=== PATIENT | male | born 1955 | race Caucasian/White ===

== ENCOUNTER 2019-02-18 12:41 | Inpatient (IN) | payer BC ==
[2019-02-18] MEDS ORDERED: NS 0.9% 1000 ML** 1,000 ML IV ONE ×2 (13:05→13:59)
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
[2019-02-18 14:21] LABS: ABS Basophils 0.1 10^3/ul (0-0.2); ABS Eosinophils 0 10^3/ul (0-0.6); ABS Monocytes 1.2 10^3/ul (0-0.8); ABS Neutrophils 13.8 10^3/ul (1.5-7.7); ABS Nucleated RBC 0 10^3/ul; Eosinophil % 0.1 %; Hematocrit 29 % (36-46); Hemoglobin 9.7 g/dL (14.0-18.0); Mean Corpuscular HGB Conc 33 g/dL (31-36); Mean Corpuscular Hemoglobin 31 pg (27-31); Mean Corpuscular Volume 95 fL (80-94); Mean Platelet Volume 8.1 fL (7.4-10.4); Nucleated Red Blood Cells % 0; Platelet Count 445 10^3/uL (150-450); Red Cell Distribution Width 13 % (10.5-15)
[2019-02-18 14:41] LABS: Troponin I 0.02 ng/mL (<0.04)
[2019-02-18 14:52] LABS: Albumin 2.9 g/dL (3.2-5.2); Albumin/Globulin Ratio 0.7 (1-3); BUN/Creatinine Ratio 22.1 (8-20); Calcium 8.3 mg/dL (8.6-10.3); EGFR African American 67.3 (>60); EGFR Non-African American 55.6 (>60); Magnesium 1.6 mg/dL (1.9-2.7); Potassium 4.2 mmol/L (3.5-5.0); Total Bilirubin 0.5 mg/dL (0.2-1.0); Total Protein 6.9 g/dL (6.4-8.9)
[2019-02-18] MEDS ORDERED: Insulin REGULAR(*) 1 UNITS UNIT IV PUSH ONE (15:10)
[2019-02-18] MEDS ORDERED: Insulin IVPB 100 units/100 ml 100 UNITS/100 ML UNIT IVPB ONE (15:10)
[2019-02-18] MEDS ORDERED: Ondansetron INJ* 2 MG/ML VIAL IV PRN (16:32)
[2019-02-18] MEDS ORDERED: Magnesium Sulfate 2 GM IV* 2 GM/50 ML BAG IVPB ONE (16:45)
[2019-02-18] MEDS ORDERED: Dextrose 50% Syringe 50 ML* 25 GM/50 ML SYRINGE IV PUSH PRN ×2 (17:00→19:17)
[2019-02-18] MEDS ORDERED: Insulin GLARGINE(*) 1 UNITS UNIT SUBCUT ONE (17:00)
[2019-02-18] MEDS ORDERED: Insulin LISPRO* 1 UNITS UNIT SUBCUT ONE (17:00)
[2019-02-18] MEDS ORDERED: Acetaminophen TAB* 325 MG PO PRN (17:07)
[2019-02-18] MEDS ORDERED: Lorazepam PYXIS KEY PRN (17:14)
[2019-02-18] MEDS ORDERED: Iodixanol* (CONTRAST) 320 MG/ML 100 ML SDV IV ONE (17:30)
[2019-02-18] MEDS ORDERED: LORazepam TAB(*) 1 MG PO SCH (18:00)
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
[2019-02-18] MEDS: NS 0.9% 1000 ML** 1,000 ML IV SCH (19:23)
[2019-02-18] MEDS: oxyCODONE TAB* 5 MG TAB PO PRN ×2 (20:16→23:24)
[2019-02-18] MEDS: Metoprolol Succinate XL TAB* 100 MG PO SCH (20:16)
[2019-02-18] MEDS: Nicotine Patch Removal NOTE PATCH OFF SCH (20:17)
[2019-02-18] MEDS: Insulin LISPRO* 1 UNITS UNIT SUBCUT SCH (20:18)
[2019-02-18 22:28] LABS: BUN/Creatinine Ratio 21.1 (8-20); EGFR African American 83.2 (>60); EGFR Non-African American 68.8 (>60); Potassium 3.1 mmol/L (3.5-5.0)
[2019-02-18] MEDS: KCL 20 MEQ/100 ML IVPREMIX* 20 MEQ/100 ML BAG IV SCH (23:22)
[2019-02-19] MEDS: KCL 20 MEQ/100 ML IVPREMIX* 20 MEQ/100 ML BAG IV SCH ×2 (01:36→03:49)
[2019-02-19] MEDS: NS 0.9% 1000 ML** 1,000 ML IV SCH ×3 (03:18→19:59)
[2019-02-19 07:03] LABS: Calcium 7.8 mg/dL (8.6-10.3); Magnesium 1.6 mg/dL (1.9-2.7); Potassium 4.4 mmol/L (3.5-5.0)
[2019-02-19 07:09] LABS: BUN/Creatinine Ratio 21.1 (8-20); EGFR African American 97.5 (>60); EGFR Non-African American 80.6 (>60)
[2019-02-19 07:27] LABS: TSH (Thyroid Stimulating Horm) 0.8 mcIU/mL (0.34-5.60)
[2019-02-19 07:47] LABS: ABS Basophils 0.1 10^3/ul (0-0.2); ABS Eosinophils 0 10^3/ul (0-0.6); ABS Lymphocytes 0.8 10^3/ul (1.0-4.8); ABS Monocytes 1.1 10^3/ul (0-0.8); ABS Neutrophils 12.1 10^3/ul (1.5-7.7); ABS Nucleated RBC 0 10^3/ul; Eosinophil % 0.1 %; Hematocrit 28 % (36-46); Hemoglobin 9.1 g/dL (14.0-18.0); Lymphocyte % 5.7 %; Mean Corpuscular HGB Conc 33 g/dL (31-36); Mean Corpuscular Hemoglobin 31 pg (27-31); Mean Corpuscular Volume 94 fL (80-94); Mean Platelet Volume 7.7 fL (7.4-10.4); Nucleated Red Blood Cells % 0; Platelet Count 407 10^3/uL (150-450); Red Blood Count 2.93 10^6 /uL (4.18-5.48); Red Cell Distribution Width 13 % (10.5-15); White Blood Count 14.1 10^3/uL (3.5-10.8)
[2019-02-19] MEDS: Tiotropium CAP.INH* CAP.INH/18 MCG (USE ORDER SET !) INH SCH (07:49)
[2019-02-19] MEDS: Insulin LISPRO* 1 UNITS UNIT SUBCUT SCH ×4 (08:34→21:20)
[2019-02-19] MEDS: Atorvastatin* 40 MG TAB PO SCH (08:35)
[2019-02-19] MEDS: Folic Acid TAB* 1 MG PO SCH (08:35)
[2019-02-19] MEDS: Multivitamins/Minerals TAB PO SCH (08:35)
[2019-02-19] MEDS: Thiamine TAB* 100 MG TAB PO SCH (08:35)
[2019-02-19] MEDS: Pantoprazole TAB * 40 MG TAB PO SCH (08:35)
[2019-02-19] MEDS: Nicotine PATCH 14 MG/24 HR* PATCH TRANSDERM SCH (08:35)
[2019-02-19] MEDS ORDERED: Magnesium Sulfate 2 GM IV* 2 GM/50 ML BAG IVPB ONE (08:38)
[2019-02-19] MEDS: oxyCODONE TAB* 5 MG TAB PO PRN ×5 (08:43→22:27)
[2019-02-19] MEDS ORDERED: NS 0.9% 1000 ML** 1,000 ML IV ONE ×2 (08:50→10:48)
[2019-02-19] MEDS ORDERED: Spiriva Inhaler DEVICE* 1 EACH DEVICE INH ONE (09:00)
[2019-02-19] MEDS ORDERED: Insulin GLARGINE(*) 1 UNITS UNIT SUBCUT SCH (09:00)
[2019-02-19] MEDS: Metoprolol Succinate XL TAB* 100 MG PO SCH (09:40)
[2019-02-19] MEDS: Insulin GLARGINE(*) 1 UNITS UNIT SUBCUT SCH (10:10)
[2019-02-19] MEDS ORDERED: Piperacillin/Tazobac ADVAN(*) 3.375 GM in NS 0.9% 100 ML* 100 ML IVPB ONE (12:53)
[2019-02-19] MEDS ORDERED: Zosyn per Pharmacy* NOTE FOLLOW UP SCH (13:00)
[2019-02-19] MEDS: guaiFENesin ER TAB 600 MG PO SCH ×2 (13:57→21:18)
[2019-02-19] MEDS: Azithromycin 500 mg/250 ml NS 500 MG/250 ML BAG IVPB SCH (15:17)
--- NOTE | 2019-02-19 16:32 | PN ---
Subjective Date of Service: 02/19/19 Interval History: Patient seen and examined. States he is in a lot of pain today, localized to right shoulder and chest wall, some in the right upper back. No overt shortness of breath, has a primarily unproductive cough. Denies fevers or chills, no night sweats. This morning BP was low with SBP around 90 with associated tachycardia, no fever. Blood glucose remains high. Objective Active Medications: Acetaminophen (Tylenol Tab*) 650 mg PO Q4H PRN PRN Reason: FEVER/PAIN Atorvastatin Calcium (Lipitor*) 40 mg PO DAILY [facility] Last Admin: 02/19/19 08:35 Dose: 40 mg Dextrose (D50w Syringe 50 Ml*) 12.5 gm IV PUSH .FOR FS < 60 - SS PRN PRN Reason: FS < 60 Folic Acid (Folvite Tab*) 1 mg PO DAILY [facility] Last Admin: 02/19/19 08:35 Dose: 1 mg Guaifenesin (Mucinex*) 600 mg PO BID [facility] Last Admin: 02/19/19 13:57 Dose: 600 mg Sodium Chloride (Ns 0.9% 1000 Ml) 1,000 mls @ 150 mls/hr IV PER RATE [facility] Last Admin: 02/19/19 12:05 Dose: 150 mls/hr Azithromycin (Zithromax 500 Mg/250 Ml) 500 mg in 250 mls @ 250 mls/hr IVPB Q24H [facility] Last Admin: 02/19/19 15:17 Dose: 250 mls/hr Piperacillin Sod/Tazobactam (Sod 3.375 gm/ Sodium Chloride) 100 mls @ 25 mls/ hr IVPB Q8H [facility] Insulin Glargine (Lantus(*)) 16 units SUBCUT Q24H [facility] Last Admin: 02/19/19 10:10 Dose: 11 unit Insulin Human Lispro (Humalog*) 0 units SUBCUT ACHS [facility]; Protocol Last Admin: 02/19/19 13:45 Dose: 6 units Lorazepam (Ativan Tab(*)) 0 - 6 mg PO .PER [facility] PROTOCOL [facility]; Protocol Metoprolol Succinate (Toprol Xl Tab*) 100 mg PO BID [facility] Last Admin: 02/19/19 09:40 Dose: Not Given Miscellaneous (Ativan Pyxis Adam) 1 ea N/A .PYXIS ADAM PRN PRN Reason: PER PROTOCOL Multivitamins/Minerals (Theragran/Minerals Tab*) 1 tab PO DAILY [facility] Last Admin: 02/19/19 08:35 Dose: 1 tab Nicotine (Nicotine Patch 14 Mg/24 Hr*) 1 patch TRANSDERM DAILY [facility] Last Admin: 02/19/19 08:35 Dose: Not Given Ondansetron HCl (Zofran Inj*) 4 mg IV Q4H PRN PRN Reason: NAUSEA/VOMITING Oxycodone HCl (Roxycodone Tab*) 10 mg PO BEDTIME PRN PRN Reason: PAIN Last Admin: 02/18/19 23:24 Dose: 5 mg Oxycodone HCl (Roxycodone Tab*) 10 mg PO Q8H PRN PRN Reason: PAIN - SEVERE Last Admin: 02/19/19 12:08 Dose: 10 mg Oxycodone HCl (Roxycodone Tab*) 5 mg PO Q4H PRN PRN Reason: PAIN - MODERATE Pantoprazole Sodium (Protonix Tab*) 40 mg PO DAILY [facility] Last Admin: 02/19/19 08:35 Dose: 40 mg Pharmacy Consult (Zosyn Per Pharmacy*) 1 note FOLLOW UP .ZOSYN PER PHARMACY [facility] Pharmacy Profile Note (Nicotine Patch Removal Note*) 1 note PATCH OFF 2100 [facility] Last Admin: 02/18/19 20:17 Dose: Not Given Thiamine HCl (Vitamin B-1 Tab*) 100 mg PO DAILY [facility] Last Admin: 02/19/19 08:35 Dose: 100 mg Tiotropium Hanna (Spiriva Cap.Inh*) 1 cap INH DAILY [facility] Last Admin: 02/19/19 07:49 Dose: 1 cap Vital Signs - 8 hr 02/19/19 02/19/19 02/19/19 08:43 09:40 10:40 Temperature 98.8 F Pulse Rate 102 Respiratory 12 30 Rate Blood Pressure 104/54 90/50 (mmHg) O2 Sat by Pulse 93 Oximetry 02/19/19 02/19/19 02/19/19 11:00 11:05 12:00 Temperature Pulse Rate Respiratory 28 Rate Blood Pressure 90/62 115/70 (mmHg) O2 Sat by Pulse Oximetry 02/19/19 02/19/19 02/19/19 12:08 13:24 13:27 Temperature 97.1 F Pulse Rate 94 Respiratory 32 18 Rate Blood Pressure 87/63 104/60 (mmHg) O2 Sat by Pulse 88 92 Oximetry 02/19/19 02/19/19 02/19/19 14:00 14:09 15:30 Temperature 97.0 F 97.0 F Pulse Rate 98 98 Respiratory 14 14 32 Rate Blood Pressure 100/59 100/59 (mmHg) O2 Sat by Pulse 93 93 Oximetry 02/19/19 02/19/19 15:35 15:36 Temperature 98.7 F Pulse Rate 105 Respiratory 20 Rate Blood Pressure 108/64 (mmHg) O2 Sat by Pulse 98 Oximetry Oxygen Devices in Use Now: None Appearance: alert, NAD Eyes: No Scleral Icterus, PERRLA Ears/Nose/Mouth/Throat: NL Teeth, Lips, Gums, Mucous Membranes Moist Neck: NL Appearance and Movements; NL JVP, Trachea Midline Respiratory: Symmetrical Chest Expansion and Respiratory Effort, - - diminished RUL with area of poor air exchange, no wheeze or rhonchi noted Cardiovascular: NL Sounds; No Murmurs; No JVD, RRR, No Edema Abdominal: NL Sounds; No Tenderness; No Distention Extremities: No Edema, No Clubbing, Cyanosis Skin: No Rash or Ulcers, No Nodules or Sclerosis Neurological: Alert and Oriented x 3, NL Sensation, NL Gait Nutrition: Taking PO's Result Diagrams: 02/19/19 07:34 02/19/19 06:22 Diagnostic Imaging: Patient Name: CARMINA LEÓN Medical Record#: [id number] Ordering Physician: Nohemy Ham NP Acct.#: [id number] : 1955 Age: 63 Sex: M Location: [address] [place] [address] MEDICAL Exam Date: 02/18/191638 ADM Status: ADM Joe Order Information: CTA CHEST Accession Number: [id number] CPT: 78462 INDICATION: Right lung mass. COMPARISON: Comparison is made with a prior CT of the chest from February 17, 2019. TECHNIQUE: A CT angiogram of the chest was performed with intravenous following intravenous injection of 79 ml of Visipaque 320 nonionic contrast. Contiguous axial sections were obtained from the lung apices through the lung bases. Images were reconstructed in the coronal and sagittal planes. FINDINGS: PULMONARY ARTERIES: There is relatively homogeneous opacification of the pulmonary arteries. No intraluminal filling defect or pulmonary embolism is seen. HEART: The heart is within normal limits in size. No pericardial effusion is present. There are coronary calcifications present. THORACIC AORTA: The thoracic aorta is normal in caliber and demonstrates homogeneous contrast opacification. LUNGS: There is a large masslike infiltrate present in the right upper lobes with internal cystic change and air bronchograms. This is unchanged from the recent prior CT of the chest No pleural effusion is present. MEDIASTINUM: There are enlarged lymph nodes present in the right paratracheal region at the thoracic inlet measuring 1.4 cm in transverse dimension. There are enlarged precarinal lymph nodes measuring 1.4 cm in size. There are also enlarged aorticopulmonary window lymph nodes. There are multiple enlarged right hilar lymph nodes measuring up to 2.2 cm in transverse dimension. ABDOMEN: No acute findings are seen on the visualized portion of the upper abdomen. The liver appears enlarged with fatty infiltration with a more focal area of decreased density present in the anterior aspect of the left hepatic lobe adjacent to a falciform ligament suggestive of more focal fatty infiltration. There are bilateral adrenal masses measuring 1.9 x 0.9 cm on the right side and 3.0 x 2.5 cm on the left side. These appear unchanged from prior CTs of the chest dating back to October 2016 and therefore most consistent with benign adenomas. In addition there is a nodule arising from the superior aspect of the left kidney measuring 2.5 x 1.7 cm in size measuring greater than fluid density consistent with a complex cyst or solid mass. This is also relatively stable when compared with the prior CT studies. BONES: No significant focal osseous abnormality is seen. IMPRESSION: 1. NO EVIDENCE FOR PULMONARY EMBOLISM. 2. LARGE MASSLIKE RIGHT UPPER LOBE INFILTRATE. DIFFERENTIAL DIAGNOSIS WOULD INCLUDE NECROTIZING PNEUMONIA OR ALTERNATIVELY A NEOPLASTIC PROCESS. 3. ENLARGED MEDIASTINAL AND RIGHT HILAR LYMPH NODES. 4. STABLE BILATERAL ADRENAL MASSES. 4. HEPATOMEGALY AND HEPATIC STENOSIS. Assess/Plan/Problems-Billing Assessment: This is a 63 year old male with hx of COPD and ETOH use that presented to the ER after being sent by his PCP for evaluation of abnormal findings on screening chest CT. - Patient Problems (1) Necrotizing pneumonia Code(s): J85.0 - GANGRENE AND NECROSIS OF LUNG SNOMED Code(s): 6619157 Comment: - Discussed CTA chest with Dr. Singleton and Dr Fatima, although lung mass may be in the differential, patient's presentation is more consistent with a necrotizing pneumonia, especially given hypotension, fever, tachycardia, hyperglycemia and leukocytosis - Will treat for CAP, check urine strep antigen and legionella, start empiric zosyn and azithromycin, obtain sputum culture - Blood cultures checked this morning when patient became hypotensive, will follow - Nebs PRN, mucinex BID, flutter valve - No immediate indication for biopsy at this time. If this does represent a mass with a post-obstructive pneumonia, will still need to treat with antibiotics now, then attempt bronchoscopy or US guided biopsy in the near future (2) COPD (chronic obstructive pulmonary disease) Code(s): J44.9 - CHRONIC OBSTRUCTIVE PULMONARY DISEASE, UNSPECIFIED SNOMED Code(s): 38388673 Comment: - History of tobacco use - Continue home inhalers (3) EtOH dependence Code(s): F10.20 - ALCOHOL DEPENDENCE, UNCOMPLICATED SNOMED Code(s): 19583136 Comment: - On [facility] protocol, not currently scoring - continue folic acid, thiamine and multivitamin (4) Uncontrolled type 2 diabetes mellitus with hyperglycemia Code(s): E11.65 - TYPE 2 DIABETES MELLITUS WITH HYPERGLYCEMIA SNOMED Code(s): 159222890 Comment: - A1c 14.9 - Initially no anion gap, however sugars have remained elevated since admission and gap is 15 today - Recheck labs in AM; potassium corrected, sodium remains low, replete magnesium - s/p 2 liter bolus this morning, continue IVNS at 150ml/hr - Increase weight-based lantus to 18units daily, continue lispro SS with CC diet limit 2 carb per meal - Will consult endocrine before discharge to address revised outpatient med regimen (5) Chronic pain Code(s): G89.29 - OTHER CHRONIC PAIN SNOMED Code(s): 92679521 Comment: - Continue oxycodone at lower dose given low BP - May want to consider gabapentin or other synergistic agent rather that adding narcotics given acute illness (6) Hypotension Comment: - Concern for sepsis this morning, however, repeat lactic is 1.1 - Responded well to NS boluses x2 - Tachycardia is likely 2/2 alcohol withdrawl and severe dehydration/ hyperglycemia rather than sepsis - Hold metoprolol, restart short acting at lower dose when BP stable (7) DVT prophylaxis Code(s): PSS2201 - SNOMED Code(s): 121814845 Comment: - HSQ (8) Full code status Code(s): Z78.9 - OTHER SPECIFIED HEALTH STATUS SNOMED Code(s): 586574701 Status and Disposition: Inpatient, acute/guarded.
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
[2019-02-19 17:10] LABS: Urine Appearance Cloudy; Urine Bacteria Absent (Absent); Urine Bilirubin Negative (Negative); Urine Blood 1+ (Negative); Urine Color Yellow; Urine Glucose 2+(150 mg/dL) (Negative); Urine Ketones Trace (Negative); Urine Nitrite Negative (Negative); Urine Protein Negative (Negative); Urine Red Blood Cell Trace(0-2/hpf) (Absent); Urine Specific Gravity 1.011 (1.010-1.030); Urine Squamous Epithelial Cell Present (Absent); Urine Urobilinogen Negative (Negative); Urine White Blood Cell 1+(6-10/hpf) (Absent)
[2019-02-19] MEDS: ZOSYN 3.375 GM Q8H per EXTENDED INFUSION IVPB SCH ×2 (18:00)
[2019-02-19] MEDS: Nicotine Patch Removal NOTE PATCH OFF SCH (21:14)
[2019-02-19] MEDS: Acetaminophen TAB* 325 MG PO PRN (21:18)
[2019-02-19] MEDS: Heparin VIAL(*) 5000 UNITS/ML VIAL (FIVE THOUSAND) SUBCUT SCH (21:20)
[2019-02-20] MEDS: ZOSYN 3.375 GM Q8H per EXTENDED INFUSION IVPB SCH ×6 (02:05→19:29)
[2019-02-20] MEDS: NS 0.9% 1000 ML** 1,000 ML IV SCH ×2 (02:42→10:05)
--- NOTE | 2019-02-20 04:29 | PN ---
Progress Note - Progress Note Date of Service: 02/20/19 Note: Event Note; Called to see patient re heart rate around 150. Vitals recorded earlier were: Selected Entries 02/19/19 02/19/19 02/20/19 23:22 23:36 00:43 Temperature 36.3 C Pulse Rate 91 Respiratory 24 18 Rate Blood Pressure 94/53 96/54 (mmHg) O2 Sat by Pulse 95 Oximetry 02/20/19 01:14 Temperature Pulse Rate 97 Respiratory Rate Blood Pressure 108/54 (mmHg) O2 Sat by Pulse Oximetry EKG: shows possible A-fib, vs sinus tachy w/ variable rate. Patient has pneumonia, alcohol withdrawal. Will move to telemetry floor, start diltiazem drip.
[2019-02-20] MEDS ORDERED: Diltiazem IV push/loading dose 5 MG/ML 5 ML vial (25 mg) IV SLOW PU ONE (04:33)
[2019-02-20] MEDS ORDERED: Diltiazem IV VIAL* 125 MG in NS 0.9% 100 ML* 100 ML IV SCH ×5 (05:00→18:00)
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
[2019-02-20 06:30] LABS: Albumin 2.3 g/dL (3.2-5.2); Calcium 7.4 mg/dL (8.6-10.3); Total Bilirubin 0.4 mg/dL (0.2-1.0)
[2019-02-20 06:36] LABS: Albumin/Globulin Ratio 0.7 (1-3); BUN/Creatinine Ratio 13.4 (8-20); EGFR African American 115.6 (>60); EGFR Non-African American 95.5 (>60); Globulin 3.2 g/dL (2-4); Total Protein 5.5 g/dL (6.4-8.9)
[2019-02-20 06:47] LABS: Magnesium 1.6 mg/dL (1.9-2.7); Potassium 3.5 mmol/L (3.5-5.0)
[2019-02-20 08:27] LABS: ABS Basophils 0.1 10^3/ul (0-0.2); ABS Eosinophils 0 10^3/ul (0-0.6); ABS Lymphocytes 0.7 10^3/ul (1.0-4.8); ABS Neutrophils 10.5 10^3/ul (1.5-7.7); ABS Nucleated RBC 0 10^3/ul; Eosinophil % 0.4 %; Hematocrit 27 % (42-52); Hemoglobin 9.1 g/dL (14.0-18.0); Lymphocyte % 5.3 %; Mean Corpuscular HGB Conc 33 g/dL (31-36); Mean Corpuscular Hemoglobin 32 pg (27-31); Mean Corpuscular Volume 95 fL (80-94); Mean Platelet Volume 7.3 fL (7.4-10.4); Nucleated Red Blood Cells % 0; Platelet Count 426 10^3/uL (150-450); Red Blood Count 2.88 10^6 /uL (4.18-5.48); Red Cell Distribution Width 13 % (10.5-15); White Blood Count 12.2 10^3/uL (3.5-10.8)
[2019-02-20] MEDS: Tiotropium CAP.INH* CAP.INH/18 MCG (USE ORDER SET !) INH SCH (08:45)
[2019-02-20] MEDS: Nicotine PATCH 14 MG/24 HR* PATCH TRANSDERM SCH (09:09)
[2019-02-20] MEDS ORDERED: Metoprolol Succinate XL TAB* 100 MG PO ONE (09:15)
[2019-02-20] MEDS: Insulin LISPRO* 1 UNITS UNIT SUBCUT SCH ×4 (09:17→20:46)
[2019-02-20] MEDS: Insulin GLARGINE(*) 1 UNITS UNIT SUBCUT SCH (09:17)
[2019-02-20] MEDS: Heparin VIAL(*) 5000 UNITS/ML VIAL (FIVE THOUSAND) SUBCUT SCH (09:18)
[2019-02-20] MEDS: Atorvastatin* 40 MG TAB PO SCH (09:24)
[2019-02-20] MEDS: Thiamine TAB* 100 MG TAB PO SCH (09:25)
[2019-02-20] MEDS: Folic Acid TAB* 1 MG PO SCH (09:25)
[2019-02-20] MEDS: guaiFENesin ER TAB 600 MG PO SCH ×2 (09:25→20:46)
[2019-02-20] MEDS: Pantoprazole TAB * 40 MG TAB PO SCH (09:25)
[2019-02-20] MEDS: Multivitamins/Minerals TAB PO SCH (09:25)
[2019-02-20] MEDS: Acetaminophen TAB* 325 MG PO PRN (09:25)
--- NOTE | 2019-02-20 12:00 | PN ---
Subjective Date of Service: 02/20/19 Interval History: Patient seen and examined. Overnight events noted, patient on cardizem drip at 7.5 mg, remains at rate of 140's. Patient also scoring on WA protocol with complaints of increased cough, fever and tachypnea. and daughter at bedside. Objective Active Medications: Acetaminophen (Tylenol Tab*) 650 mg PO Q4H PRN PRN Reason: FEVER/PAIN Last Admin: 02/20/19 09:25 Dose: 650 mg Atorvastatin Calcium (Lipitor*) 40 mg PO DAILY [facility] Last Admin: 02/20/19 09:24 Dose: 40 mg Dextrose (D50w Syringe 50 Ml*) 12.5 gm IV PUSH .FOR FS < 60 - SS PRN PRN Reason: FS < 60 Enoxaparin Sodium (Lovenox(*)) 80 mg SUBCUT Q12H [facility] Folic Acid (Folvite Tab*) 1 mg PO DAILY [facility] Last Admin: 02/20/19 09:25 Dose: 1 mg Guaifenesin (Mucinex*) 600 mg PO BID [facility] Last Admin: 02/20/19 09:25 Dose: 600 mg Sodium Chloride (Ns 0.9% 1000 Ml) 1,000 mls @ 150 mls/hr IV PER RATE [facility] Last Admin: 02/20/19 10:05 Dose: 150 mls/hr Azithromycin (Zithromax 500 Mg/250 Ml) 500 mg in 250 mls @ 250 mls/hr IVPB Q24H [facility] Last Admin: 02/19/19 15:17 Dose: 250 mls/hr Piperacillin Sod/Tazobactam (Sod 3.375 gm/ Sodium Chloride) 100 mls @ 25 mls/ hr IVPB Q8H [facility] Last Admin: 02/20/19 11:36 Dose: 25 mls/hr Diltiazem HCl 125 mg/ Sodium (Chloride) 125 mls @ 10 mls/hr IV Q24H [facility]; Protocol Insulin Glargine (Lantus(*)) 16 units SUBCUT Q24H [facility] Last Admin: 02/20/19 09:17 Dose: 16 unit Insulin Human Lispro (Humalog*) 0 units SUBCUT ACHS [facility]; Protocol Last Admin: 02/20/19 09:17 Dose: 3 units Lorazepam (Ativan Tab(*)) 0 - 6 mg PO .PER [facility] PROTOCOL [facility]; Protocol Last Admin: 02/20/19 07:48 Dose: 2 mg Multivitamins/Minerals (Theragran/Minerals Tab*) 1 tab PO DAILY [facility] Last Admin: 02/20/19 09:25 Dose: 1 tab Nicotine (Nicotine Patch 14 Mg/24 Hr*) 1 patch TRANSDERM DAILY [facility] Last Admin: 02/20/19 09:09 Dose: Not Given Ondansetron HCl (Zofran Inj*) 4 mg IV Q4H PRN PRN Reason: NAUSEA/VOMITING Oxycodone HCl (Roxycodone Tab*) 10 mg PO BEDTIME PRN PRN Reason: PAIN Last Admin: 02/18/19 23:24 Dose: 5 mg Oxycodone HCl (Roxycodone Tab*) 10 mg PO Q8H PRN PRN Reason: PAIN - SEVERE Last Admin: 02/19/19 12:08 Dose: 10 mg Oxycodone HCl (Roxycodone Tab*) 5 mg PO Q4H PRN PRN Reason: PAIN - MODERATE Last Admin: 02/19/19 22:27 Dose: 5 mg Pantoprazole Sodium (Protonix Tab*) 40 mg PO DAILY [facility] Last Admin: 02/20/19 09:25 Dose: 40 mg Pharmacy Consult (Zosyn Per Pharmacy*) 1 note FOLLOW UP .ZOSYN [facility]ACY [facility] Pharmacy Profile Note (Nicotine Patch Removal Note*) 1 note PATCH OFF 2100 [facility] Last Admin: 02/19/19 21:14 Dose: Not Given Thiamine HCl (Vitamin B-1 Tab*) 100 mg PO DAILY [facility] Last Admin: 02/20/19 09:25 Dose: 100 mg Tiotropium [place] (Spiriva Cap.Inh*) 1 cap INH DAILY [facility] Last Admin: 02/20/19 08:45 Dose: 1 cap Vital Signs - 8 hr 02/20/19 02/20/19 02/20/19 04:09 05:05 05:06 Temperature 98.4 F 99.1 F Pulse Rate 154 160 Respiratory 20 20 Rate Blood Pressure 106/57 108/60 109/80 (mmHg) O2 Sat by Pulse 97 94 Oximetry 02/20/19 02/20/19 02/20/19 05:16 05:21 05:26 Temperature Pulse Rate Respiratory Rate Blood Pressure 101/53 108/60 147/92 (mmHg) O2 Sat by Pulse Oximetry 02/20/19 02/20/19 02/20/19 05:31 05:36 05:41 Temperature Pulse Rate Respiratory Rate Blood Pressure 125/68 109/60 125/70 (mmHg) O2 Sat by Pulse Oximetry 02/20/19 02/20/19 02/20/19 05:46 05:51 05:56 Temperature Pulse Rate Respiratory Rate Blood Pressure 111/68 130/68 104/76 (mmHg) O2 Sat by Pulse Oximetry 02/20/19 02/20/19 02/20/19 06:01 06:06 06:07 Temperature Pulse Rate Respiratory Rate Blood Pressure 128/76 103/68 107/57 (mmHg) O2 Sat by Pulse Oximetry 02/20/19 02/20/19 02/20/19 06:21 06:30 06:31 Temperature Pulse Rate Respiratory Rate Blood Pressure 98/69 122/81 120/76 (mmHg) O2 Sat by Pulse Oximetry 02/20/19 02/20/19 02/20/19 06:37 06:46 06:49 Temperature Pulse Rate Respiratory Rate Blood Pressure 144/91 143/87 138/85 (mmHg) O2 Sat by Pulse Oximetry 02/20/19 02/20/19 02/20/19 07:00 07:01 07:16 Temperature Pulse Rate Respiratory 24 Rate Blood Pressure 109/80 114/72 (mmHg) O2 Sat by Pulse Oximetry 02/20/19 02/20/19 02/20/19 07:31 07:39 07:46 Temperature 100.2 F Pulse Rate 158 Respiratory 24 Rate Blood Pressure 126/92 114/82 (mmHg) O2 Sat by Pulse 94 Oximetry 02/20/19 02/20/19 02/20/19 07:48 08:00 08:01 Temperature Pulse Rate Respiratory 24 24 Rate Blood Pressure 120/64 (mmHg) O2 Sat by Pulse Oximetry 02/20/19 02/20/19 02/20/19 08:16 08:24 08:45 Temperature Pulse Rate 130 Respiratory 18 Rate Blood Pressure 124/74 132/101 (mmHg) O2 Sat by Pulse 92 Oximetry 02/20/19 02/20/19 02/20/19 08:46 09:16 09:46 Temperature Pulse Rate Respiratory Rate Blood Pressure 121/82 129/81 134/83 (mmHg) O2 Sat by Pulse Oximetry 02/20/19 02/20/19 02/20/19 09:57 10:01 10:06 Temperature Pulse Rate Respiratory Rate Blood Pressure 114/77 112/75 127/95 (mmHg) O2 Sat by Pulse Oximetry 02/20/19 02/20/19 02/20/19 10:11 10:17 10:22 Temperature Pulse Rate Respiratory Rate Blood Pressure 122/82 130/118 115/71 (mmHg) O2 Sat by Pulse Oximetry 02/20/19 02/20/19 02/20/19 10:26 10:32 10:36 Temperature Pulse Rate Respiratory Rate Blood Pressure 105/73 86/58 97/64 (mmHg) O2 Sat by Pulse Oximetry 02/20/19 02/20/19 02/20/19 10:41 10:43 10:56 Temperature Pulse Rate Respiratory Rate Blood Pressure 94/61 95/63 93/65 (mmHg) O2 Sat by Pulse Oximetry 02/20/19 02/20/19 02/20/19 11:11 11:15 11:26 Temperature 98.6 F Pulse Rate 89 Respiratory 42 Rate Blood Pressure 113/63 91/57 (mmHg) O2 Sat by Pulse 98 Oximetry 02/20/19 11:39 Temperature Pulse Rate Respiratory 16 Rate Blood Pressure (mmHg) O2 Sat by Pulse Oximetry Oxygen Devices in Use Now: Nasal Cannula Appearance: alert, moderate distress Eyes: No Scleral Icterus, PERRLA Ears/Nose/Mouth/Throat: NL Teeth, Lips, Gums, Mucous Membranes Moist Neck: NL Appearance and Movements; NL JVP, Trachea Midline Respiratory: - - accessory muscle use, respirations shallow, bilateral insp/exp wheeze, noted tachypnea Abdominal: NL Sounds; No Tenderness; No Distention Extremities: No Edema, No Clubbing, Cyanosis Skin: No Rash or Ulcers, No Nodules or Sclerosis Neurological: Alert and Oriented x 3, - - weak, tremulous Nutrition: Taking PO's Result Diagrams: 02/20/19 08:18 02/20/19 06:05 Microbiology and Other Data: Microbiology 02/19/19 11:06 Aerobic Blood Culture - Preliminary Blood Venous No Growth Day 1 Anaerobic Blood Culture - Preliminary No Growth Day 1 02/19/19 16:40 Legionella Urinary Antigen - Final Urine Negative Legionella Antigen Streptococcus pneumoniae Ag Screen - Final Negative S. pneumo Antigen 02/19/19 15:36 Gram Stain - Final Sputum Expectorated Diagnostic Imaging: Patient Name: CARMINA LEÓN Medical Record#: [id number] Ordering Physician: Nohemy Ham NP Acct.#: [id number] : 1955 Age: 63 Sex: M Location: [address] [place] [address] MEDICAL Exam Date: 02/18/191638 ADM Status: ADM Joe Order Information: CTA CHEST Accession Number: [id number] CPT: 09329 INDICATION: Right lung mass. COMPARISON: Comparison is made with a prior CT of the chest from February 17, 2019. TECHNIQUE: A CT angiogram of the chest was performed with intravenous following intravenous injection of 79 ml of Visipaque 320 nonionic contrast. Contiguous axial sections were obtained from the lung apices through the lung bases. Images were reconstructed in the coronal and sagittal planes. FINDINGS: PULMONARY ARTERIES: There is relatively homogeneous opacification of the pulmonary arteries. No intraluminal filling defect or pulmonary embolism is seen. HEART: The heart is within normal limits in size. No pericardial effusion is present. There are coronary calcifications present. THORACIC AORTA: The thoracic aorta is normal in caliber and demonstrates homogeneous contrast opacification. LUNGS: There is a large masslike infiltrate present in the right upper lobes with internal cystic change and air bronchograms. This is unchanged from the recent prior CT of the chest No pleural effusion is present. MEDIASTINUM: There are enlarged lymph nodes present in the right paratracheal region at the thoracic inlet measuring 1.4 cm in transverse dimension. There are enlarged precarinal lymph nodes measuring 1.4 cm in size. There are also enlarged aorticopulmonary window lymph nodes. There are multiple enlarged right hilar lymph nodes measuring up to 2.2 cm in transverse dimension. ABDOMEN: No acute findings are seen on the visualized portion of the upper abdomen. The liver appears enlarged with fatty infiltration with a more focal area of decreased density present in the anterior aspect of the left hepatic lobe adjacent to a falciform ligament suggestive of more focal fatty infiltration. There are bilateral adrenal masses measuring 1.9 x 0.9 cm on the right side and 3.0 x 2.5 cm on the left side. These appear unchanged from prior CTs of the chest dating back to October 2016 and therefore most consistent with benign adenomas. In addition there is a nodule arising from the superior aspect of the left kidney measuring 2.5 x 1.7 cm in size measuring greater than fluid density consistent with a complex cyst or solid mass. This is also relatively stable when compared with the prior CT studies. BONES: No significant focal osseous abnormality is seen. IMPRESSION: 1. NO EVIDENCE FOR PULMONARY EMBOLISM. 2. LARGE MASSLIKE RIGHT UPPER LOBE INFILTRATE. DIFFERENTIAL DIAGNOSIS WOULD INCLUDE NECROTIZING PNEUMONIA OR ALTERNATIVELY A NEOPLASTIC PROCESS. 3. ENLARGED MEDIASTINAL AND RIGHT HILAR LYMPH NODES. 4. STABLE BILATERAL ADRENAL MASSES. 4. HEPATOMEGALY AND HEPATIC STENOSIS. Assess/Plan/Problems-Billing Assessment: This is a 63 year old male with hx of COPD and ETOH use that presented to the ER after being sent by his PCP for evaluation of abnormal findings on screening chest CT. - Patient Problems (1) Respiratory distress Code(s): R06.03 - ACUTE RESPIRATORY DISTRESS SNOMED Code(s): 084078633 Comment: - In presence of severe PNA, afib with RVR and alcohol withdrawal - RR 40s, ABG with PO2 71% - Will transfer to ICU for vapotherm (2) Atrial fibrillation with rapid ventricular response Code(s): I48.91 - UNSPECIFIED ATRIAL FIBRILLATION SNOMED Code(s): 284936250682425 Comment: - On cardizem drip, rate changed several times - Metoprolol XL restarted - Rate improved, but not converted - Start therapeutic dose lovenox for anticoagulation - No reported hx of PAF per family, but patient was on high dose BB at home (3) Necrotizing pneumonia Code(s): J85.0 - GANGRENE AND NECROSIS OF LUNG SNOMED Code(s): 7569401 Comment: - Consults with Dr. Singleton and Dr. Fatima appreciated, less likely mass, continue to treat for CAP with empiric zosyn and azithromycin - Febrile today, tylenol PRN, follow WBC counts - Pending sputum culture - Negative urine strep antigen, negative legionella - Follow blood cultures - Nebs PRN, mucinex BID, flutter valve - No immediate indication for biopsy at this time. If this does represent a mass with a post-obstructive pneumonia, will still need to treat with antibiotics now, then attempt bronchoscopy or US guided biopsy in the near future (4) COPD (chronic obstructive pulmonary disease) Code(s): J44.9 - CHRONIC OBSTRUCTIVE PULMONARY DISEASE, UNSPECIFIED SNOMED Code(s): 41286879 Comment: - History of tobacco use - Continue home inhalers (5) EtOH dependence Code(s): F10.20 - ALCOHOL DEPENDENCE, UNCOMPLICATED SNOMED Code(s): 88520372 Comment: - On [facility] protocol, now scoring today and requiring ativan - May need precedex - Continue folic acid, thiamine and multivitamin (6) Uncontrolled type 2 diabetes mellitus with hyperglycemia Code(s): E11.65 - TYPE 2 DIABETES MELLITUS WITH HYPERGLYCEMIA SNOMED Code(s): 651246438 Comment: - A1c 14.9 - Initially no anion gap, however sugars have remained elevated since admission and gap is increasing 15 yesterday and today 17 despite IVF, electrolyte repletion and adequate insulin coverage - Potassium corrected, sodium remains low, magnesium flat at 1.6 desplite 4 grams repletion, continue IVF - Increase weight-based lantus to 18units daily, continue lispro SS with CC diet limit 2 carb per meal - Dr. Rnig consulted (7) Chronic pain Code(s): G89.29 - OTHER CHRONIC PAIN SNOMED Code(s): 03942251 Comment: - Continue oxycodone at lower dose given low BP - May want to consider gabapentin or other synergistic agent rather that adding narcotics given acute illness (8) Hypotension Comment: - Concern for sepsis 02/19, however, repeat lactic was 1.1 - Initially responded well to NS boluses x2 and continued IVF, however BP low again today after cardizem and metoprolol for rate control - continue IVF, may need to consider pressors (9) DVT prophylaxis Code(s): GDX7035 - SNOMED Code(s): 286842223 Comment: - lovenox (10) Full code status Code(s): Z78.9 - OTHER SPECIFIED HEALTH STATUS SNOMED Code(s): 120188822 Status and Disposition: Inpatient, acute/guarded, upgrade to ICU.
[2019-02-20] MEDS ORDERED: NS 0.9% IV ONE (12:45)
[2019-02-20] MEDS ORDERED: DEXMEDETOMIDINE IV ONE (12:45)
--- NOTE | 2019-02-20 13:05 | PN ---
Date of Service: 02/20/19 - HD 3 Critical Care Services: 63 yo M with PMH including HTN, alcohol and tobacco abuse and prediabetes was seen at a regular appointment with PCP on 02/18 and found to have BG > 600. Sent to the ED for further evaluation. On arrival reports weakness and fatigue x 1 week and persistent dry cough for several weeks. On evaluation found to be hemodynamically stable. Physical exam unremarkable. WBC 16.0, BG 585, AG 15 and betahydroxybuterate 4.4. Bolused 2L NS, started on insulin gtt and admitted to the medical service. 02/19: Mild hypotension with SBP 90, HR 105. CT chest with large mass in RUL concerning for necrotizing pneumonia vs neoplasm. CT reviewed with Oncology ( Mani) and pulmonary (Akua) who feel presentation more consistent with necrotizing pneumonia. Started on broadspectrum abx. Lantus and SSI increased for persisent hyperglycemia. 02/20: Developed Afib with RVR, HR 150. Moved to telemetry and started on cardizem gtt. Scoring on [facility] protocol. Developed hypoxia on nasal cannula and requiring escalating doses of cardizem gtt thus he was transferred to ICU. Vital Signs: Temp Pulse Resp BP SpO2 FiO2 98.6 F 103 23 89/68 96 02/20/19 12:34 02/20/19 12:34 02/20/19 12:34 02/20/19 12:34 02/20/19 12:34 Physical Exam: Gen: resting comfortably HEENT: vapotherm cannula in place Lungs: nonlabored breathing Cardiac: irregularly irregular Abdomen: nondistended Extremities: warm, dry Neuro: sleeping Fluid Balance (Past 24 Hours): I= O= Net Intake & Output 02/18/19 02/19/19 02/20/19 02/21/19 06:59 06:59 06:59 06:59 Intake Total 1300 7560 Output Total 250 Balance 1300 7310 Weight 181 lb 3.2 oz Intake: IV Fluids 1300 6360 ABX - ZOSYN 100 NS (0.9%) 2445 IVPB 320 ABX - ZOSYN 100 Oral 0 880 Output: Urine 250 Other: Estimated Void Medium Date of Last Bowel 02/19/19 Movement # Bowel Movements 0 Estimated Stool Amount Small # Voids 0 Labs: Laboratory Results - last 24 hr 02/18/19 02/19/1902/19/19 14:09 16:37 16:40 WBC RBC Hgb Hct MCV MCH MCHC RDW Plt Count MPV Neut % (Auto) Lymph % (Auto) [place]oca % (Auto) Eos % (Auto) Baso % (Auto) Absolute Neuts (auto) Absolute Lymphs (auto) Absolute Monos (auto) Absolute Eos (auto) Absolute Basos (auto) Absolute Nucleated RBC Nucleated RBC % Patient Temperature ABG pH ABG pH (Temp Correct) ABG pCO2 ABG pCO2 (Temp Corrct ABG pO2 ABG pO2 (Temp Correct ABG HCO3 ABG O2 Saturation ABG Base Excess Respiration Rate O2 Delivery Device Ventilator Type Vent Mode FiO2 Inspiratory Time PEEP Pressure Support Pressure Control EPAP IPAP BiPAP Sodium Potassium Chloride Carbon Dioxide Anion Gap BUN Creatinine Est GFR ( Amer) Est GFR (Non-Af Amer) BUN/Creatinine Ratio Glucose POC Glucose (mg/dL) 181 H Calcium Magnesium Total Bilirubin AST ALT Alkaline Phosphatase Total Protein Albumin Globulin Albumin/Globulin Ratio Urine Color Yellow Urine Appearance Cloudy Urine pH 5.0 Ur Specific [place] 1.011 Urine Protein Negative Urine Ketones Trace A Urine Blood 1+ A Urine Nitrate Negative Urine Bilirubin Negative Urine Urobilinogen Negative Ur Leukocyte Esterase Negative Urine WBC (Auto) 1+(6-10/hpf) A Urine RBC (Auto) Trace(0-2/hpf) Ur Squamous Epith Cells Present A Urine Bacteria Absent Urine Glucose 2+(150 mg/dl) A B-Hydroxybutyrate 4.4 H 02/19/19 02/20/19 02/20/19 20:22 06:05 07:48 WBC RBC Hgb Hct MCV MCH MCHC RDW Plt Count MPV Neut % (Auto) Lymph % (Auto) [place]oca % (Auto) Eos % (Auto) Baso % (Auto) Absolute Neuts (auto) Absolute Lymphs (auto) Absolute Monos (auto) Absolute Eos (auto) Absolute Basos (auto) Absolute Nucleated RBC Nucleated RBC % Patient Temperature ABG pH ABG pH (Temp Correct) ABG pCO2 ABG pCO2 (Temp Corrct ABG pO2 ABG pO2 (Temp Correct ABG HCO3 ABG O2 Saturation ABG Base Excess Respiration Rate O2 Delivery Device Ventilator Type Vent Mode FiO2 Inspiratory Time PEEP Pressure Support Pressure Control EPAP IPAP BiPAP Sodium 131 L Potassium 3.5 Chloride 99 L Carbon Dioxide 15 L Anion Gap 17 H BUN 11 Creatinine 0.82 Est GFR ( Amer) 115.6 Est GFR (Non-Af Amer) 95.5 BUN/Creatinine Ratio 13.4 Glucose 152 H POC Glucose (mg/dL) 159 H 191 H Calcium 7.4 L Magnesium 1.6 L Total Bilirubin 0.40 AST 94 H ALT 37 Alkaline Phosphatase 155 H Total Protein 5.5 L Albumin 2.3 L Globulin 3.2 Albumin/Globulin Ratio 0.7 L Urine Color Urine Appearance Urine pH Ur Specific [place] Urine Protein Urine Ketones Urine Blood Urine Nitrate Urine Bilirubin Urine Urobilinogen Ur Leukocyte Esterase Urine WBC (Auto) Urine RBC (Auto) Ur Squamous Epith Cells Urine Bacteria Urine Glucose B-Hydroxybutyrate 02/20/19 02/20/19 02/20/19 08:18 10:40 11:58 WBC 12.2 H RBC 2.88 L Hgb 9.1 L Hct 27 L MCV 95 H MCH 32 H MCHC 33 RDW 13 Plt Count 426 MPV 7.3 L Neut % (Auto) 86.1 Lymph % (Auto) 5.3 Moca % (Auto) 7.8 Eos % (Auto) 0.4 Baso % (Auto) 0.4 Absolute Neuts (auto) 10.5 H Absolute Lymphs (auto) 0.7 L Absolute Monos (auto) 1.0 H Absolute Eos (auto) 0 Absolute Basos (auto) 0.1 Absolute Nucleated RBC 0 Nucleated RBC % 0 Patient Temperature Not Reportable ABG pH 7.41 ABG pH (Temp Correct) Not Reportable ABG pCO2 31 L ABG pCO2 (Temp Corrct Not Reportable ABG pO2 71 L ABG pO2 (Temp Correct Not Reportable ABG HCO3 21.7 ABG O2 Saturation 97.0 ABG Base Excess -4.0 L Respiration Rate Not Reportable O2 Delivery Device 2lpm Ventilator Type Not Reportable Vent Mode Not Reportable FiO2 Not Reportable Inspiratory Time Not Reportable PEEP Not Reportable Pressure Support Not Reportable Pressure Control Not Reportable EPAP Not Reportable IPAP Not Reportable BiPAP Not Reportable Sodium Potassium Chloride Carbon Dioxide Anion Gap BUN Creatinine Est GFR ( Amer) Est GFR (Non-Af Amer) BUN/Creatinine Ratio Glucose POC Glucose (mg/dL) 189 H Calcium Magnesium Total Bilirubin AST ALT Alkaline Phosphatase Total Protein Albumin Globulin Albumin/Globulin Ratio Urine Color Urine Appearance Urine pH Ur Specific [place] Urine Protein Urine Ketones Urine Blood Urine Nitrate Urine Bilirubin Urine Urobilinogen Ur Leukocyte Esterase Urine WBC (Auto) Urine RBC (Auto) Ur Squamous Epith Cells Urine Bacteria Urine Glucose B-Hydroxybutyrate Studies: 02/18 CTA chest - no PE. large masslike right upper lobe infiltrate concerning for necrotizing pneumonia vs neoplasm. enlarged mediastinal and right hilar lymph nodes. hepatomegaly and steatosis. Nutrition: diabetic diet Impression: 63 yo M with necrotizing pneumonia of RUL and hyperglycemia, now with afib with RVR, hypotension and alcohol withdrawal delirium Plan: Cardiovascular: (1) Septic shock; (2) Atrial fibrillation with RVR -- HR 86-176 -- SBP 77-147 -- Telemetry -- Atorvastatin -- Metoprolol Home meds: Metoprolol, Losartan/HCTZ, Rosuvastatin Pulmonary: (1) Acute hypoxic respiratory failure; (2) Necrotizing pneumonia of RUL: (3) Nicotine abuse -- RR 8-44 -- sats 88-100 on vapotherm -- ABG: pH 7.41; pCO2 31; pO2 71; HCO3 21.7; BE -4; %O2 Sat 97.0. -- Guaifenesin -- Spiriva -- Tiotoprium bromide -- Nicoderm patch Home meds: Spiriva, nicoderm patch Gastrointestinal: (1) elevated LFTs; (2) Steatosis of liver -- LFTs Tbili 0.4 ALK 155, follow trend AST 94, follow trend ALT 37 -- diet: carb control -- bowel regimen: None -- ulcer prophylaxis: Protonix -- PRN Zofran Home meds: Prilosec Endocrine: (1) Diabetes mellitus type 2 -- monitor BGs -- Lantus and SSI Home meds: Sitagliptin/Metformin Renal: (1) Hyponatremia, improving; (2) Hypocalcemia; (3) Hypomagnesemia -- UOP: voiding -- Cr 0.82 -- Lytes Na 131 from 128, follow trend K 3.56 Ca 7.4, replace Mag 1.8, replaced Home meds: None Infectious disease: (1) Sepsis; (2) Necrotizing pneumonia -- Tmax 100.2 -- WBC 12.2 from 14.1 -- Micro 5/ Legionella Ag negative S.pneumo Ag negative Sputum in process blood in process UA negative -- ABX Azithromycin Zosyn Home meds: None Neurologic: (1) Acute alcohol withdrawal delirium; (2) Chronic pain syndrome -- PRN Tylenol -- Oxycodone -- Precedex gtt for alcohol withdrawal -- [facility] protocol -- Folic acid, thiamine, MVI Home meds: Oxycodone, Narcan Hematological: (1) Anemia -- Hgb 9.1 from 9.1 -- Plt 426 from 407 -- DVT prophylaxis: therapeutic lovenox for afib Home meds: None Metabolic: (1) Metabolic acidosis -- check lactic acid Home meds: None Deep vein thrombosis prophylaxis: therapeutic lovenox Dietary: Protonix Condition: critical Prognosis: guarded Code status: full Disposition: transferred to ICU Daughter updated at bedside regarding interval events and plan of care Cumulative time spent in the care of this patient (excluding any procedure time) : at least 50 minutes. Patient care included clinical interview (with patient and/or family), bedside exam of the patient, review of labs, x-rays, and other ancillary data, coordination of (respiratory, nursing care, review of patient's records, discussion regarding patients management with involved consultants, primary physician, pharmacists, and other healthcare personnel (dietary, case management , physical/occupational therapy etc.) Critical Care Time:
--- NOTE | 2019-02-20 13:09 | CONSULT ---
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 His A1c has risen from 6.6% to >14% and has likely been worsened by alcoholism and poor diet. In the setting of acute illness, his insulin requirement is approximately 20-30 units per day, see below. His hyponatremia is resolving and is likely due to combination of hyperglycemia and pulmonary SIADH. Note is made of bilateral adrenal nodules with low HU. Adrenal metastases remain in the differential diagnosis of primary malignancy is found. PLAN: - check beta-hydroxybutyrate daily (should be <1) - continue prophylaxis for alcohol withdrawal - increase Lantus to 20 units QAM - change Humalog sliding scale to Q6H dosing - when PO intake resumes, start Humalog 6 units with meals, in addition to sliding scale - nursing staff to teach fingersticks and insulin administration - plan to discharge home on: - Lantus/Basaglar 20 units QAM - glipizide XL 10mg QAM - metformin ER 750mg QHS - low-carbohydrate diet - follow-up with endocrinology for (1) diabetes and (2) adrenal nodules SUBJECTIVE: History of Present Illness: [obtained from daughter, Lary, and chart] 63 yo M with history of alcoholism and tobacco use disorders, now admitted for severe hyperglycemia and newly-recognized lung mass. He was recently found to have have diabetes with greatly elevated BG>200, A1c >10% and triglycerides >800. He was started on Janumet in October 2018, but glycemia continued to worsen rising A1c. He recently travelled to [place] and returned with worsening cough and sputum production, along with polydipsia and polyuria. There was suspicion for recurrent alcohol abuse during his trip. Upon arrival to ED, his Mt=539, glucose >600 and TRISH. Serum ketones were moderately elevated with borderline acidosis. Past Medical History: - HTN - DM2 since 2019 - alcohol use disorder -- beer, vodka, chau - tobacco use disorder -- >50 PY, 7 years abstinent, recently resumed smoking - COPD - chronic orthopedic pain disorder Medications Prior to Admission: Omeprazole CAP (NF) [Prilosec CAP*] 20 mg PO DAILY 02/18/13 [History Confirmed 02/18/19] Metoprolol Succinate XL TAB* [Toprol XL TAB*] 100 mg PO BID 05/28/18 [History Confirmed 02/18/19] Losartan/HCTZ 100/25 (NF) [Hyzaar 100/25 (NF)] 1 tab PO DAILY 02/18/19 [History Confirmed 02/18/19] Naloxone* [Narcan*] 0.4 mg ALT NARE DAILY PRN 02/18/19 [History Confirmed ] Nicotine PATCH 14 MG/24 HR* 14 mg TRANSDERM DAILY 02/18/19 [History Confirmed ] Rosuvastatin (NF) [Crestor] 20 mg PO DAILY 02/18/19 [History Confirmed 02/18/19] Sitaglip/Metform XR50/1000(NR) [Janumet Xr (NR)] 1 tab PO DAILY [History Confirmed 02/18/19] Tiotropium CAP.INH* [Spiriva CAP.INH*] 1 cap.inh INH DAILY 02/18/19 [History Confirmed 02/18/19] oxyCODONE TAB* [Roxycodone TAB 5 mg*] 5 - 10 mg PO Q8HR 02/18/19 [History Confirmed 02/18/19] oxyCODONE TAB* [Roxycodone TAB 5 mg*] 10 mg PO BEDTIME PRN 02/18/19 [History Confirmed 02/18/19] Inpatient Medications: Acetaminophen (Tylenol Tab*) 650 mg PO Q4H PRN PRN Reason: FEVER/PAIN Last Admin: 02/20/19 09:25 Dose: 650 mg Atorvastatin Calcium (Lipitor*) 40 mg PO DAILY [facility] Last Admin: 02/20/19 09:24 Dose: 40 mg Dextrose (D50w Syringe 50 Ml*) 12.5 gm IV PUSH .FOR FS < 60 - SS PRN PRN Reason: FS < 60 Enoxaparin Sodium (Lovenox(*)) 80 mg SUBCUT Q12H [facility] Last Admin: 02/20/19 13:46 Dose: 80 mg Folic Acid (Folvite Tab*) 1 mg PO DAILY [facility] Last Admin: 02/20/19 09:25 Dose: 1 mg Guaifenesin (Mucinex*) 600 mg PO BID [facility] Last Admin: 02/20/19 09:25 Dose: 600 mg Sodium Chloride (Ns 0.9% 1000 Ml) 1,000 mls @ 150 mls/hr IV PER RATE OLE Last Admin: 02/20/19 10:05 Dose: 150 mls/hr Azithromycin (Zithromax 500 Mg/250 Ml) 500 mg in 250 mls @ 250 mls/hr IVPB Q24H [facility] Last Admin: 02/19/19 15:17 Dose: 250 mls/hr Piperacillin Sod/Tazobactam (Sod 3.375 gm/ Sodium Chloride) 100 mls @ 25 mls/ hr IVPB Q8H [facility] Last Admin: 02/20/19 11:36 Dose: 25 mls/hr Dexmedetomidine HCl 1,000 mcg/ (Sodium Chloride) 250 mls @ 0 mls/hr IVPB Q12H [facility]; Protocol Last Admin: 02/20/19 13:30 Dose: 4.3 mls/hr Albumin Human (Albumin Human 25%*) 25 gm in 100 mls @ 50 mls/hr IV ONCE ONE Stop: 02/20/19 17:07 Insulin Glargine (Lantus(*)) 16 units SUBCUT Q24H [facility] Last Admin: 02/20/19 09:17 Dose: 16 unit Insulin Human Lispro (Humalog*) 0 units SUBCUT ACHS [facility]; Protocol Last Admin: 02/20/19 13:37 Dose: 3 units Lorazepam (Ativan Tab(*)) 0 - 6 mg PO .PER [facility] PROTOCOL [facility]; Protocol Last Admin: 02/20/19 07:48 Dose: 2 mg Metoprolol Tartrate (Lopressor Iv*) 5 mg IV Q6H [facility] Multivitamins/Minerals (Theragran/Minerals Tab*) 1 tab PO DAILY [facility] Last Admin: 02/20/19 09:25 Dose: 1 tab Nicotine (Nicotine Patch 14 Mg/24 Hr*) 1 patch TRANSDERM DAILY [facility] Last Admin: 02/20/19 09:09 Dose: Not Given Ondansetron HCl (Zofran Inj*) 4 mg IV Q4H PRN PRN Reason: NAUSEA/VOMITING Oxycodone HCl (Roxycodone Tab*) 10 mg PO BEDTIME PRN PRN Reason: PAIN Last Admin: 02/18/19 23:24 Dose: 5 mg Oxycodone HCl (Roxycodone Tab*) 10 mg PO Q8H PRN PRN Reason: PAIN - SEVERE Last Admin: 02/19/19 12:08 Dose: 10 mg Oxycodone HCl (Roxycodone Tab*) 5 mg PO Q4H PRN PRN Reason: PAIN - MODERATE Last Admin: 02/19/19 22:27 Dose: 5 mg Pantoprazole Sodium (Protonix Tab*) 40 mg PO DAILY [facility] Last Admin: 02/20/19 09:25 Dose: 40 mg Pharmacy Consult (Zosyn Per Pharmacy*) 1 note FOLLOW UP .ZOSYN PER PHARMACY [facility] Pharmacy Profile Note (Nicotine Patch Removal Note*) 1 note PATCH OFF 2100 [facility] Last Admin: 02/19/19 21:14 Dose: Not Given Thiamine HCl (Vitamin B-1 Tab*) 100 mg PO DAILY [facility] Last Admin: 02/20/19 09:25 Dose: 100 mg Tiotropium [place] (Spiriva Cap.Inh*) 1 cap INH DAILY [facility] Last Admin: 02/20/19 08:45 Dose: 1 cap Allergies/Intolerances: NKDA Social History: Lives with . Family History: Father with cancer, unknown type. Review of Systems: As above. Family reports 10 lb loss of weight, decreased energy for the past 3 to 4 weeks, RIGHT chest pain and arm pain since he returned from [place] with occasional cough with yellow sputum production. 10 system review is negative, per chart. OBJECTIVE: Temp Pulse Resp BP Pulse Ox 96.6 F 92 34 86/61 100 02/20/19 13:46 02/20/19 14:15 02/20/19 14:15 02/20/19 14:15 02/20/19 14:15 General: asleep, mild tachypnea ENT: neck supple, no thyromegaly, no bruit is heard Chest: B rhonchi, decreased breath sounds R CV: tachycardia, no murmur Abdomen: soft, non-tender Extremities: no edema, distal pulses intact Skin: warm, dry, no rash Neuro: grossly intact motor/sensory in extremities Labs: 02/18/19 21:00 444 12L 02/19/19 07:30 273 9L + 16G 02/19/19 11:30 233 6L 02/19/19 16:30 181 3L 02/19/19 21:00 159 3L 02/20/19 07:30 191 3L + 16G 02/20/19 11:30 189 3L WBC 12.2 10^3/uL (3.5-10.8) H 02/20/19 08:18 RBC 2.88 10^6 /uL (4.18-5.48) L 02/20/19 08:18 Hgb 9.1 g/dL (14.0-18.0) L 02/20/19 08:18 Hct 27 % (42-52) L 02/20/19 08:18 MCV 95 fL (80-94) H 02/20/19 08:18 MCH 32 pg (27-31) H 02/20/19 08:18 MCHC 33 g/dL (31-36) 02/20/19 08:18 RDW 13 % (10.5-15) 02/20/19 08:18 Plt Count 426 10^3/uL (150-450) 02/20/19 08:18 MPV 7.3 fL (7.4-10.4) L 02/20/19 08:18 Neut % (Auto) 86.1 % 02/20/19 08:18 Lymph % (Auto) 5.3 % 02/20/19 08:18 [place] % (Auto) 7.8 % 02/20/19 08:18 Eos % (Auto) 0.4 % 02/20/19 08:18 Baso % (Auto) 0.4 % 02/20/19 08:18 Absolute Neuts (auto) 10.5 10^3/ul (1.5-7.7) H 02/20/19 08:18 Absolute Lymphs (auto) 0.7 10^3/ul (1.0-4.8) L 02/20/19 08:18 Absolute Monos (auto) 1.0 10^3/ul (0-0.8) H 02/20/19 08:18 Absolute Eos (auto) 0 10^3/ul (0-0.6) 02/20/19 08:18 Absolute Basos (auto) 0.1 10^3/ul (0-0.2) 02/20/19 08:18 Absolute Nucleated RBC 0 10^3/ul 02/20/19 08:18 Nucleated RBC % 0 02/20/19 08:18 Patient Temperature Not Reportable 02/20/19 10:40 ABG pH 7.41 (7.35-7.45) 02/20/19 10:40 ABG pH (Temp Correct) Not Reportable 02/20/19 10:40 ABG pCO2 31 mmHg (35-45) L 02/20/19 10:40 ABG pCO2 (Temp Corrct Not Reportable 02/20/19 10:40 ABG pO2 71 mmHg (80-100) L 02/20/19 10:40 ABG pO2 (Temp Correct Not Reportable 02/20/19 10:40 ABG HCO3 21.7 mmol/L (19-31) 02/20/19 10:40 ABG O2 Saturation 97.0 % (94.0-98.0) 02/20/19 10:40 ABG Base Excess -4.0 mmol/L (-2.0-2.0) L 02/20/19 10:40 VBG pH 7.45 (7.32-7.43) H 02/18/19 15:26 VBG pCO2 38 mmHg (41-51) L 02/18/19 15:26 VBG pO2 47.0 mmHg (35-45) H 02/18/19 15:26 VBG HCO3 26.3 mmol/L (24-28) 02/18/19 15:26 VBG O2 Saturation 82.2 % (70-80) H 02/18/19 15:26 VBG Base Excess 2.4 mmol/L (0.0-4.0) 02/18/19 15:26 Respiration Rate Not Reportable 02/20/19 10:40 O2 Delivery Device 2lpm 02/20/19 10:40 Ventilator Type Not Reportable 02/20/19 10:40 Vent Mode Not Reportable 02/20/19 10:40 FiO2 Not Reportable 02/20/19 10:40 Inspiratory Time Not Reportable 02/20/19 10:40 PEEP Not Reportable 02/20/19 10:40 Pressure Support Not Reportable 02/20/19 10:40 Pressure Control Not Reportable 02/20/19 10:40 EPAP Not Reportable 02/20/19 10:40 IPAP Not Reportable 02/20/19 10:40 BiPAP Not Reportable 02/20/19 10:40 Sodium 131 mmol/L (135-145) L 02/20/19 06:05 Potassium 3.5 mmol/L (3.5-5.0) 02/20/19 06:05 Chloride 99 mmol/L (101-111) L 02/20/19 06:05 Carbon Dioxide 15 mmol/L (22-32) L 02/20/19 06:05 Anion Gap 17 mmol/L (2-11) H 02/20/19 06:05 BUN 11 mg/dL (6-24) 02/20/19 06:05 Creatinine 0.82 mg/dL (0.67-1.17) 02/20/19 06:05 Est GFR ( Amer) 115.6 (>60) 02/20/19 06:05 Est GFR (Non-Af Amer) 95.5 (>60) 02/20/19 06:05 BUN/Creatinine Ratio 13.4 (8-20) 02/20/19 06:05 Glucose 152 mg/dL (70-100) H 02/20/19 06:05 POC Glucose (mg/dL) 189 mg/dL (70-100) H 02/20/19 11:58 Hemoglobin A1c 14.9 % (4.0-5.6) H 02/18/19 19:18 Lactic Acid 1.1 mmol/L (0.5-2.0) 02/19/19 11:06 Calcium 7.4 mg/dL (8.6-10.3) L 02/20/19 06:05 Magnesium 1.6 mg/dL (1.9-2.7) L 02/20/19 06:05 Total Bilirubin 0.40 mg/dL (0.2-1.0) 02/20/19 06:05 AST 94 U/L (13-39) H 02/20/19 06:05 ALT 37 U/L (7-52) 02/20/19 06:05 Alkaline Phosphatase 155 U/L (34-104) H 02/20/19 06:05 Troponin I 0.02 ng/mL (<0.04) 02/18/19 14:09 Total Protein 5.5 g/dL (6.4-8.9) L 02/20/19 06:05 Albumin 2.3 g/dL (3.2-5.2) L 02/20/19 06:05 Globulin 3.2 g/dL (2-4) 02/20/19 06:05 Albumin/Globulin Ratio 0.7 (1-3) L 02/20/19 06:05 TSH 0.80 mcIU/mL (0.34-5.60) 02/19/19 06:22 Urine Color Yellow 02/19/19 16:40 Urine Appearance Cloudy 02/19/19 16:40 Urine pH 5.0 (5-9) 02/19/19 16:40 Ur Specific [place] 1.011 (1.010-1.030) 02/19/19 16:40 Urine Protein Negative (Negative) 02/19/19 16:40 Urine Ketones Trace (Negative) A 02/19/19 16:40 Urine Blood 1+ (Negative) A 02/19/19 16:40 Urine Nitrate Negative (Negative) 02/19/19 16:40 Urine Bilirubin Negative (Negative) 02/19/19 16:40 Urine Urobilinogen Negative (Negative) 02/19/19 16:40 Ur Leukocyte Esterase Negative (Negative) 02/19/19 16:40 Urine WBC (Auto) 1+(6-10/hpf) (Absent) A 02/19/19 16:40 Urine RBC (Auto) Trace(0-2/hpf) (Absent) 02/19/19 16:40 Ur Squamous Epith Cells Present (Absent) A 02/19/19 16:40 Urine Bacteria Absent (Absent) 02/19/19 16:40 Urine Glucose 2+(150 mg/dl) (Negative) A 02/19/19 16:40 B-Hydroxybutyrate 4.4 mmol/L (<0.4) H 02/18/19 14:09
[2019-02-20] MEDS: Dexmedetomidine* 1,000 MCG in NS 0.9% 250 ML* 240 ML IVPB SCH (13:30)
[2019-02-20] MEDS: Enoxaparin(*) 80 MG/0.8 ML SYR SUBCUT SCH (13:46)
[2019-02-20] MEDS ORDERED: Albumin Human 25%* 25 GM/100 ML BTL IV ONE (15:08)
[2019-02-20] MEDS: Azithromycin 500 mg/250 ml NS 500 MG/250 ML BAG IVPB SCH (16:58)
[2019-02-20] MEDS: Metoprolol Tartrate IV* 1 MG/ML 5 ML VIAL IV SCH ×2 (17:07→20:47)
[2019-02-20] MEDS: oxyCODONE TAB* 5 MG TAB PO PRN (19:34)
[2019-02-20] MEDS: Nicotine Patch Removal NOTE PATCH OFF SCH (22:45)
[2019-02-21] MEDS: Enoxaparin(*) 80 MG/0.8 ML SYR SUBCUT SCH ×2 (00:12→12:18)
[2019-02-21] MEDS: NS 0.9% 1000 ML** 1,000 ML IV SCH (00:14)
[2019-02-21] MEDS: Dexmedetomidine* 1,000 MCG in NS 0.9% 250 ML* 240 ML IVPB SCH ×2 (01:29→15:57)
[2019-02-21] MEDS: ZOSYN 3.375 GM Q8H per EXTENDED INFUSION IVPB SCH ×6 (01:30→17:46)
[2019-02-21] MEDS ORDERED: NS 0.9% 1000 ML** 1,000 ML IV SCH (01:36)
[2019-02-21] MEDS: Metoprolol Tartrate IV* 1 MG/ML 5 ML VIAL IV SCH ×3 (02:43→16:04)
[2019-02-21] MEDS ORDERED: Benzonatate CAP* 100 MG ONE (03:18)
[2019-02-21] MEDS: Benzonatate CAP* 100 MG PO PRN (03:19)
[2019-02-21] MEDS: oxyCODONE TAB* 5 MG TAB PO PRN ×3 (03:55→18:51)
[2019-02-21 04:31] LABS: Hematocrit 27 % (42-52); Hemoglobin 8.6 g/dL (14.0-18.0); Mean Corpuscular HGB Conc 32 g/dL (31-36); Mean Corpuscular Hemoglobin 31 pg (27-31); Mean Corpuscular Volume 95 fL (80-94); Mean Platelet Volume 7.9 fL (7.4-10.4); Platelet Count 432 10^3/uL (150-450); Red Blood Count 2.84 10^6 /uL (4.18-5.48); Red Cell Distribution Width 13 % (10.5-15); White Blood Count 12.4 10^3/uL (3.5-10.8)
[2019-02-21 04:41] LABS: Albumin 2.4 g/dL (3.2-5.2); Albumin/Globulin Ratio 0.8 (1-3); BUN/Creatinine Ratio 10.8 (8-20); Calcium 7.8 mg/dL (8.6-10.3); EGFR Non-African American 94.2 (>60); Globulin 3.1 g/dL (2-4); Magnesium 1.5 mg/dL (1.9-2.7); Phosphorus 3.2 mg/dL (2.5-5.0); Potassium 3.1 mmol/L (3.5-5.0); Total Bilirubin 0.4 mg/dL (0.2-1.0); Total Protein 5.5 g/dL (6.4-8.9)
[2019-02-21] MEDS ORDERED: Magnesium Sulfate 2 GM IV* 2 GM/50 ML BAG IVPB ONE (05:16)
[2019-02-21] MEDS: KCL 20 MEQ/100 ML IVPREMIX* 20 MEQ/100 ML BAG IV SCH ×2 (05:35→08:11)
[2019-02-21] MEDS ORDERED: NS 0.9% w/ 20 Meq KCL 1000 ML* 1,000 ML IV SCH (06:00)
[2019-02-21] MEDS: Insulin GLARGINE(*) 1 UNITS UNIT SUBCUT SCH (08:11)
[2019-02-21] MEDS: Pantoprazole TAB * 40 MG TAB PO SCH (08:12)
[2019-02-21] MEDS: Magnesium Oxide TAB* 400 MG PO SCH ×2 (08:12→20:22)
[2019-02-21] MEDS: Atorvastatin* 40 MG TAB PO SCH (08:12)
[2019-02-21] MEDS: guaiFENesin ER TAB 600 MG PO SCH ×2 (08:12→20:21)
[2019-02-21] MEDS: Thiamine TAB* 100 MG TAB PO SCH (08:12)
[2019-02-21] MEDS: Folic Acid TAB* 1 MG PO SCH (08:12)
[2019-02-21] MEDS: Nicotine PATCH 14 MG/24 HR* PATCH TRANSDERM SCH (08:14)
[2019-02-21] MEDS: Insulin LISPRO* 1 UNITS UNIT SUBCUT SCH ×4 (08:28→21:09)
[2019-02-21] MEDS: Tiotropium CAP.INH* CAP.INH/18 MCG (USE ORDER SET !) INH SCH (08:52)
--- NOTE | 2019-02-21 11:19 | PN ---
Date of Service: 02/21/19 - HD 4 Critical Care Services: 63 yo M with PMH including HTN, alcohol and tobacco abuse and prediabetes was seen at a regular appointment with PCP on 02/18 and found to have BG > 600. Sent to the ED for further evaluation. On arrival reports weakness and fatigue x 1 week and persistent dry cough for several weeks. On evaluation found to be hemodynamically stable. Physical exam unremarkable. WBC 16.0, BG 585, AG 15 and betahydroxybuterate 4.4. Bolused 2L NS, started on insulin gtt and admitted to the medical service. 02/19: Mild hypotension with SBP 90, HR 105. CT chest with large mass in RUL concerning for necrotizing pneumonia vs neoplasm. CT reviewed with Oncology ( Mani) and pulmonary (Akua) who feel presentation more consistent with necrotizing pneumonia. Started on broadspectrum abx. Lantus and SSI increased for persisent hyperglycemia. 02/20: Developed Afib with RVR, HR 150. Moved to telemetry and started on cardizem gtt. Scoring on W[facility] protocol. Developed hypoxia on nasal cannula and requiring escalating doses of cardizem gtt thus he was transferred to ICU. Vital Signs: Temp Pulse Resp BP SpO2 FiO2 100 F 116 18 101/71 97 45 02/21/19 08:00 02/21/19 10:00 02/21/19 10:00 02/21/19 10:00 02/21/19 10:00 02/21 08:00 Physical Exam: Gen: resting in bed HEENT: NC in place Lungs: expiratory wheezes over right lung field. coarse on left Cardiac: irregularly irregular Abdomen: soft, NTND Extremities: warm, dry Neuro: alert, oriented Fluid Balance (Past 24 Hours): I= O= Net Intake & Output 02/19/19 02/20/19 02/21/19 02/22/19 06:59 06:59 06:59 06:59 Intake Total 1300 7560 2949 150 Output Total 250 1460 0 Balance 1300 7310 1489 150 Weight 181 lb 3.2 oz 186 lb Intake: IV Fluids 1300 6360 2494 ABX - ZOSYN 100 200 NS (0.9%) 2445 2294 IVPB 320 133 ABX - ZOSYN 100 133 Medicated IV 72 CC - Dexmedetomidine/ 72 Precedex Oral 0 880 250 150 Output: Urine 250 1460 0 Other: Estimated Void Medium Date of Last Bowel 02/19/19 Movement # Bowel Movements 0 0 0 Estimated Stool Amount Small # Voids 0 Labs: Laboratory Results - last 24 hr 02/20/19 02/20/19 02/20/19 11:58 16:48 20:38 WBC RBC Hgb Hct MCV MCH MCHC RDW Plt Count MPV Sodium Potassium Chloride Carbon Dioxide Anion Gap BUN Creatinine Est GFR ( Amer) Est GFR (Non-Af Amer) BUN/Creatinine Ratio Glucose POC Glucose (mg/dL) 189 H 140 H 173 H Lactic Acid Calcium Phosphorus Magnesium Total Bilirubin AST ALT Alkaline Phosphatase B-Natriuretic Peptide Total Protein Albumin Globulin Albumin/Globulin Ratio 02/21/19 02/21/19 02/21/19 04:11 04:11 04:11 WBC 12.4 H RBC 2.84 L Hgb 8.6 L Hct 27 L MCV 95 H MCH 31 MCHC 32 RDW 13 Plt Count 432 MPV 7.9 Sodium 139 D Potassium 3.1 L Chloride 105 Carbon Dioxide 25 Anion Gap 9 BUN 9 Creatinine 0.83 Est GFR ( Amer) 114.0 Est GFR (Non-Af Amer) 94.2 BUN/Creatinine Ratio 10.8 Glucose 103 H POC Glucose (mg/dL) Lactic Acid Calcium 7.8 L Phosphorus 3.2 Magnesium 1.5 L Total Bilirubin 0.40 AST 86 H ALT 42 Alkaline Phosphatase 166 H B-Natriuretic Peptide 733 H Total Protein 5.5 L Albumin 2.4 L Globulin 3.1 Albumin/Globulin Ratio 0.8 L 02/21/19 04:11 WBC RBC Hgb Hct MCV MCH MCHC RDW Plt Count MPV Sodium Potassium Chloride Carbon Dioxide Anion Gap BUN Creatinine Est GFR ( Amer) Est GFR (Non-Af Amer) BUN/Creatinine Ratio Glucose POC Glucose (mg/dL) Lactic Acid 1.0 Calcium Phosphorus Magnesium Total Bilirubin AST ALT Alkaline Phosphatase B-Natriuretic Peptide Total Protein Albumin Globulin Albumin/Globulin Ratio Studies: 02/21 CXR - dense RUL infiltrate. increased vascular markings 02/18 CTA chest - no PE. large masslike right upper lobe infiltrate concerning for necrotizing pneumonia vs neoplasm. enlarged mediastinal and right hilar lymph nodes. hepatomegaly and steatosis. Nutrition: cardiac diet Impression: 63 yo M with necrotizing pneumonia of RUL and hyperglycemia, now with afib with RVR, hypotension and alcohol withdrawal delirium Plan: Cardiovascular: (1) Septic shock, resolved; (2) Atrial fibrillation with RVR -- HR 77-118 -- SBP 80-116 -- Telemetry -- Atorvastatin -- Metoprolol, switch to home oral dose with PRN IV for HR > 120 Home meds: Metoprolol, Losartan/HCTZ, Rosuvastatin Pulmonary: (1) Acute hypoxic respiratory failure, improving; (2) Necrotizing pneumonia of RUL: (3) Nicotine abuse -- RR 10-44 -- sats 91-100 on weaned from vapotherm to nasal cannula -- Guaifenesin -- Tessalon -- Spiriva -- Nicoderm patch Home meds: Spiriva, nicoderm patch Gastrointestinal: (1) elevated LFTs; (2) Steatosis of liver -- LFTs Tbili 0.4 ALK 166 from 155, follow trend AST 86 from 94, follow trend ALT 42 -- diet: carb control -- bowel regimen: None -- ulcer prophylaxis: Protonix -- PRN Zofran Home meds: Prilosec Endocrine: (1) Diabetes mellitus type 2 -- monitor BGs -- Lantus and SSI Home meds: Sitagliptin/Metformin Renal: (1) Hyponatremia, resolving; (2) Hypocalcemia; (3) Hypomagnesemia -- UOP: 61 ml/hr -- Cr 0.82 -- Lytes Na 139 from 131 from 128, follow trend K 3.1, replaced Ca 7.8, replace Mag 1.5, replaced -- Mag oxide Home meds: None Infectious disease: (1) Sepsis, improving; (2) Necrotizing pneumonia -- Tmax 100.0 -- WBC 12.4 from 12.2 -- Micro 5/1 Legionella Ag negative S.pneumo Ag negative Sputum in process blood in process UA negative -- ABX Azithromycin Zosyn Home meds: None Neurologic: (1) Acute alcohol withdrawal delirium; (2) Chronic pain syndrome -- PRN Tylenol -- Oxycodone, home dosing -- Precedex gtt for alcohol withdrawal -- [facility] protocol -- Folic acid, thiamine, MVI Home meds: Oxycodone, Narcan Hematological: (1) Anemia -- Hgb 8.6 from 9.1 -- Plt 432 from 426 -- DVT prophylaxis: therapeutic lovenox for afib Home meds: None Metabolic: (1) Metabolic acidosis -- lactic acid 1.0 Home meds: None Deep vein thrombosis prophylaxis: therapeutic lovenox Dietary: Protonix Condition: critical Prognosis: guarded Code status: full Disposition: continue ICU care and Daughter updated at bedside regarding interval events and plan of care Cumulative time spent in the care of this patient (excluding any procedure time) : at least 35 minutes. Patient care included clinical interview (with patient and/or family), bedside exam of the patient, review of labs, x-rays, and other ancillary data, coordination of (respiratory, nursing care, review of patient's records, discussion regarding patients management with involved consultants, primary physician, pharmacists, and other healthcare personnel (dietary, case management , physical/occupational therapy etc.) Critical Care Time: 35
[2019-02-21] MEDS: Azithromycin 500 mg/250 ml NS 500 MG/250 ML BAG IVPB SCH (15:16)
[2019-02-21] MEDS: Calcium Carbonate CHEW TAB* 500 MG (TUMS) PO SCH (20:21)
[2019-02-21] MEDS: Metoprolol Succinate XL TAB* 100 MG PO SCH (20:22)
[2019-02-21] MEDS: Acetaminophen TAB* 325 MG PO PRN (20:22)
[2019-02-21] MEDS: Nicotine Patch Removal NOTE PATCH OFF SCH (20:28)
[2019-02-22] MEDS: Enoxaparin(*) 80 MG/0.8 ML SYR SUBCUT SCH ×3 (00:42→23:30)
[2019-02-22] MEDS: ZOSYN 3.375 GM Q8H per EXTENDED INFUSION IVPB SCH ×6 (02:25→18:45)
[2019-02-22] MEDS: Benzonatate CAP* 100 MG PO PRN (02:25)
[2019-02-22] MEDS ORDERED: Albuterol/Ipratropium NEB.SOL* Albuterol 2.5 MG/Ipratropium 0.5 MG 3 ML ONE (04:15)
[2019-02-22] MEDS ORDERED: Albuterol/Ipratropium NEB.SOL* Albuterol 2.5 MG/Ipratropium 0.5 MG 3 ML INH PRN (04:15)
[2019-02-22] MEDS: Dexmedetomidine* 1,000 MCG in NS 0.9% 250 ML* 240 ML IVPB SCH ×2 (04:51→11:42)
[2019-02-22] MEDS ORDERED: Digoxin IV* 0.5 MG/2 ML AMP (0.25 MG/ML) IV SLOW PU ONE ×2 (05:16→16:21)
[2019-02-22] MEDS: guaiFENesin/CODIEN 100MG-10MG* 5 ML UDC PO PRN ×2 (05:35→16:48)
[2019-02-22 05:39] LABS: Hematocrit 31 % (42-52); Hemoglobin 9.9 g/dL (14.0-18.0); Mean Corpuscular HGB Conc 32 g/dL (31-36); Mean Corpuscular Hemoglobin 32 pg (27-31); Mean Corpuscular Volume 99 fL (80-94); Mean Platelet Volume 7.4 fL (7.4-10.4); Platelet Count 419 10^3/uL (150-450); Red Blood Count 3.14 10^6 /uL (4.18-5.48); Red Cell Distribution Width 14 % (10.5-15)
[2019-02-22 05:49] LABS: ALT 35 U/L (7-52); Albumin 2.5 g/dL (3.2-5.2); Albumin/Globulin Ratio 0.8 (1-3); Alkaline Phosphatase 183 U/L (34-104); BUN/Creatinine Ratio 10.1 (8-20); Blood Urea Nitrogen 8 mg/dL (6-24); CO2 Carbon Dioxide 21 mmol/L (22-32); Calcium 7.9 mg/dL (8.6-10.3); Chloride 104 mmol/L (101-111); EGFR African American 120.7 (>60); EGFR Non-African American 99.7 (>60); Globulin 3.2 g/dL (2-4); Glucose 77 mg/dL (70-100); Magnesium 1.7 mg/dL (1.9-2.7); Phosphorus 3.5 mg/dL (2.5-5.0); Sodium 137 mmol/L (135-145); Total Protein 5.7 g/dL (6.4-8.9)
[2019-02-22 05:54] LABS: Anion Gap 12 mmol/L (2-11)
[2019-02-22 06:33] LABS: Potassium Redraw 3.2 mmol/L (3.5-5.0)
[2019-02-22] MEDS: Atorvastatin* 40 MG TAB PO SCH (07:59)
[2019-02-22] MEDS: oxyCODONE TAB* 5 MG TAB PO PRN ×3 (07:59→20:59)
[2019-02-22] MEDS: Folic Acid TAB* 1 MG PO SCH (08:00)
[2019-02-22] MEDS: guaiFENesin ER TAB 600 MG PO SCH ×2 (08:00→20:52)
[2019-02-22] MEDS: Metoprolol Succinate XL TAB* 100 MG PO SCH ×2 (08:00→20:52)
[2019-02-22] MEDS: Pantoprazole TAB * 40 MG TAB PO SCH (08:00)
[2019-02-22] MEDS: Thiamine TAB* 100 MG TAB PO SCH (08:00)
[2019-02-22] MEDS: Calcium Carbonate CHEW TAB* 500 MG (TUMS) PO SCH ×2 (08:00→20:52)
[2019-02-22] MEDS: Magnesium Oxide TAB* 400 MG PO SCH ×2 (08:00→20:52)
[2019-02-22] MEDS: Insulin LISPRO* 1 UNITS UNIT SUBCUT SCH ×4 (08:06→20:53)
[2019-02-22] MEDS: Tiotropium CAP.INH* CAP.INH/18 MCG (USE ORDER SET !) INH SCH (08:09)
[2019-02-22] MEDS ORDERED: Levalbuterol 0.63MG/3ML NEB* UNIT OF USE INH PRN (08:51)
[2019-02-22] MEDS ORDERED: Ipratropium 0.5MG/2.5ML NEB* 0.5 MG/2.5 ML NEB.SOLN INH PRN (08:52)
[2019-02-22] MEDS ORDERED: Magnesium Sulfate 1 GM IV* 1 GM/100 ML BAG IV ONE (08:52)
[2019-02-22] MEDS: Insulin GLARGINE(*) 1 UNITS UNIT SUBCUT SCH (09:41)
[2019-02-22] MEDS: Polyethylene Glycol 3350* 17 GM PACKET PO SCH (09:41)
[2019-02-22] MEDS: Potassium Chlor TAB* 20 MEQ TAB.ER PO SCH ×2 (09:41→20:53)
[2019-02-22] MEDS: Nicotine PATCH 14 MG/24 HR* PATCH TRANSDERM SCH (09:42)
--- NOTE | 2019-02-22 09:58 | PN ---
Date of Service: 02/22/19 - 5 Critical Care Services: 63 yo M with PMH including HTN, alcohol and tobacco abuse and prediabetes was seen at a regular appointment with PCP on 02/18 and found to have BG > 600. Sent to the ED for further evaluation. On arrival reports weakness and fatigue x 1 week and persistent dry cough for several weeks. On evaluation found to be hemodynamically stable. Physical exam unremarkable. WBC 16.0, BG 585, AG 15 and betahydroxybuterate 4.4. Bolused 2L NS, started on insulin gtt and admitted to the medical service. 02/19: Mild hypotension with SBP 90, HR 105. CT chest with large mass in RUL concerning for necrotizing pneumonia vs neoplasm. CT reviewed with Oncology ( Mani) and pulmonary (Akua) who feel presentation more consistent with necrotizing pneumonia. Started on broadspectrum abx. Lantus and SSI increased for persisent hyperglycemia. 02/20: Developed Afib with RVR, HR 150. Moved to telemetry and started on cardizem gtt. Scoring on WAM protocol. Developed hypoxia on nasal cannula and requiring escalating doses of cardizem gtt thus he was transferred to ICU. 02/21: Weaned off vapotherm. Withdrawal symptoms well controlled on Precedex. Off cardizem gtt. Vital Signs: Temp Pulse Resp BP SpO2 FiO2 97.5 F 123 18 123/80 99 0 02/22/19 04:00 02/22/19 08:09 02/22/19 08:09 02/22/19 08:00 02/22/19 08:09 02/21 20:00 Physical Exam: Gen: resting in bed HEENT: NC in place Lungs: clear on left. expiratory wheeze over right upper lung field Cardiac: irregularly irregular, tachycardic Abdomen: soft, NTND Extremities: warm, dry, no edema Neuro: alert and oriented. Fluid Balance (Past 24 Hours): I= O= Net Intake & Output 02/20/19 02/21/19 02/22/19 02/23/19 06:59 06:59 06:59 06:59 Intake Total 7560 2949 2987.7 Output Total 250 1460 0 Balance 7310 1489 2987.7 Weight 186 lb 190 lb 11.198 oz Intake: IV Fluids 6360 2494 2034 ABX - ZOSYN 100 200 105 NS (0.9%) 2445 2294 1653 NS (0.9%) 20 meq KCL 276 IVPB 320 133 548 ABX - ZOSYN 100 133 93 NS with meds 455 Medicated IV 72 105.7 CC - Dexmedetomidine/ 72 105.7 Precedex Oral 880 250 300 Output: Urine 250 1460 0 Other: Estimated Void Medium Medium Date of Last Bowel 02/19/19 Movement # Bowel Movements 0 0 0 Estimated Stool Amount Small # Voids 0 2 Labs: Laboratory Results - last 24 hr 02/21/19 02/21/19 02/21/19 08:27 12:24 16:37 WBC RBC Hgb Hct MCV MCH MCHC RDW Plt Count MPV Sodium Potassium Chloride Carbon Dioxide Anion Gap BUN Creatinine Est GFR ( Amer) Est GFR (Non-Af Amer) BUN/Creatinine Ratio Glucose POC Glucose (mg/dL) 102 H 91 78 Calcium Phosphorus Magnesium Total Bilirubin AST ALT Alkaline Phosphatase Total Protein Albumin Globulin Albumin/Globulin Ratio 02/21/19 02/22/19 02/22/19 20:17 05:08 05:08 WBC 9.0 RBC 3.14 L Hgb 9.9 L Hct 31 L MCV 99 H MCH 32 H MCHC 32 RDW 14 Plt Count 419 MPV 7.4 Sodium 137 Potassium TNP Chloride 104 Carbon Dioxide 21 L Anion Gap 12 H BUN 8 Creatinine 0.79 Est GFR ( Amer) 120.7 Est GFR (Non-Af Amer) 99.7 BUN/Creatinine Ratio 10.1 Glucose 77 POC Glucose (mg/dL) 102 H Calcium 7.9 L Phosphorus 3.5 Magnesium 1.7 L Total Bilirubin 0.50 AST TNP ALT 35 Alkaline Phosphatase 183 H Total Protein 5.7 L Albumin 2.5 L Globulin 3.2 Albumin/Globulin Ratio 0.8 L 02/22/19 02/22/19 06:09 08:02 WBC RBC Hgb Hct MCV MCH MCHC RDW Plt Count MPV Sodium Potassium 3.2 L Chloride Carbon Dioxide Anion Gap BUN Creatinine Est GFR ( Amer) Est GFR (Non-Af Amer) BUN/Creatinine Ratio Glucose POC Glucose (mg/dL) 97 Calcium Phosphorus Magnesium Total Bilirubin AST 49 H ALT Alkaline Phosphatase Total Protein Albumin Globulin Albumin/Globulin Ratio Studies: 02/21 CXR - dense RUL infiltrate. increased vascular markings 02/18 CTA chest - no PE. large masslike right upper lobe infiltrate concerning for necrotizing pneumonia vs neoplasm. enlarged mediastinal and right hilar lymph nodes. hepatomegaly and steatosis. Nutrition: cardiac diet Impression: 63 yo M with necrotizing pneumonia of RUL and hyperglycemia, now with afib with RVR, hypotension and alcohol withdrawal delirium Plan: Cardiovascular: (1) Septic shock, resolved; (2) Atrial fibrillation with RVR -- HR 88-147 -- SBP 88-125 -- Telemetry -- Atorvastatin -- Metoprolol, switch to home oral dose with PRN IV for HR > 120 -- Digoxin x 1 overnight -- add amiodarone Home meds: Metoprolol, Losartan/HCTZ, Rosuvastatin Pulmonary: (1) Acute hypoxic respiratory failure, improving; (2) Necrotizing pneumonia of RUL: (3) Nicotine abuse -- RR 10-49 -- sats 9-100 on 8L NC, wean as able -- Guaifenesin -- Tessalon -- Spiriva, PRN Levalbuterol -- Nicoderm patch Home meds: Spiriva, nicoderm patch Gastrointestinal: (1) elevated LFTs; (2) Steatosis of liver -- LFTs Tbili 0.5 ALK 183 from 166, follow trend AST 49 from 86, follow trend ALT 35 -- diet: carb control -- bowel regimen: Miralax -- ulcer prophylaxis: Protonix -- PRN Zofran Home meds: Prilosec Endocrine: (1) Diabetes mellitus type 2 -- monitor BGs -- Lantus and SSI Home meds: Sitagliptin/Metformin Renal: (1) Hyponatremia, resolving; (2) Hypocalcemia; (3) Hypomagnesemia -- UOP: voiding -- Cr 0.82 -- Lytes Na 137 from 139 K 3.2, replaced Ca 7.9, on replacement Mag 1.7, replaced -- IVF: NS @ 50 ml/hr -- Mag oxide -- calcium carbonate Home meds: None Infectious disease: (1) Sepsis, improving; (2) Necrotizing pneumonia -- Tmax 100.0 -- WBC 9.0 from 12.4 -- Micro 5/2 MRSA scree negative 5/ Legionella Ag negative S.pneumo Ag negative Sputum Streptococcus Constellatus blood no growth to date UA negative -- ABX Azithromycin, discontinue as speciation now known and covered by Zosyn Zosyn Home meds: None Neurologic: (1) Acute alcohol withdrawal delirium; (2) Chronic pain syndrome -- PRN Tylenol -- Oxycodone, home dosing -- Precedex gtt for alcohol withdrawal, wean as able -- [facility] protocol -- Folic acid, thiamine, MVI Home meds: Oxycodone, Narcan Hematological: (1) Anemia -- Hgb 9.9 from 8.6 -- Plt 419 from 432 -- DVT prophylaxis: therapeutic lovenox for afib Home meds: None Metabolic: (1) Metabolic acidosis -- lactic acid 1.0 Home meds: None Deep vein thrombosis prophylaxis: therapeutic lovenox Dietary: Protonix Condition: critical Prognosis: guarded Code status: full Disposition: continue ICU care and Daughter updated at bedside regarding interval events and plan of care Cumulative time spent in the care of this patient (excluding any procedure time) : at least 35 minutes. Patient care included clinical interview (with patient and/or family), bedside exam of the patient, review of labs, x-rays, and other ancillary data, coordination of (respiratory, nursing care, review of patient's records, discussion regarding patients management with involved consultants, primary physician, pharmacists, and other healthcare personnel (dietary, case management , physical/occupational therapy etc.) Critical Care Time: 35
[2019-02-22] MEDS: Amiodarone TAB* 200 MG PO SCH (12:14)
[2019-02-22] MEDS: Acetaminophen TAB* 325 MG PO PRN (16:48)
[2019-02-22] MEDS: Nicotine Patch Removal NOTE PATCH OFF SCH (20:56)
[2019-02-23] MEDS: ZOSYN 3.375 GM Q8H per EXTENDED INFUSION IVPB SCH ×6 (02:01→18:37)
[2019-02-23] MEDS: oxyCODONE TAB* 5 MG TAB PO PRN ×5 (02:04→23:33)
[2019-02-23] MEDS: Dexmedetomidine* 1,000 MCG in NS 0.9% 250 ML* 240 ML IVPB SCH (02:11)
[2019-02-23] MEDS: guaiFENesin/CODIEN 100MG-10MG* 5 ML UDC PO PRN (04:32)
[2019-02-23 04:38] LABS: Hematocrit 26 % (42-52); Hemoglobin 8.8 g/dL (14.0-18.0); Mean Corpuscular HGB Conc 34 g/dL (31-36); Mean Corpuscular Hemoglobin 32 pg (27-31); Mean Corpuscular Volume 94 fL (80-94); Mean Platelet Volume 7.2 fL (7.4-10.4); Platelet Count 552 10^3/uL (150-450); Red Cell Distribution Width 13 % (10.5-15); White Blood Count 11.7 10^3/uL (3.5-10.8)
[2019-02-23 05:00] LABS: Albumin 2.2 g/dL (3.2-5.2); Albumin/Globulin Ratio 0.7 (1-3); BUN/Creatinine Ratio 8.9 (8-20); Calcium 7.8 mg/dL (8.6-10.3); EGFR African American 120.7 (>60); EGFR Non-African American 99.7 (>60); Globulin 3.2 g/dL (2-4); Magnesium 1.5 mg/dL (1.9-2.7); Phosphorus 3.4 mg/dL (2.5-5.0); Potassium 3.6 mmol/L (3.5-5.0); Total Bilirubin 0.4 mg/dL (0.2-1.0); Total Protein 5.4 g/dL (6.4-8.9)
[2019-02-23] MEDS: Insulin LISPRO* 1 UNITS UNIT SUBCUT SCH ×4 (08:00→21:38)
[2019-02-23] MEDS: Metoprolol Succinate XL TAB* 100 MG PO SCH ×2 (08:50→21:43)
[2019-02-23] MEDS: Thiamine TAB* 100 MG TAB PO SCH (08:53)
[2019-02-23] MEDS: Atorvastatin* 40 MG TAB PO SCH (08:53)
[2019-02-23] MEDS: Pantoprazole TAB * 40 MG TAB PO SCH (08:53)
[2019-02-23] MEDS: Amiodarone TAB* 200 MG PO SCH (08:53)
[2019-02-23] MEDS: Calcium Carbonate CHEW TAB* 500 MG (TUMS) PO SCH ×2 (08:53→21:43)
[2019-02-23] MEDS: Magnesium Oxide TAB* 400 MG PO SCH ×2 (08:53→21:43)
[2019-02-23] MEDS: guaiFENesin ER TAB 600 MG PO SCH (08:53)
[2019-02-23] MEDS: Nicotine PATCH 14 MG/24 HR* PATCH TRANSDERM SCH (08:54)
[2019-02-23] MEDS: Folic Acid TAB* 1 MG PO SCH (08:54)
[2019-02-23] MEDS: Polyethylene Glycol 3350* 17 GM PACKET PO SCH (08:55)
[2019-02-23] MEDS: Insulin GLARGINE(*) 1 UNITS UNIT SUBCUT SCH (09:50)
[2019-02-23] MEDS: Tiotropium CAP.INH* CAP.INH/18 MCG (USE ORDER SET !) INH SCH (09:53)
--- NOTE | 2019-02-23 10:40 | PN ---
Date of Service: 02/23/19 - TRANSFER SUMMARY Critical Care Services: 63 yo M with PMH including HTN, alcohol and tobacco abuse and prediabetes was seen at a regular appointment with PCP on 02/18 and found to have BG > 600. Sent to the ED for further evaluation. On arrival reports weakness and fatigue x 1 week and persistent dry cough for several weeks. On evaluation found to be hemodynamically stable. Physical exam unremarkable. WBC 16.0, BG 585, AG 15 and betahydroxybuterate 4.4. Bolused 2L NS, started on insulin gtt and admitted to the medical service. 02/19: Mild hypotension with SBP 90, HR 105. CT chest with large mass in RUL concerning for necrotizing pneumonia vs neoplasm. CT reviewed with Oncology ( Mani) and pulmonary (Akua) who feel presentation more consistent with necrotizing pneumonia. Started on broadspectrum abx. Lantus and SSI increased for persisent hyperglycemia. 02/20: Developed Afib with RVR, HR 150. Moved to telemetry and started on cardizem gtt. Scoring on WAM protocol. Developed hypoxia on nasal cannula and requiring escalating doses of cardizem gtt thus he was transferred to ICU. 02/21: Weaned off vapotherm. Withdrawal symptoms well controlled on Precedex. Off cardizem gtt. 02/23: Patient seen and evaluated at bedside. He denies any pain, fever, or current complains. No overnight events. Eating breakfast Vital Signs: Temp Pulse Resp BP SpO2 FiO2 98.7 F 97 14 124/86 94 0 02/23/19 08:00 02/23/19 10:00 02/23/19 10:02/23/19 10:02/23/19 10:02/22 16:00 on 2L NC Physical Exam: Gen:NAD, Sitting up in bed comfortably HEENT:NCAT, PERRL, neck supple, no thyromegaly Lungs:AEBL Cardiac: S1S2, RRR Abdomen:Soft, NTND, + normal bowel sounds Extremities:no edema, cyanosis Neuro:AAO x3, no focal neuro deficits Fluid Balance (Past 24 Hours): I= O= Net Intake & Output 02/21/19 02/22/19 02/23/19 02/24/19 06:59 06:59 06:59 06:59 Intake Total 2949 2987.7 2020.8 125 Output Total 1460 0 300 150 Balance 1489 2987.7 1720.8 -25 Weight 186 lb 190 lb 11.198 oz 191 lb 11.821 oz Intake: IV Fluids 2494 2034 828 ABX - ZOSYN 200 105 114 NS (0.9%) 2294 1653 450 NS (0.9%) 20 meq KCL 276 NS with meds 159 magnesium 105 IVPB 133 548 213 ABX - ZOSYN 133 93 213 NS with meds 455 Medicated IV 72 105.7 9.8 CC - Dexmedetomidine/ 72 105.7 9.8 Precedex Oral 250 300 970 125 Output: Urine 1460 0 300 150 Other: Estimated Void Medium Date of Last Bowel 02/23/19 Movement # Bowel Movements 0 0 2 Estimated Stool Amount Medium # Voids 2 4 ADLs: Meal Record Start: 02/18/19 17: 11 Freq: DAILY@0900,1400,1800 Status: Active Protocol: Created 02/18/19 17:11 System (Rec: 02/18/19 17:11 System [id number]) Document 02/19/19 09:00 [id number] (Rec: 02/19/19 09:43 [id number] MED-C09) Document 02/19/19 14:00 [id number] (Rec: 02/19/19 16:05 [id number] MED-C09) Document 02/19/19 18:00 [id number] (Rec: 02/19/19 20:31 [id number] MED-C02) Document 02/20/19 09:00 [id number] (Rec: 02/20/19 10:07 [id number] TELE-C03) Document 02/20/19 13:36 [id number] (Rec: 02/20/19 13:37 [id number] ICU-C07) Document 02/20/19 18:00 [id number] (Rec: 02/20/19 20:06 [id number] ICU-C06) Document 02/21/19 09:00 [id number] (Rec: 02/21/19 10:15 [id number] ICU-C06) Document 02/21/19 13:49 [id number] (Rec: 02/21/19 13:49 [id number] ICU-C06) Document 02/21/19 18:00 [id number] (Rec: 02/21/19 18:06 [id number] ICU-C06) Document 02/22/19 09:00 [id number] (Rec: 02/22/19 11:00 [id number] ICU-C06) Document 02/22/19 14:00 [id number] (Rec: 02/22/19 14:55 [id number] ICU-C06) Document 02/23/19 09:15 [id number] (Rec: 02/23/19 09:32 [id number] ICU-C06) ADLs: Meal Record Start: 02/20/19 18: 10 Freq: 09,13,18 Status: Inactive Protocol: Created 02/20/19 18:10 [id number] (Rec: 02/20/19 18:10 [id number] ICU-C06) Document 02/21/19 09:00 [id number] (Rec: 02/21/19 10:15 [id number] ICU-C06) Document 02/21/19 13:00 [id number] (Rec: 02/21/19 13:41 [id number] ICU-C06) Intake and Output Start: 02/18/19 12: 46 Freq: Q1HR Status: Active Protocol: Created 02/18/19 12:46 System (Rec: 02/18/19 12:46 System ED-C24) Document 02/21/19 16:42 [id number] (Rec: 02/21/19 16:42 [id number] ICU-C06) Document 02/22/19 12:00 [id number] (Rec: 02/22/19 12:08 [id number] ICU-C06) Document 02/23/19 06:35 [id number] (Rec: 02/23/19 06:35 [id number] ICU-C06) Document 02/23/19 06:55 [id number] (Rec: 02/23/19 06:55 [id number] ICU-C06) Document 02/23/19 08:15 [id number] (Rec: 02/23/19 08:31 [id number] ICU-C06) Intake and Output Start: 02/18/19 17: 11 Freq: DAILY@0600,1400,2200 Status: Complete Protocol: Created 02/18/19 17:11 System (Rec: 02/18/19 17:11 System [id number]) Document 02/18/19 22:00 [id number] (Rec: 02/18/19 23:58 [id number] MED-C11) Document 02/19/19 04:09 [id number] (Rec: 02/19/19 04:10 [id number] MED-C11) Document 02/19/19 13:48 [id number] (Rec: 02/19/19 13:49 [id number] MED-C11) Document 02/19/19 21:43 [id number] (Rec: 02/19/19 21:44 [id number] MED-C02) Document 02/20/19 06:00 [id number] (Rec: 02/20/19 06:14 [id number] TELE-C02) Document 02/20/19 21:43 [id number] (Rec: 02/20/19 21:43 [id number] ICU-C07) Intake and Output Start: 02/20/19 18: 10 Freq: Q1HR Status: Inactive Protocol: Created 02/20/19 18:10 [id number] (Rec: 02/20/19 18:10 [id number] ICU-C06) Document 02/20/19 20:59 [id number] (Rec: 02/20/19 20:59 [id number] ICU-C06) Document 02/20/19 22:00 [id number] (Rec: 02/20/19 22:47 [id number] ICU-C06) Document 02/21/19 02:43 [id number] (Rec: 02/21/19 02:43 [id number] ICU-M30) Document 02/21/19 03:22 [id number] (Rec: 02/21/19 03:33 [id number] ICU-C06) Document 02/21/19 08:00 [id number] (Rec: 02/21/19 08:55 [id number] ICU-C06) Document 02/21/19 09:00 [id number] (Rec: 02/21/19 10:15 [id number] ICU-C06) Document 02/21/19 10:00 [id number] (Rec: 02/21/19 10:16 [id number] ICU-C06) Document 02/21/19 11:00 [id number] (Rec: 02/21/19 11:54 [id number] ICU-C06) Document 02/21/19 11:54 [id number] (Rec: 02/21/19 12:08 [id number] ICU-C06) Labs: Laboratory Results - last 24 hr 02/22/19 02/22/19 02/22/19 11:14 16:29 20:41 WBC RBC Hgb Hct MCV MCH MCHC RDW Plt Count MPV Sodium Potassium Chloride Carbon Dioxide Anion Gap BUN Creatinine Est GFR ( Amer) Est GFR (Non-Af Amer) BUN/Creatinine Ratio Glucose POC Glucose (mg/dL) 158 H 89 121 H Calcium Phosphorus Magnesium Total Bilirubin AST ALT Alkaline Phosphatase Total Protein Albumin Globulin Albumin/Globulin Ratio 02/23/19 02/23/19 04:27 04:27 WBC 11.7 H RBC 2.80 L Hgb 8.8 L Hct 26 L MCV 94 MCH 32 H MCHC 34 RDW 13 Plt Count 552 H D MPV 7.2 L Sodium 137 Potassium 3.6 Chloride 103 Carbon Dioxide 24 Anion Gap 10 BUN 7 Creatinine 0.79 Est GFR ( Amer) 120.7 Est GFR (Non-Af Amer) 99.7 BUN/Creatinine Ratio 8.9 Glucose 79 POC Glucose (mg/dL) Calcium 7.8 L Phosphorus 3.4 Magnesium 1.5 L Total Bilirubin 0.40 AST 42 H ALT 31 Alkaline Phosphatase 209 H Total Protein 5.4 L Albumin 2.2 L Globulin 3.2 Albumin/Globulin Ratio 0.7 L Nutrition: Carb consistent diet Impression: 63 yo M with necrotizing pneumonia of RUL and hyperglycemia, being managed in the ICU for ETOH delirium complicated with shock, AF with RVR, overall improved Plan: Cardiovascular: (1) Septic shock, resolved; (2) Atrial fibrillation with RVR- now in NRS (3) HLD (4) HTN -- HR controlled with stable hemodynamics -- on amio daily, metoprolol -- Atorvastatin Home meds: Metoprolol, Losartan/HCTZ, Rosuvastatin Pulmonary: (1) Acute hypoxic respiratory failure, improving; (2) Necrotizing pneumonia of RUL: (3) Nicotine abuse -- Improving clinically. Now down to 2LPM/via NC -- Guaifenesin -- Tessalon -- Spiriva, PRN Levalbuterol -- Nicoderm patch Home meds: Spiriva, nicoderm patch Gastrointestinal: (1) elevated LFTs; (2) Steatosis of liver -- LFTs down-trending. No clinical s/sx suggestive of acute hepatobiliary pathology. -- diet: carb control -- bowel regimen: Miralax -- ulcer prophylaxis: Protonix -- PRN Zofran Home meds: Prilosec Endocrine: (1) Diabetes mellitus type 2 --due to hypoglycemia, will discontinue Glargine. Continue with SSI -- pending AM HGAIC Home meds: Sitagliptin/Metformin Renal: (1) Hyponatremia, resolved (2) Hypocalcemia- corrected to normal once accounted for hypoalbuminemia (3) Other electrolyte derrangements- Hypomagnesemia, hypokalemia- likely due to chronic ETOH +/- malnutrition --po KCL to maintain K+ >/=4 -- IV MgSO4 2 gm today -- UOP: voiding Home meds: None Infectious disease: (1) Sepsis, resolved (2) Necrotizing pneumonia, Cx + Step Constellatus --Recommend Zosyn x 14 days tx --needs a follow up CXR in 6 weeks post discharge to confirm resolution of PNA Home meds: None Neurologic: (1) Acute alcohol withdrawal delirium- Improved mental status (2) Chronic pain syndrome -- PRN Tylenol -- Oxycodone, home dosing -- [facility] protocol -- Folic acid, thiamine, MVI Home meds: Oxycodone, Narcan Hematological: (1) Anemia- stable H/H, no S/Sx suggestive of acute bleed -- DVT prophylaxis: therapeutic lovenox for afib. Will need to start on long- term anticoagulation prior to discharge Home meds: None Deep vein thrombosis prophylaxis: therapeutic lovenox Dietary: Protonix Condition: Stable Prognosis: fair Code status: full Disposition: transfer to today Daughter updated at bedside regarding interval events and plan of care Cumulative time spent in the care of this patient (excluding any procedure time) : at least 40 minutes. Patient care included clinical interview (with patient and/or family), bedside exam of the patient, review of labs, x-rays, and other ancillary data, coordination of (respiratory, nursing care, review of patient's records, discussion regarding patients management with involved consultants, primary physician, pharmacists, and other healthcare personnel (dietary, case management , physical/occupational therapy etc.)
[2019-02-23] MEDS ORDERED: Magnesium Sulfate 2 GM IV* 2 GM/50 ML BAG IVPB ONE (11:36)
[2019-02-23] MEDS: Enoxaparin(*) 80 MG/0.8 ML SYR SUBCUT SCH ×2 (12:54→23:34)
[2019-02-23] MEDS ORDERED: Potassium Chlor TAB* 20 MEQ TAB.ER PO ONE (13:17)
[2019-02-23] MEDS: Nicotine Patch Removal NOTE PATCH OFF SCH (21:45)
[2019-02-24] MEDS: ZOSYN 3.375 GM Q8H per EXTENDED INFUSION IVPB SCH ×6 (02:20→17:15)
[2019-02-24] MEDS: oxyCODONE TAB* 5 MG TAB PO PRN ×4 (04:37→17:15)
[2019-02-24 07:29] LABS: Hematocrit 27 % (42-52); Hemoglobin 8.9 g/dL (14.0-18.0); Mean Corpuscular HGB Conc 33 g/dL (31-36); Mean Corpuscular Hemoglobin 31 pg (27-31); Mean Corpuscular Volume 95 fL (80-94); Mean Platelet Volume 7.7 fL (7.4-10.4); Platelet Count 559 10^3/uL (150-450); Red Blood Count 2.89 10^6 /uL (4.18-5.48); Red Cell Distribution Width 13 % (10.5-15); White Blood Count 12.3 10^3/uL (3.5-10.8)
[2019-02-24 08:00] LABS: Albumin 2.4 g/dL (3.2-5.2); Albumin/Globulin Ratio 0.7 (1-3); EGFR African American 128.1 (>60); EGFR Non-African American 105.9 (>60); Globulin 3.6 g/dL (2-4); Magnesium 1.7 mg/dL (1.9-2.7); Phosphorus 3.3 mg/dL (2.5-5.0); Potassium 3.8 mmol/L (3.5-5.0); Total Bilirubin 0.4 mg/dL (0.2-1.0)
[2019-02-24] MEDS: Insulin LISPRO* 1 UNITS UNIT SUBCUT SCH ×4 (08:13→20:55)
[2019-02-24] MEDS: Metoprolol Succinate XL TAB* 100 MG PO SCH ×2 (08:16→20:56)
[2019-02-24] MEDS: Amiodarone TAB* 200 MG PO SCH (08:17)
[2019-02-24] MEDS: Thiamine TAB* 100 MG TAB PO SCH (08:17)
[2019-02-24] MEDS: Atorvastatin* 40 MG TAB PO SCH (08:17)
[2019-02-24] MEDS: Folic Acid TAB* 1 MG PO SCH (08:18)
[2019-02-24] MEDS: Pantoprazole TAB * 40 MG TAB PO SCH (08:18)
[2019-02-24] MEDS: Magnesium Oxide TAB* 400 MG PO SCH ×2 (08:19→20:55)
[2019-02-24] MEDS: Calcium Carbonate CHEW TAB* 500 MG (TUMS) PO SCH ×2 (08:19→20:56)
[2019-02-24] MEDS: Tiotropium CAP.INH* CAP.INH/18 MCG (USE ORDER SET !) INH SCH (08:22)
[2019-02-24] MEDS: Polyethylene Glycol 3350* 17 GM PACKET PO SCH (08:23)
[2019-02-24] MEDS: Nicotine PATCH 14 MG/24 HR* PATCH TRANSDERM SCH (08:23)
[2019-02-24] MEDS ORDERED: Magnesium Sulfate 2 GM IV* 2 GM/50 ML BAG IVPB ONE (09:18)
[2019-02-24] MEDS: Enoxaparin(*) 80 MG/0.8 ML SYR SUBCUT SCH (12:18)
--- NOTE | 2019-02-24 18:15 | PN ---
Subjective Date of Service: 02/24/19 Interval History: Patient sitting on bed on assessment. Denies shortness of breath stating "I have never really been short of breath". Reports frequent productive cough with clear to yellow sputum. Reports sputum was much more discolored previously. Denies cp, palpitations, fever, chills, nausea, vomiting. Objective Active Medications: Acetaminophen (Tylenol Tab*) 650 mg PO Q4H PRN PRN Reason: FEVER/PAIN Last Admin: 02/22/19 16:48 Dose: 650 mg Atorvastatin Calcium (Lipitor*) 40 mg PO DAILY [facility] Last Admin: 02/24/19 08:17 Dose: 40 mg Benzonatate (Tessalon Cap*) 100 mg PO BID PRN PRN Reason: COUGH Last Admin: 02/22/19 02:25 Dose: 100 mg Calcium Carbonate (Tums*) 500 mg PO BID [facility] Last Admin: 02/24/19 08:19 Dose: 500 mg Dextrose (D50w Syringe 50 Ml*) 12.5 gm IV PUSH .FOR FS < 60 - SS PRN PRN Reason: FS < 60 Enoxaparin Sodium (Lovenox(*)) 80 mg SUBCUT Q12H [facility] Last Admin: 02/24/19 12:18 Dose: 80 mg Folic Acid (Folvite Tab*) 1 mg PO DAILY [facility] Last Admin: 02/24/19 08:18 Dose: 1 mg Guaifenesin/Codeine Phosphate (Robitussin Ac 100mg-10mg*) 5 ml PO Q4H PRN PRN Reason: COUGH Last Admin: 02/23/19 04:32 Dose: 5 ml Piperacillin Sod/Tazobactam (Sod 3.375 gm/ Sodium Chloride) 100 mls @ 25 mls/ hr IVPB Q8H [facility] Stop: 03/05/19 13:00 Last Admin: 02/24/19 17:15 Dose: 25 mls/hr Insulin Human Lispro (Humalog*) 0 units SUBCUT ACHS [facility]; Protocol Last Admin: 02/24/19 17:15 Dose: 3 units Ipratropium [place] (Atrovent 0.5 Mg Neb.Mavis*) 0.5 mg INH Q4H PRN PRN Reason: SOB/WHEEZING Levalbuterol HCl (Xopenex 0.63mg/3ml Neb*) 0.63 mg INH Q4H PRN PRN Reason: SOB/WHEEZING Magnesium Oxide (Magox 400 Tab*) 400 mg PO BID [facility] Last Admin: 02/24/19 08:19 Dose: 400 mg Metoprolol Succinate (Toprol Xl Tab*) 100 mg PO BID [facility] Last Admin: 02/24/19 08:16 Dose: 100 mg Metoprolol Tartrate (Lopressor Iv*) 5 mg IV Q6H PRN PRN Reason: HEART RATE/PULSE Nicotine (Nicotine Patch 14 Mg/24 Hr*) 1 patch TRANSDERM DAILY [facility] Last Admin: 02/24/19 08:23 Dose: Not Given Ondansetron HCl (Zofran Inj*) 4 mg IV Q4H PRN PRN Reason: NAUSEA/VOMITING Oxycodone HCl (Roxycodone Tab*) 10 mg PO BEDTIME PRN PRN Reason: PAIN Last Admin: 02/18/19 23:24 Dose: 5 mg Oxycodone HCl (Roxycodone Tab*) 10 mg PO Q8H PRN PRN Reason: PAIN - SEVERE Last Admin: 02/24/19 17:15 Dose: 10 mg Oxycodone HCl (Roxycodone Tab*) 5 mg PO Q4H PRN PRN Reason: PAIN - MODERATE Last Admin: 02/24/19 12:18 Dose: 5 mg Pantoprazole Sodium (Protonix Tab*) 40 mg PO DAILY [facility] Last Admin: 02/24/19 08:18 Dose: 40 mg Pharmacy Consult (Zosyn Per Pharmacy*) 1 note FOLLOW UP .ZOSYN PER PHARMACY [facility] Pharmacy Profile Note (Nicotine Patch Removal Note*) 1 note PATCH OFF 2100 [facility] Last Admin: 02/23/19 21:45 Dose: Not Given Polyethylene Glycol/Electrolytes (Miralax*) 17 gm PO DAILY [facility] Last Admin: 02/24/19 08:23 Dose: Not Given Thiamine HCl (Vitamin B-1 Tab*) 100 mg PO DAILY [facility] Last Admin: 02/24/19 08:17 Dose: 100 mg Tiotropium [place] (Spiriva Cap.Inh*) 1 cap INH DAILY [facility] Last Admin: 02/24/19 08:22 Dose: 1 cap Vital Signs - 8 hr 02/24/19 02/24/19 02/24/19 10:54 11:44 12:18 Temperature 97.8 F Pulse Rate 80 Respiratory 18 16 18 Rate Blood Pressure 123/65 (mmHg) O2 Sat by Pulse 96 Oximetry 02/24/19 02/24/19 02/24/19 14:48 15:11 16:52 Temperature 97.8 F Pulse Rate 77 Respiratory 16 16 Rate Blood Pressure 130/81 (mmHg) O2 Sat by Pulse 95 93 Oximetry 02/24/19 17:15 Temperature Pulse Rate Respiratory 18 Rate Blood Pressure (mmHg) O2 Sat by Pulse Oximetry Oxygen Devices in Use Now: Nasal Cannula Appearance: Comfortable, NAD Eyes: No Scleral Icterus Ears/Nose/Mouth/Throat: Clear Oropharnyx, Mucous Membranes Moist Neck: NL Appearance and Movements; NL JVP Respiratory: Symmetrical Chest Expansion and Respiratory Effort, Clear to Auscultation Cardiovascular: NL Sounds; No Murmurs; No JVD, RRR, No Edema Abdominal: NL Sounds; No Tenderness; No Distention Lymphatic: No Cervical Adenopathy Extremities: No Edema Skin: No Rash or Ulcers Neurological: Alert and Oriented x 3 Nutrition: Taking PO's Result Diagrams: 02/24/19 06:58 02/24/19 06:58 Additional Lab and Data: Laboratory Results - last 24 hr 02/23/19 02/23/19 02/24/19 12:59 19:41 06:58 WBC 12.3 H RBC 2.89 L Hgb 8.9 L Hct 27 L MCV 95 H MCH 31 MCHC 33 RDW 13 Plt Count 559 H MPV 7.7 Sodium Potassium Chloride Carbon Dioxide Anion Gap BUN Creatinine Est GFR ( Amer) Est GFR (Non-Af Amer) BUN/Creatinine Ratio Glucose POC Glucose (mg/dL) 117 H 128 H Hemoglobin A1c Calcium Phosphorus Magnesium Total Bilirubin AST ALT Alkaline Phosphatase Total Protein Albumin Globulin Albumin/Globulin Ratio 02/24/19 02/24/19 02/24/19 06:58 06:58 07:55 WBC RBC Hgb Hct MCV MCH MCHC RDW Plt Count MPV Sodium 137 Potassium 3.8 Chloride 102 Carbon Dioxide 22 Anion Gap 13 H BUN 6 Creatinine 0.75 Est GFR ( Amer) 128.1 Est GFR (Non-Af Amer) 105.9 BUN/Creatinine Ratio 8.0 Glucose 146 H POC Glucose (mg/dL) 167 H Hemoglobin A1c 14.6 H Calcium 8.0 L Phosphorus 3.3 Magnesium 1.7 L Total Bilirubin 0.40 AST 24 ALT 24 Alkaline Phosphatase 176 H Total Protein 6.0 L Albumin 2.4 L Globulin 3.6 Albumin/Globulin Ratio 0.7 L 02/24/19 02/24/19 11:38 16:33 WBC RBC Hgb Hct MCV MCH MCHC RDW Plt Count MPV Sodium Potassium Chloride Carbon Dioxide Anion Gap BUN Creatinine Est GFR ( Amer) Est GFR (Non-Af Amer) BUN/Creatinine Ratio Glucose POC Glucose (mg/dL) 169 H 158 H Hemoglobin A1c Calcium Phosphorus Magnesium Total Bilirubin AST ALT Alkaline Phosphatase Total Protein Albumin Globulin Albumin/Globulin Ratio Microbiology and Other Data: Microbiology 02/19/19 15:36 Sputum Expectorated Gram Stain - Final 02/19/19 15:36 Sputum Expectorated Sputum Culture - Preliminary Streptococcus Constellatus YEAST Normal [place] 02/19/19 11:06 Blood Venous Aerobic Blood Culture - Final No Growth Day 5 02/19/19 11:06 Blood Venous Anaerobic Blood Culture - Final No Growth Day 5 02/20/19 17:53 Nasal Nasal Screen MRSA (PCR) - Final Mrsa Not Detected 02/19/19 16:40 Urine Urine Culture - Final 02/19/19 16:40 Urine Legionella Urinary Antigen - Final Negative Legionella Antigen 02/19/19 16:40 Urine Streptococcus pneumoniae Ag Screen - Final Negative S. pneumo Antigen Diagnostic Imaging: . EKG Data: Sinus on tele Assess/Plan/Problems-Billing Assessment: This is a 63 year old male with hx of COPD and ETOH use that presented to the ER after being sent by his PCP for evaluation of abnormal findings on screening chest CT. - Patient Problems (1) Acute respiratory failure Comment: - Secondary ot necrotizing pneumonia, sepsis and etoh withdrawal - Requried ICU admissoin and vapotherm. - Now on 1.5 to 2L - Ambulatory Os2 monitoring ordered. (2) Atrial fibrillation with rapid ventricular response Comment: - Afib with RVR in setting of acute etoh withdrawal and septic shock; initially on cardizem drip than transition to amiodorone on 02/22. NSR as of 02/23. Stop amiodorone and continue to monitor patient - Cont Metoprolol XL - Cont tele - No reported hx of PAF per family, but patient was on high dose BB at home (3) COPD (chronic obstructive pulmonary disease) Comment: - History of tobacco use - Continue home inhalers (4) Chronic pain Comment: - Continue home oxycodone regime (5) EtOH dependence Current Visit: Yes Status: Acute Code(s): F10.20 - ALCOHOL DEPENDENCE, UNCOMPLICATED SNOMED Code(s): 40627210 Comment: - Resolved. - Required ICU and precedex drip previously (6) Necrotizing pneumonia Comment: - Consults with Dr. Singleton and Dr. Fatima appreciated, less likely mass, continue to treat for pneumonia - Sputum cultures resulted and abx changed accordingly. Now on Zosym only. Awaiting susceptability. - Negative urine strep antigen, negative legionella - Follow blood cultures - Nebs PRN, mucinex BID, flutter valve - No immediate indication for biopsy at this time. If this does represent a mass with a post-obstructive pneumonia, will still need to treat with antibiotics now, then attempt bronchoscopy or US guided biopsy in the near future (7) Uncontrolled type 2 diabetes mellitus with hyperglycemia Comment: - A1c 14.9 - Hyperglycemic on admission. - Dr. Ring consulting - Initially on lantus, sliding scale, and AC insulin; but now only ss given hypoglycemic episodes (8) DVT prophylaxis Comment: - lovenox (9) Full code status Status and Disposition: Inpatient, acute/guarded, upgrade to ICU. Attending: Zainab Malin
[2019-02-24] MEDS: Nicotine Patch Removal NOTE PATCH OFF SCH (20:58)
[2019-02-25] MEDS: Enoxaparin(*) 80 MG/0.8 ML SYR SUBCUT SCH ×3 (00:26→15:12)
[2019-02-25] MEDS: ZOSYN 3.375 GM Q8H per EXTENDED INFUSION IVPB SCH ×6 (02:28→18:10)
[2019-02-25] MEDS: oxyCODONE TAB* 5 MG TAB PO PRN ×5 (02:29→23:31)
[2019-02-25 07:04] LABS: ABS Basophils 0.1 10^3/ul (0-0.2); ABS Eosinophils 0.3 10^3/ul (0-0.6); ABS Lymphocytes 1.2 10^3/ul (1.0-4.8); ABS Monocytes 0.9 10^3/ul (0-0.8); ABS Neutrophils 8.9 10^3/ul (1.5-7.7); Eosinophil % 2.8 %; Hematocrit 27 % (42-52); Hemoglobin 8.8 g/dL (14.0-18.0); Lymphocyte % 10.3 %; Mean Corpuscular HGB Conc 33 g/dL (31-36); Mean Corpuscular Hemoglobin 31 pg (27-31); Mean Corpuscular Volume 95 fL (80-94); Mean Platelet Volume 7.9 fL (7.4-10.4); Platelet Count 560 10^3/uL (150-450); Red Blood Count 2.82 10^6 /uL (4.18-5.48); Red Cell Distribution Width 13 % (10.5-15); White Blood Count 11.4 10^3/uL (3.5-10.8)
[2019-02-25 07:21] LABS: BUN/Creatinine Ratio 8.5 (8-20); EGFR African American 136.5 (>60); EGFR Non-African American 112.8 (>60); Magnesium 1.8 mg/dL (1.9-2.7); Potassium 3.7 mmol/L (3.5-5.0)
[2019-02-25] MEDS: Tiotropium CAP.INH* CAP.INH/18 MCG (USE ORDER SET !) INH SCH (08:15)
[2019-02-25] MEDS ORDERED: Potassium Chlor TAB* 20 MEQ TAB.ER PO ONE (08:50)
[2019-02-25] MEDS ORDERED: Magnesium Sulfate 2 GM IV* 2 GM/50 ML BAG IVPB ONE (08:50)
[2019-02-25] MEDS: Pantoprazole TAB * 40 MG TAB PO SCH (09:38)
[2019-02-25] MEDS: Metoprolol Succinate XL TAB* 100 MG PO SCH ×2 (09:38→21:38)
[2019-02-25] MEDS: Folic Acid TAB* 1 MG PO SCH (09:38)
[2019-02-25] MEDS: Thiamine TAB* 100 MG TAB PO SCH (09:41)
[2019-02-25] MEDS: Atorvastatin* 40 MG TAB PO SCH (09:41)
[2019-02-25] MEDS: Magnesium Oxide TAB* 400 MG PO SCH ×2 (09:42→21:38)
[2019-02-25] MEDS: Insulin LISPRO* 1 UNITS UNIT SUBCUT SCH ×4 (09:42→21:32)
[2019-02-25] MEDS: Calcium Carbonate CHEW TAB* 500 MG (TUMS) PO SCH ×2 (09:42→21:38)
[2019-02-25] MEDS: Polyethylene Glycol 3350* 17 GM PACKET PO SCH (10:22)
[2019-02-25] MEDS: Nicotine PATCH 14 MG/24 HR* PATCH TRANSDERM SCH (10:22)
[2019-02-25 14:59] LABS: C Reactive Protein 225.01 mg/L (<8.01)
[2019-02-25] MEDS ORDERED: PPD test dose* 5 TU/0.1 ML TEST (*USE PPD ORDER SET*) INTRADERM ONE (15:00)
--- NOTE | 2019-02-25 19:34 | PN ---
Subjective Date of Service: 02/25/19 Interval History: Patient sitting on edge of bed on assessment. Denies shortness of breath continuing to state he was never short of breath. Continues to have productive cough. Denies cp, palpitations, nausea, vomiting, fever, chills. Objective Active Medications: Acetaminophen (Tylenol Tab*) 650 mg PO Q4H PRN PRN Reason: FEVER/PAIN Last Admin: 02/22/19 16:48 Dose: 650 mg Atorvastatin Calcium (Lipitor*) 40 mg PO DAILY [facility] Last Admin: 02/25/19 09:41 Dose: 40 mg Benzonatate (Tessalon Cap*) 100 mg PO BID PRN PRN Reason: COUGH Last Admin: 02/22/19 02:25 Dose: 100 mg Calcium Carbonate (Tums*) 500 mg PO BID [facility] Last Admin: 02/25/19 09:42 Dose: 500 mg Dextrose (D50w Syringe 50 Ml*) 12.5 gm IV PUSH .FOR FS < 60 - SS PRN PRN Reason: FS < 60 Enoxaparin Sodium (Lovenox(*)) 80 mg SUBCUT Q12H [facility] Last Admin: 02/25/19 15:12 Dose: Not Given Folic Acid (Folvite Tab*) 1 mg PO DAILY [facility] Last Admin: 02/25/19 09:38 Dose: 1 mg Guaifenesin/Codeine Phosphate (Robitussin Ac 100mg-10mg*) 5 ml PO Q4H PRN PRN Reason: COUGH Last Admin: 02/23/19 04:32 Dose: 5 ml Piperacillin Sod/Tazobactam (Sod 3.375 gm/ Sodium Chloride) 100 mls @ 25 mls/ hr IVPB Q8H [facility] Stop: 03/05/19 13:00 Last Admin: 02/25/19 18:10 Dose: 25 mls/hr Insulin Human Lispro (Humalog*) 0 units SUBCUT ACHS [facility]; Protocol Last Admin: 02/25/19 17:39 Dose: 2 units Ipratropium [place] (Atrovent 0.5 Mg Neb.Mavis*) 0.5 mg INH Q4H PRN PRN Reason: SOB/WHEEZING Levalbuterol HCl (Xopenex 0.63mg/3ml Neb*) 0.63 mg INH Q4H PRN PRN Reason: SOB/WHEEZING Magnesium Oxide (Magox 400 Tab*) 400 mg PO BID [facility] Last Admin: 02/25/19 09:42 Dose: 400 mg Metoprolol Succinate (Toprol Xl Tab*) 100 mg PO BID [facility] Last Admin: 02/25/19 09:38 Dose: 100 mg Metoprolol Tartrate (Lopressor Iv*) 5 mg IV Q6H PRN PRN Reason: HEART RATE/PULSE Nicotine (Nicotine Patch 14 Mg/24 Hr*) 1 patch TRANSDERM DAILY [facility] Last Admin: 02/25/19 10:22 Dose: Not Given Ondansetron HCl (Zofran Inj*) 4 mg IV Q4H PRN PRN Reason: NAUSEA/VOMITING Oxycodone HCl (Roxycodone Tab*) 10 mg PO BEDTIME PRN PRN Reason: PAIN Last Admin: 02/18/19 23:24 Dose: 5 mg Oxycodone HCl (Roxycodone Tab*) 10 mg PO Q8H PRN PRN Reason: PAIN - SEVERE Last Admin: 02/24/19 17:15 Dose: 10 mg Oxycodone HCl (Roxycodone Tab*) 5 mg PO Q4H PRN PRN Reason: PAIN - MODERATE Last Admin: 02/25/19 15:10 Dose: 5 mg Pantoprazole Sodium (Protonix Tab*) 40 mg PO DAILY [facility] Last Admin: 02/25/19 09:38 Dose: 40 mg Pharmacy Consult (Zosyn Per Pharmacy*) 1 note FOLLOW UP .ZOSYN PER PHARMACY [facility] Pharmacy Profile Note (Nicotine Patch Removal Note*) 1 note PATCH OFF 2100 [facility] Last Admin: 02/24/19 20:58 Dose: Not Given Pharmacy Profile Note (Ppd Reading Note*) 1 note .SEE ORDER .PPD READING ONE Stop: 02/27/19 18:01 Polyethylene Glycol/Electrolytes (Miralax*) 17 gm PO DAILY [facility] Last Admin: 02/25/19 10:22 Dose: Not Given Thiamine HCl (Vitamin B-1 Tab*) 100 mg PO DAILY [facility] Last Admin: 02/25/19 09:41 Dose: 100 mg Tiotropium [place] (Spiriva Cap.Inh*) 1 cap INH DAILY [facility] Last Admin: 02/25/19 08:15 Dose: 1 cap Vital Signs - 8 hr 02/25/19 02/25/19 02/25/19 11:50 12:31 15:10 Temperature 97.5 F Pulse Rate 78 Respiratory 20 16 18 Rate Blood Pressure 140/80 (mmHg) O2 Sat by Pulse 96 Oximetry 02/25/19 17:39 Temperature Pulse Rate Respiratory 16 Rate Blood Pressure (mmHg) O2 Sat by Pulse Oximetry Oxygen Devices in Use Now: Nasal Cannula Appearance: Comfortable, NAD Eyes: No Scleral Icterus Ears/Nose/Mouth/Throat: Clear Oropharnyx, Mucous Membranes Moist Neck: NL Appearance and Movements; NL JVP Respiratory: Symmetrical Chest Expansion and Respiratory Effort, Clear to Auscultation Cardiovascular: NL Sounds; No Murmurs; No JVD, RRR, No Edema Abdominal: NL Sounds; No Tenderness; No Distention Lymphatic: No Cervical Adenopathy Extremities: No Edema Skin: No Rash or Ulcers Neurological: Alert and Oriented x 3 Nutrition: Taking PO's Result Diagrams: 02/25/19 05:43 02/25/19 05:43 Additional Lab and Data: Laboratory Results - last 24 hr 02/22/19 02/24/19 02/24/19 05:08 06:58 20:01 WBC RBC Hgb Hct MCV MCH MCHC RDW Plt Count MPV Neut % (Auto) Lymph % (Auto) [place] % (Auto) Eos % (Auto) Baso % (Auto) Absolute Neuts (auto) Absolute Lymphs (auto) Absolute Monos (auto) Absolute Eos (auto) Absolute Basos (auto) Absolute Nucleated RBC Nucleated RBC % Sodium 137 Potassium TNP Chloride 104 Carbon Dioxide 21 L Anion Gap 12 H BUN 8 Creatinine 0.79 Est GFR ( Amer) 120.7 Est GFR (Non-Af Amer) 99.7 BUN/Creatinine Ratio 10.1 Glucose 77 POC Glucose (mg/dL) 144 H Calcium 7.9 L Phosphorus 3.5 Magnesium 1.7 L Total Bilirubin 0.50 AST TNP ALT 35 Alkaline Phosphatase 183 H C-Reactive Protein 225.01 H Total Protein 5.7 L Albumin 2.5 L Globulin 3.2 Albumin/Globulin Ratio 0.8 L B-Hydroxybutyrate 3.1 H 02/25/19 02/25/19 02/25/19 05:43 05:43 07:13 WBC 11.4 H RBC 2.82 L Hgb 8.8 L Hct 27 L MCV 95 H MCH 31 MCHC 33 RDW 13 Plt Count 560 H MPV 7.9 Neut % (Auto) 78.1 Lymph % (Auto) 10.3 Gove % (Auto) 8.0 Eos % (Auto) 2.8 Baso % (Auto) 0.8 Absolute Neuts (auto) 8.9 H Absolute Lymphs (auto) 1.2 Absolute Monos (auto) 0.9 H Absolute Eos (auto) 0.3 Absolute Basos (auto) 0.1 Absolute Nucleated RBC 0.0 Nucleated RBC % 0.0 Sodium 137 Potassium 3.7 Chloride 102 Carbon Dioxide 24 Anion Gap 11 BUN 6 Creatinine 0.71 Est GFR ( Amer) 136.5 Est GFR (Non-Af Amer) 112.8 BUN/Creatinine Ratio 8.5 Glucose 123 H POC Glucose (mg/dL) 154 H Calcium 8.0 L Phosphorus Magnesium 1.8 L Total Bilirubin AST ALT Alkaline Phosphatase C-Reactive Protein Total Protein Albumin Globulin Albumin/Globulin Ratio B-Hydroxybutyrate 02/25/19 02/25/19 12:05 17:08 WBC RBC Hgb Hct MCV MCH MCHC RDW Plt Count MPV Neut % (Auto) Lymph % (Auto) [place] % (Auto) Eos % (Auto) Baso % (Auto) Absolute Neuts (auto) Absolute Lymphs (auto) Absolute Monos (auto) Absolute Eos (auto) Absolute Basos (auto) Absolute Nucleated RBC Nucleated RBC % Sodium Potassium Chloride Carbon Dioxide Anion Gap BUN Creatinine Est GFR ( Amer) Est GFR (Non-Af Amer) BUN/Creatinine Ratio Glucose POC Glucose (mg/dL) 151 H 142 H Calcium Phosphorus Magnesium Total Bilirubin AST ALT Alkaline Phosphatase C-Reactive Protein Total Protein Albumin Globulin Albumin/Globulin Ratio B-Hydroxybutyrate Microbiology and Other Data: Microbiology 02/19/19 15:36 Sputum Expectorated Gram Stain - Final 02/19/19 15:36 Sputum Expectorated Sputum Culture - Preliminary Streptococcus Constellatus YEAST Normal [place] 02/19/19 11:06 Blood Venous Aerobic Blood Culture - Final No Growth Day 5 02/19/19 11:06 Blood Venous Anaerobic Blood Culture - Final No Growth Day 5 02/20/19 17:53 Nasal Nasal Screen MRSA (PCR) - Final Mrsa Not Detected 02/19/19 16:40 Urine Urine Culture - Final 02/19/19 16:40 Urine Legionella Urinary Antigen - Final Negative Legionella Antigen 02/19/19 16:40 Urine Streptococcus pneumoniae Ag Screen - Final Negative S. pneumo Antigen Diagnostic Imaging: . EKG Data: Sinus on tele Assess/Plan/Problems-Billing Assessment: This is a 63 year old male with hx of COPD and ETOH use that presented to the ER after being sent by his PCP for evaluation of abnormal findings on screening chest CT. - Patient Problems (1) Lung mass Comment: - Treating for necrotizing pneumonia - PPD placed (02/25) today and will need to be read in 48 hr - No immediate indication for biopsy at this time. If this does represent a mass with a post-obstructive pneumonia, will still need to treat with antibiotics now, then attempt bronchoscopy or US guided biopsy in the near future (2) Anemia Comment: - Anemic and stable since admission. - [employer] consulted and noted that H&H was 14.4 and 42 in Oct 2018. - Stool, iron studies, b12, and folate ordered (3) Acute respiratory failure Comment: - Secondary to necrotizing pneumonia, sepsis and etoh withdrawal - Requried ICU admissoin and vapotherm. - Now on 1.5 to 2L - Ambulatory O2 obtained (4) Atrial fibrillation with rapid ventricular response Comment: - Afib with RVR in setting of acute etoh withdrawal and septic shock; initially on cardizem drip than transition to amiodorone on 02/22. NSR as of 02/23. Stop amiodorone and continue to monitor patient - Cont Metoprolol XL - Cont tele. Sinus on tele - No reported hx of PAF per family, but patient was on high dose BB at home - Currently on Lovenox. Will need anticoag such as Eliquis for 30 days given afib. Also outpatient follow up with cardiology (5) COPD (chronic obstructive pulmonary disease) Comment: - History of tobacco use - Continue home inhalers (6) Chronic pain Comment: - Continue home oxycodone regime (7) EtOH dependence Current Visit: Yes Status: Acute Code(s): F10.20 - ALCOHOL DEPENDENCE, UNCOMPLICATED SNOMED Code(s): 64012262 Comment: - Resolved. - Required ICU and precedex drip previously (8) Necrotizing pneumonia Comment: - Consults with Dr. Singleton and Dr. Fatima appreciated, less likely mass, continue to treat for pneumonia - Sputum cultures resulted and abx changed accordingly. Now on Zosyn only. ID consulting - Negative urine strep antigen, negative legionella - Follow blood cultures - Nebs PRN, mucinex BID, flutter valve (9) Uncontrolled type 2 diabetes mellitus with hyperglycemia Comment: - A1c 14.9 - Hyperglycemic on admission. - Dr. Ring consulting - Initially on lantus, sliding scale, and AC insulin; but now only ss given hypoglycemic episodes (10) DVT prophylaxis Comment: - lovenox (11) Full code status Status and Disposition: Inpatient, acute/guarded, upgrade to ICU. Attending: Zainab Malin
[2019-02-25 20:09] LABS: % Iron Saturation 13 % (15-55); Iron 17 ug/dL (50-212); Total Iron Binding Capacity 130 mcg/dL (250-450); Transferrin 93 mg/dL (203-362)
--- NOTE | 2019-02-25 20:39 | CONS ---
CONSULTATION REPORT: DATE OF CONSULT: 02/25/19 PRIMARY CARE PROVIDER: Patrice Velasco MD PROVIDER REQUESTING CONSULTATION: Nohemy Ham NP CONSULTING SERVICE: Infectious Disease. PROVIDER: Dr. Asad Cleary * (dictated by Lis Rosales NP) REASON FOR CONSULTATION: Pneumonia. IMPRESSION: 1. Abnormal chest CT. The differential diagnosis includes pneumonia, tuberculosis, or neoplasm. The patient states that he has not had recent weight loss and denies night sweats. He has had no previous TB testing. No family history of TB and no known exposure to TB. Sputum culture showing yeast and streptococcus constellatus. He has been afebrile with the exception of two episodes of 100.0 temperatures back on 02/21/19. Continues to have mild leukocytosis, but according to old records, he has a history of leukocytosis in the past and has been seen by Dr. Chavez for workup of this. The patient reports he initially was coughing up dark brown sputum and this is now yellow to clear. 2. Acute hypoxic respiratory failure. Supplemental oxygen requirements are improving. 3. Anemia. The patient denies any dark stools. His hemoglobin was around 14 earlier this year. 4. Chronic obstructive pulmonary disease. 5. Chronic pain. 6. Hypertension. PLAN/RECOMMENDATIONS: Recommend continuing Zosyn at this time. He will need followup imaging in about 6 weeks as an outpatient. I recommend placing a PPD to evaluate for tuberculosis. We are going to add CRP to the earliest labs available to evaluate what his CRP was near the time of admission. Recheck a CRP tomorrow. The patient may need to have a biopsy or bronchoscopy to further evaluate this area seen on CT imaging. Recommend further working up his anemia. HISTORY OF PRESENT ILLNESS: Mr. Vincent is a 63-year-old with past medical history significant for diabetes mellitus, type 2, who is on oral antiglycemics at home; hypertension; COPD; and chronic pain, who presented to the emergency room after having a low dose lung CT as an outpatient for routine screening due to his smoking history and was found to have abnormalities and was also noted to be hyperglycemic at his primary care provider's office. On presentation to the emergency room, the patient's glucose was 585. He was noted to be hyponatremic with a sodium of 118 and appeared dehydrated with a BUN of 29, creatinine of 1.31. Mr. Vincent reports having a cough for several months, coughing up yellow to dark brown phlegm around the time of his admission. He denies fevers, chills, although he does state he was having some intermittent fevers near the time of his admission. Denies fatigue. Reports shortness of breath when he is anxious. He has chronic joint pain due to old injuries. He denies rash, diarrhea, constipation, urinary symptoms such as urgency, frequency , dysuria. He returned from a fishing trip in [place] and had been back for about 5 weeks at the time of his presentation. During his hospitalization, he had significant alcohol withdrawal symptoms requiring Precedex and monitoring in the ICU. He continues to report a productive cough with yellow to clear sputum. Denies shortness of breath. He developed acute hypoxic respiratory failure and was requiring Vapotherm in ICU. He is requiring supplemental oxygen to maintain his oxygen saturations, he has been able to be weaned down to 1.5 L via nasal cannula. He was seen by Dr. Fatima with Pulmonology due to his abnormal outpatient low-dose lung CT results. Dr. Fatima felt that his CT chest findings were consistent with pneumonia. Given his recent travel, sick contacts, elevated white count, it was recommended that they manage his pneumonia and if he did not have improvement, repeat a chest x-ray and if that showed no interval improvement, then he would benefit from a bronchoscopy and biopsy. He was also seen in consultation by Dr. Ángel Singleton with Oncology. Dr. Singleton also felt that the area on the chest CT most likely represented a pneumonia, not a tumor or malignancy. PAST MEDICAL HISTORY: 1. Diabetes mellitus, type 2. 2. Hypertension. 3. COPD. 4. Umbilical hernia. 5. Chronic pain. PAST SURGICAL HISTORY: Status post right shoulder surgery. MEDICATIONS: Home medications: 1. Crestor 20 mg by mouth daily. 2. Losartan/HCTZ 100/25 one tablet by mouth daily. 3. Janumet XR one tablet by mouth daily. 4. Oxycodone 5 to 10 mg by mouth every 8 hours. 5. Oxycodone 10 mg by mouth at bedtime as needed for pain. 6. Omeprazole 20 mg by mouth daily. 7. Metoprolol succinate 100 mg by mouth daily. 8. Naloxone 0.4 mg alternating nares daily as needed. 9. Spiriva 1 capsule inhalation daily. 10. Nicotine patch 14 mg transdermal daily. Hospital meds: 1. Acetaminophen 650 mg by mouth every 4 hours as needed for fever or pain. 2. Atorvastatin 40 mg by mouth daily. 3. Tessalon 100 mg by mouth twice daily as needed for cough. 4. Calcium carbonate 500 mg by mouth twice daily. 5. Dextrose 12.5 g IV push for glucose less than 60 as needed. 6. Lovenox 80 mg subcutaneous every 12 hours. 7. Folic acid 1 mg by mouth daily. 8. Guaifenesin 5 mL by mouth every 4 hours as needed for cough. 9. Lisinopril sliding scale subcutaneous with meals and at bedtime. 10. Atrovent 0.5 mg inhalation every 4 hours as needed for shortness of breath or wheeze. 11. Levalbuterol 0.63 mg IV every 4 hours as needed for shortness of breath. 12. Magnesium oxide 400 mg by mouth twice daily. 13. Metoprolol succinate 100 mg by mouth twice daily. 14. Metoprolol tartrate 5 mg IV every 6 hours as needed. 15. Nicotine patch 14 mg transdermal daily. 16. Zofran 4 mg IV every 4 hours as needed for nausea. 17. Oxycodone 10 mg by mouth at bedtime as needed for pain. 18. Oxycodone 5 mg by mouth every 4 hours as needed for pain. 19. Oxycodone 10 mg by mouth every 8 hours as needed for pain. 20. Protonix 40 mg by mouth daily. 21. Zosyn 3.37 g IV every 8 hours. 22. MiraLAX 17 g by mouth daily. 23. Thiamine, vitamin B1 100 mg by mouth daily. 24. Spiriva 1 capsule inhalation daily. ALLERGIES: No known drug allergies. FAMILY HISTORY: Denies any family history of coronary artery disease, diabetes. Mother with a history of breast cancer. Father with a history of skin cancer. SOCIAL HISTORY: He reports drinking 3 to 4 shots of chau daily. He has a 25 - year smoking history with 1 pack a day. He reports currently occasionally smoking. He denies recreational drugs. REVIEW OF SYSTEMS: I performed a 10-point review of systems. All the pertinent positives and negatives are mentioned in the history of present illness. The remaining review of systems is negative. PHYSICAL EXAM: Vital Signs: Temperature 98.2, heart rate 80, respiratory rate 20, O2 sat 96% on 1.5 L via nasal cannula, blood pressure 143/80. General Appearance: The patient is alert, appears to be in no acute distress. Head: Normocephalic, atraumatic. ENT: Pupils are equal and reactive to light. Extraocular movements are intact. Mucous membranes are moist. Neck is supple. No lymphadenopathy noted. Neurological: Alert and oriented x4. Cranial nerves II through XII are grossly intact. Cardiovascular: Heart rate regular. No murmurs, rubs, or gallops heard. Respiratory: Lungs are clear to auscultation, bilateral. Abdomen: Bowel sounds present. Abdomen is soft, nontender, nondistended. Extremities: No lower extremity edema. Musculoskeletal: No clubbing or cyanosis noted. The patient exhibits good strength in all extremities. Psychological: Calm and cooperative. Skin: No rashes or abnormalities seen. DIAGNOSTIC STUDIES/LAB DATA: Sodium 137, potassium 3.7, chloride 102, CO2 24, BUN 6, creatinine 0.71, glucose 123. White blood cell count 11.4, hemoglobin 8.8, hematocrit 27, platelet count 560. Urinalysis on admission shows trace ketones, 1+ blood, 1+ wbc's, squamous epithelial cells present, 2+ glucose. Urine culture with no growth. Blood cultures with no growth to date. Thank you for asking us to see Mr. Vincent in consultation. TIME SPENT: Time for this consultation was approximately 40 minutes, greater than half of that was spent with the patient and discussing medications, past medical history, the events leading up to his arrival, performing a physical examination. The case has been reviewed with the attending, Dr. Cleary, who agrees with the plan of care. Reviewed by SILVIA LERMA 02/27/192011 [id number]/[facility] #: [id number] JAMEEL
[2019-02-25 20:54] LABS: Ferritin 714.2 ng/mL (24-336)
[2019-02-25 20:59] LABS: Folate 15.76 ng/mL (>3.99)
[2019-02-25] MEDS ORDERED: Apixaban* 5 MG TAB PO SCH (21:00)
[2019-02-25] MEDS: Nicotine Patch Removal NOTE PATCH OFF SCH (21:26)
[2019-02-26] MEDS: ZOSYN 3.375 GM Q8H per EXTENDED INFUSION IVPB SCH ×6 (03:10→17:12)
[2019-02-26] MEDS: oxyCODONE TAB* 5 MG TAB PO PRN ×4 (03:10→22:42)
[2019-02-26] MEDS: Enoxaparin(*) 80 MG/0.8 ML SYR SUBCUT SCH ×2 (03:15→17:13)
--- NOTE | 2019-02-26 03:56 | PN ---
Progress Note - Progress Note Date of Service: 02/26/19 Note: Patient back in rapid afib rate sustaining in 120's. Lopressor 5 mg IV x 1 ordered
[2019-02-26] MEDS: Metoprolol Tartrate IV* 1 MG/ML 5 ML VIAL IV PRN (04:04)
[2019-02-26] MEDS ORDERED: Diltiazem IV push/loading dose 5 MG/ML 5 ML vial (25 mg) IV SLOW PU ONE (04:29)
[2019-02-26] MEDS ORDERED: Diltiazem DRIP* 100 MG/100 ML ADDV.BAG IVPB SCH (05:00)
[2019-02-26] MEDS ORDERED: Diltiazem 125 mg in 125 mL NS (continuous infusion) IV SCH (05:00)
[2019-02-26 06:44] LABS: ABS Basophils 0.1 10^3/ul (0-0.2); ABS Eosinophils 0.3 10^3/ul (0-0.6); ABS Lymphocytes 1.1 10^3/ul (1.0-4.8); ABS Monocytes 0.9 10^3/ul (0-0.8); ABS Neutrophils 9.7 10^3/ul (1.5-7.7); Eosinophil % 2.3 %; Hematocrit 27 % (42-52); Lymphocyte % 9.4 %; Mean Corpuscular HGB Conc 33 g/dL (31-36); Mean Corpuscular Hemoglobin 31 pg (27-31); Mean Corpuscular Volume 94 fL (80-94); Mean Platelet Volume 7.1 fL (7.4-10.4); Platelet Count 636 10^3/uL (150-450); Red Blood Count 2.88 10^6 /uL (4.18-5.48); Red Cell Distribution Width 14 % (10.5-15); White Blood Count 12.2 10^3/uL (3.5-10.8)
[2019-02-26 07:03] LABS: BUN/Creatinine Ratio 7.7 (8-20); C Reactive Protein 118.37 mg/L (<8.01); Calcium 8.1 mg/dL (8.6-10.3); EGFR African American 151.1 (>60); EGFR Non-African American 124.9 (>60); Magnesium 1.7 mg/dL (1.9-2.7); Potassium 3.6 mmol/L (3.5-5.0)
[2019-02-26] MEDS: Atorvastatin* 40 MG TAB PO SCH (08:50)
[2019-02-26] MEDS: Thiamine TAB* 100 MG TAB PO SCH (08:50)
[2019-02-26] MEDS: Pantoprazole TAB * 40 MG TAB PO SCH (08:50)
[2019-02-26] MEDS: Insulin LISPRO* 1 UNITS UNIT SUBCUT SCH ×4 (08:50→21:24)
[2019-02-26] MEDS: Metoprolol Succinate XL TAB* 100 MG PO SCH ×2 (08:50→21:25)
[2019-02-26] MEDS: Calcium Carbonate CHEW TAB* 500 MG (TUMS) PO SCH ×2 (08:51→21:25)
[2019-02-26] MEDS: Folic Acid TAB* 1 MG PO SCH (08:51)
[2019-02-26] MEDS: Nicotine PATCH 14 MG/24 HR* PATCH TRANSDERM SCH (08:51)
[2019-02-26] MEDS: Magnesium Oxide TAB* 400 MG PO SCH ×2 (08:51→21:25)
[2019-02-26] MEDS: Polyethylene Glycol 3350* 17 GM PACKET PO SCH (08:51)
[2019-02-26] MEDS: Tiotropium CAP.INH* CAP.INH/18 MCG (USE ORDER SET !) INH SCH (09:37)
[2019-02-26] MEDS ORDERED: Magnesium Sulfate 2 GM IV* 2 GM/50 ML BAG IVPB ONE (10:29)
--- NOTE | 2019-02-26 10:41 | PN ---
Progress Note - Progress Note Date of Service: 02/26/19 SOAP: Subjective: CC: Abnormal chest CT - Lung mass vs pneumonia HPI: Mr. Vincent is a 63-year-old with past medical history significant for DM2, who is on oral antiglycemics at home; hypertension; COPD; and chronic pain, who presented to the emergency room after having a low dose lung CT with abnormalities and noted to be hyperglycemic at his primary care provider's office. Denies fever, chills, shortness of breath, N/V/D. Reports that he continues to have a cough with thick yellow sputum production. He reports mild right upper chest discomfort, states this has been present for about 5 weeks and is worse with a deep breath. He is frustrated that he probably can't go home today. Objective: Vital Signs - 8 hr 02/26/19 02/26/19 02/26/19 03:10 04:00 04:11 Temperature 98.7 F Pulse Rate 121 Respiratory 18 20 Rate Blood Pressure 130/60 123/62 (mmHg) O2 Sat by Pulse 97 Oximetry 02/26/19 02/26/19 02/26/19 07:43 08:51 09:38 Temperature Pulse Rate 100 Respiratory 18 14 Rate Blood Pressure 117/85 (mmHg) O2 Sat by Pulse 95 Oximetry Physical Exam: General: NAD, sitting up in bed Neurological: Alert and Oriented x 4 HEENT: No thrush, moist MM Cardiovascular: Heart rate irregular Respiratory: Lung sounds clear bilateral Abdominal: Bowel sounds present; ABD soft, non tender and non distended Skin: No rash Laboratory Last Values WBC 12.2 10^3/uL (3.5-10.8) H 02/26/19 06:24 RBC 2.88 10^6 /uL (4.18-5.48) L 02/26/19 06:24 Hgb 9.0 g/dL (14.0-18.0) L 02/26/19 06:24 Hct 27 % (42-52) L 02/26/19 06:24 MCV 94 fL (80-94) 02/26/19 06:24 MCH 31 pg (27-31) 02/26/19 06:24 MCHC 33 g/dL (31-36) 02/26/19 06:24 RDW 14 % (10.5-15) 02/26/19 06:24 Plt Count 636 10^3/uL (150-450) H D 02/26/19 06:24 MPV 7.1 fL (7.4-10.4) L 02/26/19 06:24 Neut % (Auto) 79.7 % 02/26/19 06:24 Lymph % (Auto) 9.4 % 02/26/19 06:24 Howell % (Auto) 7.4 % 02/26/19 06:24 Eos % (Auto) 2.3 % 02/26/19 06:24 Baso % (Auto) 1.2 % 02/26/19 06:24 Absolute Neuts (auto) 9.7 10^3/ul (1.5-7.7) H 02/26/19 06:24 Absolute Lymphs (auto) 1.1 10^3/ul (1.0-4.8) 02/26/19 06:24 Absolute Monos (auto) 0.9 10^3/ul (0-0.8) H 02/26/19 06:24 Absolute Eos (auto) 0.3 10^3/ul (0-0.6) 02/26/19 06:24 Absolute Basos (auto) 0.1 10^3/ul (0-0.2) 02/26/19 06:24 Absolute Nucleated RBC 0.0 10^3/ul 02/26/19 06:24 Nucleated RBC % 0.0 02/26/19 06:24 Patient Temperature Not Reportable 02/20/19 10:40 ABG pH 7.41 (7.35-7.45) 02/20/19 10:40 ABG pH (Temp Correct) Not Reportable 02/20/19 10:40 ABG pCO2 31 mmHg (35-45) L 02/20/19 10:40 ABG pCO2 (Temp Corrct Not Reportable 02/20/19 10:40 ABG pO2 71 mmHg (80-100) L 02/20/19 10:40 ABG pO2 (Temp Correct Not Reportable 02/20/19 10:40 ABG HCO3 21.7 mmol/L (19-31) 02/20/19 10:40 ABG O2 Saturation 97.0 % (94.0-98.0) 02/20/19 10:40 ABG Base Excess -4.0 mmol/L (-2.0-2.0) L 02/20/19 10:40 VBG pH 7.45 (7.32-7.43) H 02/18/19 15:26 VBG pCO2 38 mmHg (41-51) L 02/18/19 15: VBG pO2 47.0 mmHg (35-45) H 02/18/19 15: VBG HCO3 26.3 mmol/L (24-28) 02/18/19 15: VBG O2 Saturation 82.2 % (70-80) H 02/18/19 15: VBG Base Excess 2.4 mmol/L (0.0-4.0) 02/18/19 15:26 Respiration Rate Not Reportable 02/20/19 10:40 O2 Delivery Device 2lpm 02/20/19 10:40 Ventilator Type Not Reportable 02/20/19 10:40 Vent Mode Not Reportable 02/20/19 10:40 FiO2 Not Reportable 02/20/19 10:40 Inspiratory Time Not Reportable 02/20/19 10:40 PEEP Not Reportable 02/20/19 10:40 Pressure Support Not Reportable 02/20/19 10:40 Pressure Control Not Reportable 02/20/19 10:40 EPAP Not Reportable 02/20/19 10:40 IPAP Not Reportable 02/20/19 10:40 BiPAP Not Reportable 02/20/19 10:40 Sodium 139 mmol/L (135-145) 02/26/19 06:25 Potassium 3.6 mmol/L (3.5-5.0) 02/26/19 06:25 Chloride 102 mmol/L (101-111) 02/26/19 06:25 Carbon Dioxide 23 mmol/L (22-32) 02/26/19 06:25 Anion Gap 14 mmol/L (2-11) H 02/26/19 06:25 BUN 5 mg/dL (6-24) L 02/26/19 06:25 Creatinine 0.65 mg/dL (0.67-1.17) L 02/26/19 06:25 Est GFR ( Amer) 151.1 (>60) 02/26/19 06:25 Est GFR (Non-Af Amer) 124.9 (>60) 02/26/19 06:25 BUN/Creatinine Ratio 7.7 (8-20) L 02/26/19 06:25 Glucose 140 mg/dL (70-100) H 02/26/19 06:25 POC Glucose (mg/dL) 160 mg/dL (70-100) H 02/26/19 07:15 Hemoglobin A1c 14.6 % (4.0-5.6) H 02/24/19 06:58 Lactic Acid 1.0 mmol/L (0.5-2.0) 02/21/19 04:11 Calcium 8.1 mg/dL (8.6-10.3) L 02/26/19 06:25 Phosphorus 3.3 mg/dL (2.5-5.0) 02/24/19 06:58 Magnesium 1.7 mg/dL (1.9-2.7) L 02/26/19 06:25 Iron 17 ug/dL (50-212) L 02/25/19 19:39 TIBC 130 mcg/dL (250-450) L 02/25/19 19:39 % Saturation 13 % (15-55) L 02/25/19 19:39 Unsat Iron Binding < 115 ug/dL 02/25/19 19:39 Transferrin 93 mg/dL (203-362) L 02/25/19 19:39 Ferritin 714.2 ng/mL (24-336) H 02/25/19 19:39 Total Bilirubin 0.40 mg/dL (0.2-1.0) 02/24/19 06:58 AST 24 U/L (13-39) 02/24/19 06:58 ALT 24 U/L (7-52) 02/24/19 06:58 Alkaline Phosphatase 176 U/L (34-104) H 02/24/19 06:58 Troponin I 0.02 ng/mL (<0.04) 02/18/19 14:09 C-Reactive Protein 118.37 mg/L (<8.01) H 02/26/19 06:25 B-Natriuretic Peptide 733 pg/mL (<=100) H 02/21/19 04:11 Total Protein 6.0 g/dL (6.4-8.9) L 02/24/19 06:58 Albumin 2.4 g/dL (3.2-5.2) L 02/24/19 06:58 Globulin 3.6 g/dL (2-4) 02/24/19 06:58 Albumin/Globulin Ratio 0.7 (1-3) L 02/24/19 06:58 Vitamin B12 622 pg/mL (180-914) 02/25/19 19:39 Folate 15.76 ng/mL (>3.99) 02/25/19 19:39 TSH 0.80 mcIU/mL (0.34-5.60) 02/19/19 06:22 Urine Color Yellow 02/19/19 16:40 Urine Appearance Cloudy 02/19/19 16:40 Urine pH 5.0 (5-9) 02/19/19 16:40 Ur Specific [place] 1.011 (1.010-1.030) 02/19/19 16:40 Urine Protein Negative (Negative) 02/19/19 16:40 Urine Ketones Trace (Negative) A 02/19/19 16:40 Urine Blood 1+ (Negative) A 02/19/19 16:40 Urine Nitrate Negative (Negative) 02/19/19 16:40 Urine Bilirubin Negative (Negative) 02/19/19 16:40 Urine Urobilinogen Negative (Negative) 02/19/19 16:40 Ur Leukocyte Esterase Negative (Negative) 02/19/19 16:40 Urine WBC (Auto) 1+(6-10/hpf) (Absent) A 02/19/19 16:40 Urine RBC (Auto) Trace(0-2/hpf) (Absent) 02/19/19 16:40 Ur Squamous Epith Cells Present (Absent) A 02/19/19 16:40 Urine Bacteria Absent (Absent) 02/19/19 16:40 Urine Glucose 2+(150 mg/dl) (Negative) A 02/19/19 16:40 B-Hydroxybutyrate 3.1 mmol/L (<0.4) H 02/24/19 06:58 Microbiology 02/19/19 15:36 Gram Stain - Final Sputum Expectorated Sputum Culture - Final Streptococcus Constellatus YEAST Normal [place] 02/19/19 11:06 Aerobic Blood Culture - Final Blood Venous No Growth Day 5 Anaerobic Blood Culture - Final No Growth Day 5 02/20/19 17:53 Nasal Screen MRSA (PCR) - Final Nasal Mrsa Not Detected 02/19/19 16:40 Urine Culture - Final Urine 02/19/19 16:40 Legionella Urinary Antigen - Final Urine Negative Legionella Antigen Streptococcus pneumoniae Ag Screen - Final Negative S. pneumo Antigen Assessment: 1. Abnormal chest CT. The differential includes pneumonia vs tuberculosis vs neoplasm. Sputum culture showing yeast and streptococcus constellatus. The patient denies recent weight loss or night sweats. PPD was placed yesterday, will be read on 02/27/19. Afebrile and continues to have mild leukocytosis ( according to old records, he has a history of leukocytosis in the past and has been seen by Dr. Chavez for workup of this). Continues to have a productive cough with yellow sputum. 2. Anemia. Labs show anemia of chronic disease. 3. Atrial Fibrillation. 4. COPD. 5. Chronic pain. 6. Hypertension. Plan: Continue Zosyn at this time. Plan to discharge on Levaquin to complete a total of 3 weeks of ABX. He will need followup imaging in about 6 weeks as an outpatient. PPD will need to be checked tomorrow. The patient may need to have a biopsy or bronchoscopy to further evaluate this area seen on CT imaging. He can followup with ID outpatient in 1-2 weeks.
[2019-02-26] MEDS ORDERED: Diltiazem TAB* 60 MG PO SCH ×2 (14:00→14:12)
[2019-02-26] MEDS ORDERED: Potassium Chlor TAB* 20 MEQ TAB.ER PO ONE (14:15)
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
--- NOTE | 2019-02-26 16:08 | ECHO ---
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 *Referring Physician: * Lianne Dove *Reading Physician: Geovanny Bautista MD Indications: Atrial Fibrillation. History: ETOH. Chronic obstructive pulmonary disease. Risk factors: Current tobacco use. Hypertension. Diabetes mellitus. Conclusions Summary: 1. Impressions: No previous study was available for comparison. 2. Left ventricle: Systolic function is normal. The estimated ejection fraction is 55-60%. Wall motion is normal; there are no regional wall motion abnormalities. 3. Right ventricle: The cavity size is mildly dilated. Wall thickness is mildly increased. Study data: Transthoracic echocardiogram. Procedure: Transthoracic echocardiography was performed. Image quality was fair. The study was technically limited due to COPD. Complete 2D, spectral Doppler, and color flow Doppler. Location: Bedside. Patient status: Inpatient. Patient room number: 452. Rhythm: Normal sinus rhythm. Findings Left ventricle: The cavity size is normal. Wall thickness is normal. Systolic function is normal. The estimated ejection fraction is 55-60%. Wall motion is normal; there are no regional wall motion abnormalities. There is no consistent Doppler evidence of clinically significant diastolic dysfunction. Right ventricle: The cavity size is mildly dilated. Wall thickness is mildly increased. Systolic function is low normal. Left atrium: The atrium is mildly dilated. Right atrium: The atrium is mildly dilated. Mitral valve: The leaflets are normal thickness. There is no evidence of stenosis. There is no significant regurgitation. The peak diastolic gradient is 2.3 mm Hg. Aortic valve: The leaflets are normal thickness. There is no evidence of stenosis. There is no significant regurgitation. The ratio of LVOT to aortic valve peak velocity is 0.73. The ratio of LVOT to aortic valve mean velocity is 0.77. The mean systolic gradient is 3.0 mm Hg. The peak systolic gradient is 7.0 mm Hg. Tricuspid valve: The leaflets are normal thickness. There is no evidence of stenosis. There is trivial regurgitation. Pulmonic valve: Not well visualized. The peak systolic gradient is 2.0 mm Hg. Aorta: Aortic root: The aortic root is mildly dilated. Ascending aorta: The ascending aorta is well visualized. Aortic arch: The aortic arch is appears normal. Pericardium: There is no significant pericardial effusion. Pulmonary arteries: Not well visualized. Systemic veins: Inferior vena cava: The vessel is normal in size. The respirophasic diameter changes are in the normal range (>= 50%). Measurements Left ventricle Value Ref Aortic valve Value Ref DEUCE, LAX 5.0 cm 4.2 - 5.8 Sharon diam, ED 2.1 cm ---- ESD, LAX 2.9 cm 2.5 - 4.0 Peak v, S 1.28 m/sec ---- FS, LAX 42 % 25 - 43 VTI, S 23.5 cm ---- PW, ED, LAX 0.8 cm 0.6 - 1.0 Mean grad, S 3.0 mm Hg ---- EF (H) 73 % 52 - 72 Peak grad, S 7.0 mm Hg ---- E', lat sharon, TDI 11.4 cm/sec >=10.0 E/e', lat sharon, 7 Mitral valve Value Ref TDI Peak E 0.76 m/sec ---- E', med sharon, TDI 9.8 cm/sec >=7.0 Peak A 0.48 m/sec ---- E/e', med sharon, 8 Decel time 211 ms ---- TDI Peak grad, D 2.3 mm Hg ---- E', avg, TDI 10.6 cm/sec Peak E/A ratio 1.6 ---- E/e', avg, TDI 7 <=14 Pulmonic valve Value Ref LVOT Value Ref Peak v, S 0.71 m/sec ---- Peak cory, S 0.93 m/sec Peak grad, S 2.0 mm Hg ---- Mean grad, S 2 mm Hg Aortic root Value Ref Ventricular septum Value Ref Root diam 3.7 cm <4.2 IVS, ED, LAX 0.7 cm 0.6 - 1.0 Aortic arch Value Ref Right ventricle Value Ref Arch diam 2.7 cm ---- AW thickness, ED (H) 0.8 cm 0.1 - 0.5 DEUCE, LAX 2.5 cm Decending aorta Value Ref DEUCE minor ax, A4C (H) 4.3 cm 1.9 - 3.5 Harika peak cory 0.74 m/sec ---- mid Inferior vena cava Value Ref Left atrium Value Ref Diam 2.0 cm ---- AP dim, ES (H) 4.60 cm 3.00 - 4.00 Pulmonary veins Value Ref ML dim, A4C 4.5 cm Peak v, S 0.5 m/sec ---- SI dim, A4C 5.5 cm Peak v, D 0.49 m/sec ---- Vol/bsa, ES, 1-p 33 ml/m^2 12 - 37 Peak S/D ratio 1 ---- A4C Peak A rev v 0.32 m/sec ---- A rev duration 100 ms ---- Right atrium Value Ref SI dim, ES 5.2 cm 3.4 - 5.3 ML dim, ES, A4C (H) 4.8 cm 2.6 - 4.4 Estimated RAP 8 mm Hg Legend: (L) and (H) shahnaz values outside specified reference range. Prepared and electronically signed by Geovanny Connors MD 02/26/2019 16:07
--- NOTE | 2019-02-26 18:42 | PN ---
Subjective Date of Service: 02/26/19 Interval History: Patient reports he feels well today. He reports when he went into afib last evening he felt mild palpitations and mild anxiety, but these symptoms have resolved. He denies cp, sob, nausea, diaphoresis, and dizziness currently and during last evening's episode. Continues to deny shortness of breath. Reports cough. Denies fever and chills. Objective Active Medications: Acetaminophen (Tylenol Tab*) 650 mg PO Q4H PRN PRN Reason: FEVER/PAIN Last Admin: 02/22/19 16:48 Dose: 650 mg Atorvastatin Calcium (Lipitor*) 40 mg PO DAILY [facility] Last Admin: 02/26/19 08:50 Dose: 40 mg Benzonatate (Tessalon Cap*) 100 mg PO BID PRN PRN Reason: COUGH Last Admin: 02/22/19 02:25 Dose: 100 mg Calcium Carbonate (Tums*) 500 mg PO BID [facility] Last Admin: 02/26/19 08:51 Dose: 500 mg Dextrose (D50w Syringe 50 Ml*) 12.5 gm IV PUSH .FOR FS < 60 - SS PRN PRN Reason: FS < 60 Diltiazem HCl (Cardizem Cd Cap*) 120 mg PO DAILY [facility] Diltiazem HCl (Cardizem Tab*) 60 mg PO 2330 ONE Stop: 02/26/19 23:31 Enoxaparin Sodium (Lovenox(*)) 80 mg SUBCUT Q12H [facility] Last Admin: 02/26/19 17:13 Dose: 80 mg Folic Acid (Folvite Tab*) 1 mg PO DAILY [facility] Last Admin: 02/26/19 08:51 Dose: 1 mg Guaifenesin/Codeine Phosphate (Robitussin Ac 100mg-10mg*) 5 ml PO Q4H PRN PRN Reason: COUGH Last Admin: 02/23/19 04:32 Dose: 5 ml Piperacillin Sod/Tazobactam (Sod 3.375 gm/ Sodium Chloride) 100 mls @ 25 mls/ hr IVPB Q8H [facility] Stop: 03/05/19 13:00 Last Admin: 02/26/19 17:12 Dose: 25 mls/hr Insulin Human Lispro (Humalog*) 0 units SUBCUT ACHS [facility]; Protocol Last Admin: 02/26/19 17:21 Dose: Not Given Ipratropium [place] (Atrovent 0.5 Mg Neb.Mavis*) 0.5 mg INH Q4H PRN PRN Reason: SOB/WHEEZING Levalbuterol HCl (Xopenex 0.63mg/3ml Neb*) 0.63 mg INH Q4H PRN PRN Reason: SOB/WHEEZING Magnesium Oxide (Magox 400 Tab*) 400 mg PO BID [facility] Last Admin: 02/26/19 08:51 Dose: 400 mg Metoprolol Succinate (Toprol Xl Tab*) 100 mg PO BID [facility] Last Admin: 02/26/19 08:50 Dose: 100 mg Metoprolol Tartrate (Lopressor Iv*) 5 mg IV Q6H PRN PRN Reason: HEART RATE/PULSE Last Admin: 02/26/19 04:04 Dose: 5 mg Nicotine (Nicotine Patch 14 Mg/24 Hr*) 1 patch TRANSDERM DAILY [facility] Last Admin: 02/26/19 08:51 Dose: Not Given Ondansetron HCl (Zofran Inj*) 4 mg IV Q4H PRN PRN Reason: NAUSEA/VOMITING Oxycodone HCl (Roxycodone Tab*) 10 mg PO BEDTIME PRN PRN Reason: PAIN Last Admin: 02/18/19 23:24 Dose: 5 mg Oxycodone HCl (Roxycodone Tab*) 10 mg PO Q8H PRN PRN Reason: PAIN - SEVERE Last Admin: 02/26/19 13:26 Dose: 10 mg Pantoprazole Sodium (Protonix Tab*) 40 mg PO DAILY [facility] Last Admin: 02/26/19 08:50 Dose: 40 mg Pharmacy Consult (Zosyn Per Pharmacy*) 1 note FOLLOW UP .ZOSYN PER PHARMACY [facility] Pharmacy Profile Note (Nicotine Patch Removal Note*) 1 note PATCH OFF 2100 [facility] Last Admin: 02/25/19 21:26 Dose: Not Given Pharmacy Profile Note (Ppd Reading Note*) 1 note .SEE ORDER .PPD READING ONE Stop: 02/27/19 18:01 Polyethylene Glycol/Electrolytes (Miralax*) 17 gm PO DAILY [facility] Last Admin: 02/26/19 08:51 Dose: Not Given Thiamine HCl (Vitamin B-1 Tab*) 100 mg PO DAILY [facility] Last Admin: 02/26/19 08:50 Dose: 100 mg Tiotropium [place] (Spiriva Cap.Inh*) 1 cap INH DAILY [facility] Last Admin: 02/26/19 09:37 Dose: 1 cap Vital Signs - 8 hr 02/26/19 02/26/19 02/26/19 10:43 11:43 11:48 Temperature 97.6 F Pulse Rate 87 Respiratory 18 Rate Blood Pressure 135/88 132/78 (mmHg) O2 Sat by Pulse 93 Oximetry 02/26/19 02/26/19 02/26/19 12:33 13:26 13:43 Temperature Pulse Rate Respiratory 18 Rate Blood Pressure 125/93 134/79 (mmHg) O2 Sat by Pulse Oximetry 02/26/19 02/26/19 15:23 17:59 Temperature 98.6 F Pulse Rate 71 Respiratory 20 16 Rate Blood Pressure 129/74 (mmHg) O2 Sat by Pulse 91 Oximetry Oxygen Devices in Use Now: None Appearance: Comfortable, NAD Eyes: No Scleral Icterus Ears/Nose/Mouth/Throat: Clear Oropharnyx, Mucous Membranes Moist Neck: NL Appearance and Movements; NL JVP Respiratory: Symmetrical Chest Expansion and Respiratory Effort, Clear to Auscultation Cardiovascular: NL Sounds; No Murmurs; No JVD, - - Afib. Trace bilateral le edema Abdominal: NL Sounds; No Tenderness; No Distention Lymphatic: No Cervical Adenopathy Extremities: No Clubbing, Cyanosis Skin: No Rash or Ulcers Neurological: Alert and Oriented x 3 Nutrition: Taking PO's Result Diagrams: 02/26/19 06:24 02/26/19 06:25 Additional Lab and Data: Laboratory Results - last 24 hr 02/25/19 02/25/19 02/26/19 19:39 21:30 06:24 WBC 12.2 H RBC 2.88 L Hgb 9.0 L Hct 27 L MCV 94 MCH 31 MCHC 33 RDW 14 Plt Count 636 H D MPV 7.1 L Neut % (Auto) 79.7 Lymph % (Auto) 9.4 [place] % (Auto) 7.4 Eos % (Auto) 2.3 Baso % (Auto) 1.2 Absolute Neuts (auto) 9.7 H Absolute Lymphs (auto) 1.1 Absolute Monos (auto) 0.9 H Absolute Eos (auto) 0.3 Absolute Basos (auto) 0.1 Absolute Nucleated RBC 0.0 Nucleated RBC % 0.0 Sodium Potassium Chloride Carbon Dioxide Anion Gap BUN Creatinine Est GFR ( Amer) Est GFR (Non-Af Amer) BUN/Creatinine Ratio Glucose POC Glucose (mg/dL) 122 H Calcium Magnesium Iron 17 L TIBC 130 L % Saturation 13 L Unsat Iron Binding < 115 Transferrin 93 L Ferritin 714.2 H C-Reactive Protein Vitamin B12 622 Folate 15.76 02/26/19 02/26/19 02/26/19 06:25 07:15 11:57 WBC RBC Hgb Hct MCV MCH MCHC RDW Plt Count MPV Neut % (Auto) Lymph % (Auto) [place] % (Auto) Eos % (Auto) Baso % (Auto) Absolute Neuts (auto) Absolute Lymphs (auto) Absolute Monos (auto) Absolute Eos (auto) Absolute Basos (auto) Absolute Nucleated RBC Nucleated RBC % Sodium 139 Potassium 3.6 Chloride 102 Carbon Dioxide 23 Anion Gap 14 H BUN 5 L Creatinine 0.65 L Est GFR ( Amer) 151.1 Est GFR (Non-Af Amer) 124.9 BUN/Creatinine Ratio 7.7 L Glucose 140 H POC Glucose (mg/dL) 160 H 89 Calcium 8.1 L Magnesium 1.7 L Iron TIBC % Saturation Unsat Iron Binding Transferrin Ferritin C-Reactive Protein 118.37 H Vitamin B12 Folate 02/26/19 17:08 WBC RBC Hgb Hct MCV MCH MCHC RDW Plt Count MPV Neut % (Auto) Lymph % (Auto) [place] % (Auto) Eos % (Auto) Baso % (Auto) Absolute Neuts (auto) Absolute Lymphs (auto) Absolute Monos (auto) Absolute Eos (auto) Absolute Basos (auto) Absolute Nucleated RBC Nucleated RBC % Sodium Potassium Chloride Carbon Dioxide Anion Gap BUN Creatinine Est GFR ( Amer) Est GFR (Non-Af Amer) BUN/Creatinine Ratio Glucose POC Glucose (mg/dL) 91 Calcium Magnesium Iron TIBC % Saturation Unsat Iron Binding Transferrin Ferritin C-Reactive Protein Vitamin B12 Folate Microbiology and Other Data: Microbiology 02/19/19 15:36 Sputum Expectorated Gram Stain - Final 02/19/19 15:36 Sputum Expectorated Sputum Culture - Final Streptococcus Constellatus YEAST Normal [place] 02/19/19 11:06 Blood Venous Aerobic Blood Culture - Final No Growth Day 5 02/19/19 11:06 Blood Venous Anaerobic Blood Culture - Final No Growth Day 5 02/20/19 17:53 Nasal Nasal Screen MRSA (PCR) - Final Mrsa Not Detected 02/19/19 16:40 Urine Urine Culture - Final 02/19/19 16:40 Urine Legionella Urinary Antigen - Final Negative Legionella Antigen 02/19/19 16:40 Urine Streptococcus pneumoniae Ag Screen - Final Negative S. pneumo Antigen Diagnostic Imaging: . EKG Data: Afib Assess/Plan/Problems-Billing Assessment: This is a 63 year old male with hx of COPD and ETOH use that presented to the ER after being sent by his PCP for evaluation of abnormal findings on screening chest CT. - Patient Problems (1) Lung mass Comment: - Treating for necrotizing pneumonia - PPD placed (02/25) today and will need to be read in 48 hr - Repeat CT ordered for tomorrow morning to assess for change. - Depending on results may beed biopsy given mass and pneumonia on differential - Induced sputum for cytology ordered (2) Anemia Comment: - Anemic and stable since admission. - [employer] consulted and noted that H&H was 14.4 and 42 in Oct 2018. - Stool ordered. - Iron studies consistent with anemia of chronic disease/inflammation. (3) Acute respiratory failure Comment: - Resolving - Requried ICU admissoin and vapotherm. - Now on room air - Ambulatory O2 obtained (4) Atrial fibrillation with rapid ventricular response Comment: - Afib with RVR in setting of acute etoh withdrawal; initially on cardizem drip than transition to amiodorone on 02/22. NSR as of 02/23. Stopped amiodorone and patient had another episode of afib. Required cardizem drip last evening. Now on PO. - Cardiology consulting and switched CCB to PO which should be continued, recommends continue BB and will need oral anti coagulation at discharge. Currently on full dose Lovenox. Has not been transitioned to oral anti coagulation yet due to concern for possible biopsy of lung mass (5) COPD (chronic obstructive pulmonary disease) Comment: - History of tobacco use - Continue home inhalers (6) Chronic pain Comment: - Continue home oxycodone regime (7) EtOH dependence Current Visit: Yes Status: Acute Code(s): F10.20 - ALCOHOL DEPENDENCE, UNCOMPLICATED SNOMED Code(s): 81674396 Comment: - Resolved. - Required ICU and precedex drip previously (8) Necrotizing pneumonia Comment: - Consults with Dr. Singleton and Dr. Fatima appreciated who suspect less likely mass, continue to treat for pneumonia. May need biopsy depending on results of repeat CT which was ordered for tomorrow. Hard to assess improvement clinically as hospital course was complicated by etoh withdrawal and afib with RVR - Sputum cultures resulted and abx changed accordingly. Now on Zosyn. ID consulting and recommends PO Levaquin at discharge for a total of 3 weeks of abx. Also recommends repeat imaging close to end of treatment. - Negative urine strep antigen, negative legionella - Follow blood cultures - Nebs PRN, mucinex BID, flutter valve (9) Uncontrolled type 2 diabetes mellitus with hyperglycemia Comment: - A1c 14.9 - Hyperglycemic on admission. - Dr. Ring consulted - Initially on lantus, sliding scale, and AC insulin; but now only ss given hypoglycemic episodes. - Patient drinking chau daily which could have been attributing to poor blood sugar control as outpatient. - Will need follow up as outpatient as BG is controlled in this controlled setting (10) DVT prophylaxis Comment: - diegox (11) Full code status Status and Disposition: Inpatient. Discharge when medically stable
[2019-02-26] MEDS ORDERED: oxyCODONE TAB* 5 MG TAB PO PRN (18:54)
[2019-02-26] MEDS: Nicotine Patch Removal NOTE PATCH OFF SCH (20:24)
[2019-02-26] MEDS ORDERED: Diltiazem TAB* 60 MG PO ONE (23:30)
[2019-02-27] MEDS: Enoxaparin(*) 80 MG/0.8 ML SYR SUBCUT SCH ×2 (03:13→15:52)
[2019-02-27] MEDS: ZOSYN 3.375 GM Q8H per EXTENDED INFUSION IVPB SCH ×6 (03:13→19:51)
[2019-02-27] MEDS: oxyCODONE TAB* 5 MG TAB PO PRN ×2 (08:18→17:09)
[2019-02-27] MEDS: Metoprolol Succinate XL TAB* 100 MG PO SCH ×2 (08:19→20:34)
[2019-02-27] MEDS: Atorvastatin* 40 MG TAB PO SCH (08:19)
[2019-02-27] MEDS: Pantoprazole TAB * 40 MG TAB PO SCH (08:19)
[2019-02-27] MEDS: Folic Acid TAB* 1 MG PO SCH (08:19)
[2019-02-27] MEDS: Diltiazem CD CAP* 120 MG PO SCH (08:20)
[2019-02-27] MEDS: Magnesium Oxide TAB* 400 MG PO SCH ×2 (08:20→20:34)
[2019-02-27] MEDS: Thiamine TAB* 100 MG TAB PO SCH (08:20)
[2019-02-27] MEDS: Calcium Carbonate CHEW TAB* 500 MG (TUMS) PO SCH ×2 (08:21→20:34)
[2019-02-27] MEDS: Insulin LISPRO* 1 UNITS UNIT SUBCUT SCH ×4 (08:21→20:48)
[2019-02-27] MEDS: Nicotine PATCH 14 MG/24 HR* PATCH TRANSDERM SCH (08:24)
[2019-02-27] MEDS: Polyethylene Glycol 3350* 17 GM PACKET PO SCH (08:24)
[2019-02-27] MEDS: Tiotropium CAP.INH* CAP.INH/18 MCG (USE ORDER SET !) INH SCH (09:13)
--- NOTE | 2019-02-27 16:22 | PN ---
Progress Note - Progress Note Date of Service: 02/27/19 - Pulm f/u note Note: Pt seen and examined at bedside. Interim events noted. Pt is slightly agitated. He is wanting to go home. Denies cough, is on RA and not in distress. Pt had f/u CT that showed progression of Rt lung air space opacities. New pleural effusions also noted Active Medications Generic Name Dose Route Start Last Admin Trade Name Freq PRN Reason Stop Dose Admin Acetaminophen 650 mg 02/18/19 16:32 02/22/19 16:48 Tylenol Tab* PO 650 mg Q4H PRN Administration FEVER/PAIN Atorvastatin Calcium 40 mg 02/19/19 09:00 02/27/19 08:19 Lipitor* PO 40 mg DAILY [facility] Administration Benzonatate 100 mg 02/21/19 03:12 02/22/19 02:25 Tessalon Cap* PO 100 mg BID PRN Administration COUGH Calcium Carbonate 500 mg 02/21/19 21:00 02/27/19 08:21 Tums* PO 500 mg BID [facility] Administration Dextrose 12.5 gm 02/18/19 17:00 D50w Syringe 50 Ml* IV PUSH .FOR FS < 60 - SS PRN FS < 60 Diltiazem HCl 120 mg 02/27/19 09:00 02/27/19 08:20 Cardizem Cd Cap* PO 120 mg DAILY [facility] Administration Doxycycline Hyclate 100 mg 02/27/19 21:00 Vibramycin Cap(*) PO BID [facility] Folic Acid 1 mg 02/19/19 09:00 02/27/19 08:19 Folvite Tab* PO 1 mg DAILY [facility] Administration Guaifenesin/Codeine Phosphate 5 ml 02/22/19 05:16 02/23/19 04:32 Robitussin Ac 100mg-10mg* PO 5 ml Q4H PRN Administration COUGH Piperacillin Sod/Tazobactam 100 mls @ 25 mls/hr 02/19/19 18:00 02/27/19 11:21 Sod 3.375 gm/ Sodium Chloride IVPB 03/05/19 13:00 25 mls/hr Q8H [facility] Administration Insulin Human Lispro 0 units 02/18/19 21:00 02/27/19 12:49 Humalog* SUBCUT 2 units ACHS [facility] Administration Protocol Ipratropium [place] 0.5 mg 02/22/19 08:52 Atrovent 0.5 Mg Neb.Mavis* INH Q4H PRN SOB/WHEEZING Levalbuterol HCl 0.63 mg 02/22/19 08:51 Xopenex 0.63mg/3ml Neb* INH Q4H PRN SOB/WHEEZING Magnesium Oxide 400 mg 02/21/19 09:00 02/27/19 08:20 Magox 400 Tab* PO 400 mg BID [facility] Administration Metoprolol Succinate 100 mg 02/21/19 21:00 02/27/19 08:19 Toprol Xl Tab* PO 100 mg BID [facility] Administration Metoprolol Tartrate 5 mg 02/21/19 11:17 02/26/19 04:04 Lopressor Iv* IV 5 mg Q6H PRN Administration HEART RATE/PULSE Nicotine 1 patch 02/19/19 09:00 02/27/19 08:24 Nicotine Patch 14 Mg/24 Hr* TRANSDERM Not Given DAILY [facility] Ondansetron HCl 4 mg 02/18/19 16:32 Zofran Inj* IV Q4H PRN NAUSEA/VOMITING Oxycodone HCl 10 mg 02/18/19 16:39 02/18/19 23:24 Roxycodone Tab* PO 5 mg BEDTIME PRN Administration PAIN Oxycodone HCl 10 mg 02/18/19 16:41 02/27/19 08:18 Roxycodone Tab* PO 10 mg Q8H PRN Administration PAIN - SEVERE Oxycodone HCl 5 mg 02/26/19 18:54 Roxycodone Tab* PO Q4H PRN PAIN - MODERATE TO SEVERE Pantoprazole Sodium 40 mg 02/19/19 09:00 02/27/19 08:19 Protonix Tab* PO 40 mg DAILY [facility] Administration Pharmacy Consult 1 note 02/19/19 13:00 Zosyn Per Pharmacy* FOLLOW UP .ZOSYN PER PHARMACY [facility] Pharmacy Profile Note 1 note 02/18/19 21:00 02/26/19 20:24 Nicotine Patch Removal Note* PATCH OFF Not Given [address] [place] [address] Pharmacy Profile Note 1 note 02/27/19 18:00 Ppd Reading Note* .SEE ORDER 02/27/19 18:01 .PPD READING ONE Polyethylene Glycol/Electrolytes 17 gm 02/22/19 09:00 02/27/19 08:24 Miralax* PO Not Given DAILY [facility] Thiamine HCl 100 mg 02/19/19 09:00 05/09/19 08:20 Vitamin B-1 Tab* PO 100 mg DAILY [facility] Administration Tiotropium [place] 1 cap 02/19/19 09:00 02/27/19 09:13 Spiriva Cap.Inh* INH 1 cap DAILY [facility] Administration Vital Signs Temp Pulse Resp BP Pulse Ox 97.6 F 75 16 154/88 91 02/27/19 08:22 02/27/19 09:14 02/27/19 12:49 02/27/19 08:51 02/27/19 09:14 O/E: Pt is anxious, agitated HEENT: PERRLA, no JVD Lungs: Diminished breath sounds on right side, inspiratory squeaks + CVS: S1, S2+ Abd: Soft, BS+ Ext: Normal ROM Skin: No rash Neuro: Alert, awake, no focal deficits Laboratory Results - last 24 hr 02/26/19 02/26/19 02/27/19 17:08 20:02 07:32 POC Glucose (mg/dL) 91 192 H 160 H 02/27/19 12:09 POC Glucose (mg/dL) 141 H I/R: 63 year old male with hx of COPD and ETOH use that presented to the ER after being sent by his PCP for evaluation of abnormal findings on screening chest CT. CT chest rpt showed worsening findings Unclear etiology- Infectious versus inflammatory versus neoplastic Pt will need biopsy to delineate etiology- Will send tissue for pathology and cultures-bacterial, fungal and AFB Lovenox being held Pt NPO after midnight Discussed with radiology, possible that it would happen tomorrow Pt has been hostile to team and wanting to be d/keshawn He agreed to stay for procedure tomorrow D/w Dr Hernandez
--- NOTE | 2019-02-27 16:25 | PN ---
Subjective Date of Service: 02/27/19 Interval History: Patient awake, anxious and upset that he did have to stay. CT scan from this morning reviewed and reveals worsening CT finding consistent with worsening parenchymal disease. He is coughing, brown purulent phlegm no hemoptysis. Several attempt to convince the patient to stay for biopsy failed by my, i was able to reach out to Dr. Fatima who kindly came in and saw the patient and was able to convince him to stay for lung biopsy in am via IR. Past Medical History: Unchanged from Admission Objective Active Medications: Acetaminophen (Tylenol Tab*) 650 mg PO Q4H PRN PRN Reason: FEVER/PAIN Last Admin: 02/22/19 16:48 Dose: 650 mg Atorvastatin Calcium (Lipitor*) 40 mg PO DAILY [facility] Last Admin: 02/27/19 08:19 Dose: 40 mg Benzonatate (Tessalon Cap*) 100 mg PO BID PRN PRN Reason: COUGH Last Admin: 02/22/19 02:25 Dose: 100 mg Calcium Carbonate (Tums*) 500 mg PO BID [facility] Last Admin: 02/27/19 08:21 Dose: 500 mg Dextrose (D50w Syringe 50 Ml*) 12.5 gm IV PUSH .FOR FS < 60 - SS PRN PRN Reason: FS < 60 Diltiazem HCl (Cardizem Cd Cap*) 120 mg PO DAILY [facility] Last Admin: 02/27/19 08:20 Dose: 120 mg Doxycycline Hyclate (Vibramycin Cap(*)) 100 mg PO 0600,1800 [facility] Folic Acid (Folvite Tab*) 1 mg PO DAILY [facility] Last Admin: 02/27/19 08:19 Dose: 1 mg Guaifenesin/Codeine Phosphate (Robitussin Ac 100mg-10mg*) 5 ml PO Q4H PRN PRN Reason: COUGH Last Admin: 02/23/19 04:32 Dose: 5 ml Piperacillin Sod/Tazobactam (Sod 3.375 gm/ Sodium Chloride) 100 mls @ 25 mls/ hr IVPB Q8H [facility] Stop: 03/05/19 13:00 Last Admin: 02/27/19 11:21 Dose: 25 mls/hr Insulin Human Lispro (Humalog*) 0 units SUBCUT ACHS [facility]; Protocol Last Admin: 02/27/19 12:49 Dose: 2 units Ipratropium [place] (Atrovent 0.5 Mg Neb.Mavis*) 0.5 mg INH Q4H PRN PRN Reason: SOB/WHEEZING Levalbuterol HCl (Xopenex 0.63mg/3ml Neb*) 0.63 mg INH Q4H PRN PRN Reason: SOB/WHEEZING Magnesium Oxide (Magox 400 Tab*) 400 mg PO BID [facility] Last Admin: 02/27/19 08:20 Dose: 400 mg Metoprolol Succinate (Toprol Xl Tab*) 100 mg PO BID [facility] Last Admin: 02/27/19 08:19 Dose: 100 mg Metoprolol Tartrate (Lopressor Iv*) 5 mg IV Q6H PRN PRN Reason: HEART RATE/PULSE Last Admin: 02/26/19 04:04 Dose: 5 mg Nicotine (Nicotine Patch 14 Mg/24 Hr*) 1 patch TRANSDERM DAILY [facility] Last Admin: 02/27/19 08:24 Dose: Not Given Ondansetron HCl (Zofran Inj*) 4 mg IV Q4H PRN PRN Reason: NAUSEA/VOMITING Oxycodone HCl (Roxycodone Tab*) 10 mg PO BEDTIME PRN PRN Reason: PAIN Last Admin: 02/18/19 23:24 Dose: 5 mg Oxycodone HCl (Roxycodone Tab*) 10 mg PO Q8H PRN PRN Reason: PAIN - SEVERE Last Admin: 02/27/19 08:18 Dose: 10 mg Oxycodone HCl (Roxycodone Tab*) 5 mg PO Q4H PRN PRN Reason: PAIN - MODERATE TO SEVERE Pantoprazole Sodium (Protonix Tab*) 40 mg PO DAILY [facility] Last Admin: 02/27/19 08:19 Dose: 40 mg Pharmacy Consult (Zosyn Per Pharmacy*) 1 note FOLLOW UP .ZOSYN PER PHARMACY [facility] Pharmacy Profile Note (Nicotine Patch Removal Note*) 1 note PATCH OFF 2100 [facility] Last Admin: 02/26/19 20:24 Dose: Not Given Pharmacy Profile Note (Ppd Reading Note*) 1 note .SEE ORDER .PPD READING ONE Stop: 02/27/19 18:01 Polyethylene Glycol/Electrolytes (Miralax*) 17 gm PO DAILY [facility] Last Admin: 02/27/19 08:24 Dose: Not Given Thiamine HCl (Vitamin B-1 Tab*) 100 mg PO DAILY [facility] Last Admin: 02/27/19 08:20 Dose: 100 mg Tiotropium [place] (Spiriva Cap.Inh*) 1 cap INH DAILY [facility] Last Admin: 02/27/19 09:13 Dose: 1 cap Vital Signs - 8 hr 02/27/19 02/27/19 02/27/19 08:22 08:51 09:14 Temperature 97.6 F Pulse Rate 70 72 Respiratory 18 16 Rate Blood Pressure 154/88 (mmHg) O2 Sat by Pulse 98 91 Oximetry 02/27/19 12:49 Temperature Pulse Rate Respiratory 16 Rate Blood Pressure (mmHg) O2 Sat by Pulse Oximetry Oxygen Devices in Use Now: None Appearance: Awake, anxious agitated Eyes: No Scleral Icterus, - - EOMI Ears/Nose/Mouth/Throat: NL Teeth, Lips, Gums, Mucous Membranes Moist Neck: NL Appearance and Movements; NL JVP, Trachea Midline Respiratory: Symmetrical Chest Expansion and Respiratory Effort, - - coarse rhonchi at right side. Cardiovascular: NL Sounds; No Murmurs; No JVD, No Edema, - - + Clubbing Abdominal: NL Sounds; No Tenderness; No Distention Extremities: No Edema Neurological: Alert and Oriented x 3 Result Diagrams: 02/26/19 06:24 02/26/19 06:25 Additional Lab and Data: Laboratory Results - last 24 hr 02/25/19 02/25/19 02/26/19 19:39 21:30 06:24 WBC 12.2 H RBC 2.88 L Hgb 9.0 L Hct 27 L MCV 94 MCH 31 MCHC 33 RDW 14 Plt Count 636 H D MPV 7.1 L Neut % (Auto) 79.7 Lymph % (Auto) 9.4 [place] % (Auto) 7.4 Eos % (Auto) 2.3 Baso % (Auto) 1.2 Absolute Neuts (auto) 9.7 H Absolute Lymphs (auto) 1.1 Absolute Monos (auto) 0.9 H Absolute Eos (auto) 0.3 Absolute Basos (auto) 0.1 Absolute Nucleated RBC 0.0 Nucleated RBC % 0.0 Sodium Potassium Chloride Carbon Dioxide Anion Gap BUN Creatinine Est GFR ( Amer) Est GFR (Non-Af Amer) BUN/Creatinine Ratio Glucose POC Glucose (mg/dL) 122 H Calcium Magnesium Iron 17 L TIBC 130 L % Saturation 13 L Unsat Iron Binding < 115 Transferrin 93 L Ferritin 714.2 H C-Reactive Protein Vitamin B12 622 Folate 15.76 02/26/19 02/26/19 02/26/19 06:25 07:15 11:57 WBC RBC Hgb Hct MCV MCH MCHC RDW Plt Count MPV Neut % (Auto) Lymph % (Auto) [place] % (Auto) Eos % (Auto) Baso % (Auto) Absolute Neuts (auto) Absolute Lymphs (auto) Absolute Monos (auto) Absolute Eos (auto) Absolute Basos (auto) Absolute Nucleated RBC Nucleated RBC % Sodium 139 Potassium 3.6 Chloride 102 Carbon Dioxide 23 Anion Gap 14 H BUN 5 L Creatinine 0.65 L Est GFR ( Amer) 151.1 Est GFR (Non-Af Amer) 124.9 BUN/Creatinine Ratio 7.7 L Glucose 140 H POC Glucose (mg/dL) 160 H 89 Calcium 8.1 L Magnesium 1.7 L Iron TIBC % Saturation Unsat Iron Binding Transferrin Ferritin C-Reactive Protein 118.37 H Vitamin B12 Folate 02/26/19 17:08 WBC RBC Hgb Hct MCV MCH MCHC RDW Plt Count MPV Neut % (Auto) Lymph % (Auto) [place] % (Auto) Eos % (Auto) Baso % (Auto) Absolute Neuts (auto) Absolute Lymphs (auto) Absolute Monos (auto) Absolute Eos (auto) Absolute Basos (auto) Absolute Nucleated RBC Nucleated RBC % Sodium Potassium Chloride Carbon Dioxide Anion Gap BUN Creatinine Est GFR ( Amer) Est GFR (Non-Af Amer) BUN/Creatinine Ratio Glucose POC Glucose (mg/dL) 91 Calcium Magnesium Iron TIBC % Saturation Unsat Iron Binding Transferrin Ferritin C-Reactive Protein Vitamin B12 Folate Microbiology and Other Data: Microbiology 02/19/19 15:36 Sputum Expectorated Gram Stain - Final 02/19/19 15:36 Sputum Expectorated Sputum Culture - Final Streptococcus Constellatus YEAST Normal [place] 02/19/19 11:06 Blood Venous Aerobic Blood Culture - Final No Growth Day 5 02/19/19 11:06 Blood Venous Anaerobic Blood Culture - Final No Growth Day 5 02/20/19 17:53 Nasal Nasal Screen MRSA (PCR) - Final [place] Not Detected 02/19/19 16:40 Urine Urine Culture - Final 02/19/19 16:40 Urine Legionella Urinary Antigen - Final Negative Legionella Antigen 02/19/19 16:40 Urine Streptococcus pneumoniae Ag Screen - Final Negative S. pneumo Antigen Diagnostic Imaging: . EKG Data: Afib Assess/Plan/Problems-Billing Assessment: This is a 63 year old male with hx of COPD and ETOH use that presented to the ER after being sent by his PCP for evaluation of abnormal findings on screening chest CT. - Patient Problems (1) Lung mass Current Visit: Yes Status: Acute Code(s): R91.8 - OTHER NONSPECIFIC ABNORMAL FINDING OF LUNG FIELD SNOMED Code(s): 951812108 Comment: - Repeat CT on 02/27/19 showed worsening "necrotizing pneumonia" - PPD placed (02/25) today read negative - Discussed with patient and he was very resistant to have to stay an extra day. He finally agreed after Dr. Wild was able to convince him for biopsy via IR in am - Induced sputum for cytology ordered result not available (2) Necrotizing pneumonia Current Visit: Yes Status: Acute Code(s): J85.0 - GANGRENE AND NECROSIS OF LUNG SNOMED Code(s): 7533802 Comment: - Consults with Dr. Singleton and Dr. Fatima appreciated who suspect less likely mass, continue to treat for pneumonia. - Sputum cultures resulted and abx changed accordingly. Now on Zosyn. ID consulting and recommends PO Levaquin at discharge for a total of 3 weeks of abx. - Negative urine strep antigen, negative legionella - Repeat CT on 02/27/19 showed worsening "necrotizing pneumonia" - PPD placed (02/25) today read negative - Discussed with patient and he was very resistant to have to stay an extra day. He finally agreed after Dr. Wild was able to convince him for biopsy via IR in am - Induced sputum for cytology ordered result not available - blood cultures negative - Nebs PRN, mucinex BID, flutter valve (3) Anemia Current Visit: Yes Status: Acute Code(s): D64.9 - ANEMIA, UNSPECIFIED SNOMED Code(s): 741012139 Comment: - Anemic and stable since admission. - Iron studies consistent with anemia of chronic disease/inflammation. (4) Atrial fibrillation with rapid ventricular response Current Visit: Yes Status: Acute Code(s): I48.91 - UNSPECIFIED ATRIAL FIBRILLATION SNOMED Code(s): 258782147993393 Comment: - s/p Afib with RVR in setting of acute etoh withdrawal - s/p cardizem drip than transition to amiodorone on 02/22. NSR as of 02/23. Cardiology consulted and switched PO Cardizem 120 mg Daily and metoprolol 100 mg bid. - Will need anti coagulation at discharge. Currently on full dose Lovenox (on hold this evening for lung biopsy in am). (5) COPD (chronic obstructive pulmonary disease) Current Visit: Yes Status: Acute Code(s): J44.9 - CHRONIC OBSTRUCTIVE PULMONARY DISEASE, UNSPECIFIED SNOMED Code(s): 59026542 Comment: - History of tobacco use - Continue home inhalers (6) EtOH dependence Current Visit: Yes Status: Acute Code(s): F10.20 - ALCOHOL DEPENDENCE, UNCOMPLICATED SNOMED Code(s): 20096135 Comment: - Resolved. s/p ICU and precedex drip previously (7) Uncontrolled type 2 diabetes mellitus with hyperglycemia Current Visit: Yes Status: Acute Code(s): E11.65 - TYPE 2 DIABETES MELLITUS WITH HYPERGLYCEMIA SNOMED Code(s): 939596434 Comment: - A1c 14.9 - Hyperglycemic on admission. - Dr. Ring consulted - Initially on lantus, sliding scale, and AC insulin; but now only ss given hypoglycemic episodes. - Patient drinking chau daily which could have been attributing to poor blood sugar control as outpatient. - Will need follow up as outpatient as BG is controlled in this controlled setting (8) DVT prophylaxis Current Visit: Yes Status: Acute Code(s): PUZ1764 - SNOMED Code(s): 487971412 Comment: - lovenox for now full dose due to afib. Will need oral anticoagulation on discharge Status and Disposition: Inpatient. Discharge when medically stable
[2019-02-27] MEDS: DOXYcycline CAP(*) 100 MG PO SCH (17:40)
[2019-02-27] MEDS ORDERED: PPD Reading NOTE* (*USE PPD ORDER SET*) ONE (18:00)
[2019-02-27] MEDS: Nicotine Patch Removal NOTE PATCH OFF SCH (20:31)
[2019-02-28] MEDS: oxyCODONE TAB* 5 MG TAB PO PRN ×3 (03:01→21:45)
[2019-02-28] MEDS: ZOSYN 3.375 GM Q8H per EXTENDED INFUSION IVPB SCH ×6 (03:02→19:43)
[2019-02-28] MEDS: DOXYcycline CAP(*) 100 MG PO SCH ×2 (05:46→19:42)
[2019-02-28 06:51] LABS: ABS Basophils 0.1 10^3/ul (0-0.2); ABS Eosinophils 0.1 10^3/ul (0-0.6); ABS Lymphocytes 1.2 10^3/ul (1.0-4.8); ABS Monocytes 0.7 10^3/ul (0-0.8); ABS Neutrophils 7.5 10^3/ul (1.5-7.7); Eosinophil % 1.5 %; Hematocrit 27 % (42-52); Lymphocyte % 12.5 %; Mean Corpuscular HGB Conc 33 g/dL (31-36); Mean Corpuscular Hemoglobin 31 pg (27-31); Mean Corpuscular Volume 94 fL (80-94); Mean Platelet Volume 6.8 fL (7.4-10.4); Platelet Count 628 10^3/uL (150-450); Red Blood Count 2.92 10^6 /uL (4.18-5.48); Red Cell Distribution Width 14 % (10.5-15); White Blood Count 9.6 10^3/uL (3.5-10.8)
[2019-02-28 07:04] LABS: Calcium 8.3 mg/dL (8.6-10.3); Magnesium 1.6 mg/dL (1.9-2.7); Potassium 3.4 mmol/L (3.5-5.0)
[2019-02-28 07:10] LABS: BUN/Creatinine Ratio 7.4 (8-20); EGFR African American 143.4 (>60); EGFR Non-African American 118.6 (>60)
[2019-02-28] MEDS: Tiotropium CAP.INH* CAP.INH/18 MCG (USE ORDER SET !) INH SCH (08:37)
[2019-02-28] MEDS ORDERED: Magnesium Sulfate 2 GM IV* 2 GM/50 ML BAG IVPB ONE (09:18)
[2019-02-28] MEDS ORDERED: Potassium Chlor TAB* 20 MEQ TAB.ER PO ONE ×2 (09:19→11:04)
[2019-02-28] MEDS: Metoprolol Tartrate IV* 1 MG/ML 5 ML VIAL IV PRN (10:19)
[2019-02-28] MEDS: Insulin LISPRO* 1 UNITS UNIT SUBCUT SCH ×4 (10:22→21:43)
[2019-02-28] MEDS: Calcium Carbonate CHEW TAB* 500 MG (TUMS) PO SCH ×2 (10:23→21:41)
[2019-02-28] MEDS: Thiamine TAB* 100 MG TAB PO SCH (10:23)
[2019-02-28] MEDS: Pantoprazole TAB * 40 MG TAB PO SCH (10:23)
[2019-02-28] MEDS: Atorvastatin* 40 MG TAB PO SCH (10:23)
[2019-02-28] MEDS: Diltiazem CD CAP* 120 MG PO SCH (10:24)
[2019-02-28] MEDS: Magnesium Oxide TAB* 400 MG PO SCH ×2 (10:24→21:38)
[2019-02-28] MEDS: Folic Acid TAB* 1 MG PO SCH (10:24)
[2019-02-28] MEDS: Nicotine PATCH 14 MG/24 HR* PATCH TRANSDERM SCH (10:24)
[2019-02-28] MEDS: Metoprolol Succinate XL TAB* 100 MG PO SCH (10:24)
[2019-02-28] MEDS: Polyethylene Glycol 3350* 17 GM PACKET PO SCH (10:24)
[2019-02-28] MEDS ORDERED: Diltiazem CD CAP* 120 MG PO ONE (10:57)
--- NOTE | 2019-02-28 11:10 | PN ---
<Lianne Dove - Last Filed: 02/28/19 11:05> Subjective Date of Service: 02/28/19 - PAF abnormal lung CT Interval History: Patient went into AF with labile heart rate control this morning he reports palpitations. Denies chest pain, dizziness, sensation of heart racing. He is anxious to go home but is to have lung biopsy today Medications Active Medications: Acetaminophen (Tylenol Tab*) 650 mg PO Q4H PRN PRN Reason: FEVER/PAIN Last Admin: 02/22/19 16:48 Dose: 650 mg Atorvastatin Calcium (Lipitor*) 40 mg PO DAILY [facility] Last Admin: 02/28/19 10:23 Dose: 40 mg Benzonatate (Tessalon Cap*) 100 mg PO BID PRN PRN Reason: COUGH Last Admin: 02/22/19 02:25 Dose: 100 mg Calcium Carbonate (Tums*) 500 mg PO BID [facility] Last Admin: 02/28/19 10:23 Dose: 500 mg Dextrose (D50w Syringe 50 Ml*) 12.5 gm IV PUSH .FOR FS < 60 - SS PRN PRN Reason: FS < 60 Diltiazem HCl (Cardizem Cd Cap*) 240 mg PO DAILY [facility] Doxycycline Hyclate (Vibramycin Cap(*)) 100 mg PO 0600,1800 [facility] Last Admin: 02/28/19 05:46 Dose: 100 mg Folic Acid (Folvite Tab*) 1 mg PO DAILY [facility] Last Admin: 02/28/19 10:24 Dose: 1 mg Guaifenesin/Codeine Phosphate (Robitussin Ac 100mg-10mg*) 5 ml PO Q4H PRN PRN Reason: COUGH Last Admin: 02/23/19 04:32 Dose: 5 ml Piperacillin Sod/Tazobactam (Sod 3.375 gm/ Sodium Chloride) 100 mls @ 25 mls/ hr IVPB Q8H [facility] Stop: 03/05/19 13:00 Last Admin: 02/28/19 03:02 Dose: 25 mls/hr Insulin Human Lispro (Humalog*) 0 units SUBCUT ACHS [facility]; Protocol Last Admin: 02/28/19 10:22 Dose: 2 units Ipratropium [place] (Atrovent 0.5 Mg Neb.Mavis*) 0.5 mg INH Q4H PRN PRN Reason: SOB/WHEEZING Levalbuterol HCl (Xopenex 0.63mg/3ml Neb*) 0.63 mg INH Q4H PRN PRN Reason: SOB/WHEEZING Magnesium Oxide (Magox 400 Tab*) 400 mg PO BID [facility] Last Admin: 02/28/19 10:24 Dose: 400 mg Metoprolol Succinate (Toprol Xl Tab*) 100 mg PO BID [facility] Last Admin: 02/28/19 10:24 Dose: 100 mg Metoprolol Tartrate (Lopressor Iv*) 5 mg IV Q6H PRN PRN Reason: HEART RATE/PULSE Last Admin: 02/28/19 10:19 Dose: 5 mg Nicotine (Nicotine Patch 14 Mg/24 Hr*) 1 patch TRANSDERM DAILY [facility] Last Admin: 02/28/19 10:24 Dose: Not Given Ondansetron HCl (Zofran Inj*) 4 mg IV Q4H PRN PRN Reason: NAUSEA/VOMITING Oxycodone HCl (Roxycodone Tab*) 10 mg PO BEDTIME PRN PRN Reason: PAIN Last Admin: 02/18/19 23:24 Dose: 5 mg Oxycodone HCl (Roxycodone Tab*) 10 mg PO Q8H PRN PRN Reason: PAIN - SEVERE Last Admin: 02/28/19 03:01 Dose: 10 mg Oxycodone HCl (Roxycodone Tab*) 5 mg PO Q4H PRN PRN Reason: PAIN - MODERATE TO SEVERE Pantoprazole Sodium (Protonix Tab*) 40 mg PO DAILY [facility] Last Admin: 02/28/19 10:23 Dose: 40 mg Pharmacy Consult (Zosyn Per Pharmacy*) 1 note FOLLOW UP .ZOSYN PER PHARMACY [facility] Pharmacy Profile Note (Nicotine Patch Removal Note*) 1 note PATCH OFF 2100 [facility] Last Admin: 02/27/19 20:31 Dose: Not Given Polyethylene Glycol/Electrolytes (Miralax*) 17 gm PO DAILY [facility] Last Admin: 02/28/19 10:24 Dose: Not Given Potassium Chloride (Klor Con Er Tab*) 20 meq PO ONCE ONE Stop: 02/28/19 11:05 Thiamine HCl (Vitamin B-1 Tab*) 100 mg PO DAILY [facility] Last Admin: 02/28/19 10:23 Dose: 100 mg Tiotropium [place] (Spiriva Cap.Inh*) 1 cap INH DAILY [facility] Last Admin: 02/28/19 08:37 Dose: 1 cap Objective Vital Signs: Temp Pulse Resp BP Pulse Ox 98.0 F 100 18 129/92 95 02/28/19 07:31 02/28/19 08:38 02/28/19 08:38 02/28/19 07:31 02/28/19 08:38 Oxygen Devices in Use Now: None Appearance: well nourished, A+O x3, NAD Eyes: No Scleral Icterus Ears/Nose/Mouth/Throat: NL Teeth, Lips, Gums, Mucous Membranes Moist Neck: NL Appearance and Movements; NL JVP Respiratory: Symmetrical Chest Expansion and Respiratory Effort Cardiovascular: - - irregular rate and rhythm, no gallop or murmur. Abdominal: NL Sounds; No Tenderness; No Distention Extremities: No Edema Lines/Tubes/Other Access: Clean, Dry and Intact Peripheral IV Laboratory Results: 02/28/19 06:21 02/28/19 06:21 Total Bilirubin 0.40 mg/dL (0.2-1.0) 02/24/19 06:58 AST 24 U/L (13-39) 02/24/19 06:58 ALT 24 U/L (7-52) 02/24/19 06:58 Alkaline Phosphatase 176 U/L (34-104) H 02/24/19 06:58 B-Natriuretic Peptide 733 pg/mL (<=100) H 02/21/19 04:11 Total Protein 6.0 g/dL (6.4-8.9) L 02/24/19 06:58 Albumin 2.4 g/dL (3.2-5.2) L 02/24/19 06:58 Globulin 3.6 g/dL (2-4) 02/24/19 06:58 Albumin/Globulin Ratio 0.7 (1-3) L 02/24/19 06:58 TSH 0.80 mcIU/mL (0.34-5.60) 02/19/19 06:22 02/18/19 14:09 Troponin I 0.02 Laboratory Results - last 24 hr 02/27/19 02/27/19 02/27/19 12:09 17:12 20:35 WBC RBC Hgb Hct MCV MCH MCHC RDW Plt Count MPV Neut % (Auto) Lymph % (Auto) [place] % (Auto) Eos % (Auto) Baso % (Auto) Absolute Neuts (auto) Absolute Lymphs (auto) Absolute Monos (auto) Absolute Eos (auto) Absolute Basos (auto) Absolute Nucleated RBC Nucleated RBC % Sodium Potassium Chloride Carbon Dioxide Anion Gap BUN Creatinine Est GFR ( Amer) Est GFR (Non-Af Amer) BUN/Creatinine Ratio Glucose POC Glucose (mg/dL) 141 H 124 H 168 H Calcium Phosphorus Magnesium 02/28/19 02/28/19 02/28/19 06:21 06:21 08:00 WBC 9.6 RBC 2.92 L Hgb 9.0 L Hct 27 L MCV 94 MCH 31 MCHC 33 RDW 14 Plt Count 628 H MPV 6.8 L Neut % (Auto) 77.7 Lymph % (Auto) 12.5 [place] % (Auto) 7.7 Eos % (Auto) 1.5 Baso % (Auto) 0.6 Absolute Neuts (auto) 7.5 Absolute Lymphs (auto) 1.2 Absolute Monos (auto) 0.7 Absolute Eos (auto) 0.1 Absolute Basos (auto) 0.1 Absolute Nucleated RBC 0.0 Nucleated RBC % 0.0 Sodium 139 Potassium 3.4 L Chloride 102 Carbon Dioxide 25 Anion Gap 12 H BUN 5 L Creatinine 0.68 Est GFR ( Amer) 143.4 Est GFR (Non-Af Amer) 118.6 BUN/Creatinine Ratio 7.4 L Glucose 127 H POC Glucose (mg/dL) 143 H Calcium 8.3 L Phosphorus 4.0 Magnesium 1.6 L Diagnostic Imaging: Echo 02/26/2019; LVEF 55-60%. please refer to dictated report for full details. Telemetry reviewed. AF rate 80-110 Assessment/Plan #1 PAF with labile heart rate control. Chads Vasc 2 will need to go home on OAC if okay from bleeding standpoint. He is to have lung biopsy today. On Cardizem 120mg/day and Toprol 100mg PO BID. Went back into AF today however K + is 3.4 and Mag 1.6, K+ and Mag have been replaced. I will given another 20 MEQ KDur now. Given one time dose of 120mg Po cardizem and increase daily dose to 240mg/ day. Monitor BP response. Keep K+ > 4, mag > 2. TFTs normal. #2 h/o HTN. recent BP 132/71 on Toprol 100mg Po BID and Cardizem 120mg/day. Cardizem to be increased to help with rate control will monitor BP closely. #3 Hypokalemia and Hypomagnesium. Patient given IV Mag 2 grams and 40 MEQ K- Dur. Will given another 20 MEQ K-Dur and update BMP at 1400. Keep k+> 4, Mag > 2 to help sustain NSR. #4 Abnormal low dose lung CT; pulm following and patient is to have lung biopsy today #5 Disposition pending course. Will d/w Dr. Luu. Attending: Kaycee Luu <Kaycee Luu - Last Filed: 02/28/19 11:37> Subjective Interval History: 02.28.2019 11:36 am. pt seen and examined. above reviewed and d/w VANESSA Abdalla. lung biopsy as per pulmonary. anticoagulation when safe to do so. agree with plan of care. Medications Active Medications: Acetaminophen (Tylenol Tab*) 650 mg PO Q4H PRN PRN Reason: FEVER/PAIN Last Admin: 02/22/19 16:48 Dose: 650 mg Atorvastatin Calcium (Lipitor*) 40 mg PO DAILY [facility] Last Admin: 02/28/19 10:23 Dose: 40 mg Benzonatate (Tessalon Cap*) 100 mg PO BID PRN PRN Reason: COUGH Last Admin: 02/22/19 02:25 Dose: 100 mg Calcium Carbonate (Tums*) 500 mg PO BID [facility] Last Admin: 02/28/19 10:23 Dose: 500 mg Dextrose (D50w Syringe 50 Ml*) 12.5 gm IV PUSH .FOR FS < 60 - SS PRN PRN Reason: FS < 60 Diltiazem HCl (Cardizem Cd Cap*) 240 mg PO DAILY [facility] Doxycycline Hyclate (Vibramycin Cap(*)) 100 mg PO 0600,1800 [facility] Last Admin: 02/28/19 05:46 Dose: 100 mg Folic Acid (Folvite Tab*) 1 mg PO DAILY [facility] Last Admin: 02/28/19 10:24 Dose: 1 mg Guaifenesin/Codeine Phosphate (Robitussin Ac 100mg-10mg*) 5 ml PO Q4H PRN PRN Reason: COUGH Last Admin: 02/23/19 04:32 Dose: 5 ml Piperacillin Sod/Tazobactam (Sod 3.375 gm/ Sodium Chloride) 100 mls @ 25 mls/ hr IVPB Q8H [facility] Stop: 03/05/19 13:00 Last Admin: 02/28/19 03:02 Dose: 25 mls/hr Insulin Human Lispro (Humalog*) 0 units SUBCUT [facility]; Protocol Last Admin: 02/28/19 10:22 Dose: 2 units Ipratropium [place] (Atrovent 0.5 Mg Neb.Mavis*) 0.5 mg INH Q4H PRN PRN Reason: SOB/WHEEZING Levalbuterol HCl (Xopenex 0.63mg/3ml Neb*) 0.63 mg INH Q4H PRN PRN Reason: SOB/WHEEZING Magnesium Oxide (Magox 400 Tab*) 400 mg PO BID [facility] Last Admin: 02/28/19 10:24 Dose: 400 mg Metoprolol Succinate (Toprol Xl Tab*) 100 mg PO BID [facility] Last Admin: 02/28/19 10:24 Dose: 100 mg Metoprolol Tartrate (Lopressor Iv*) 5 mg IV Q6H PRN PRN Reason: HEART RATE/PULSE Last Admin: 02/28/19 10:19 Dose: 5 mg Nicotine (Nicotine Patch 14 Mg/24 Hr*) 1 patch TRANSDERM DAILY [facility] Last Admin: 02/28/19 10:24 Dose: Not Given Ondansetron HCl (Zofran Inj*) 4 mg IV Q4H PRN PRN Reason: NAUSEA/VOMITING Oxycodone HCl (Roxycodone Tab*) 10 mg PO BEDTIME PRN PRN Reason: PAIN Last Admin: 02/18/19 23:24 Dose: 5 mg Oxycodone HCl (Roxycodone Tab*) 10 mg PO Q8H PRN PRN Reason: PAIN - SEVERE Last Admin: 02/28/19 11:15 Dose: 10 mg Oxycodone HCl (Roxycodone Tab*) 5 mg PO Q4H PRN PRN Reason: PAIN - MODERATE TO SEVERE Pantoprazole Sodium (Protonix Tab*) 40 mg PO DAILY [facility] Last Admin: 02/28/19 10:23 Dose: 40 mg Pharmacy Consult (Zosyn Per Pharmacy*) 1 note FOLLOW UP .ZOSYN PER PHARMACY [facility] Pharmacy Profile Note (Nicotine Patch Removal Note*) 1 note PATCH OFF 2100 [facility] Last Admin: 02/27/19 20:31 Dose: Not Given Polyethylene Glycol/Electrolytes (Miralax*) 17 gm PO DAILY [facility] Last Admin: 02/28/19 10:24 Dose: Not Given Thiamine HCl (Vitamin B-1 Tab*) 100 mg PO DAILY [facility] Last Admin: 02/28/19 10:23 Dose: 100 mg Tiotropium [place] (Spiriva Cap.Inh*) 1 cap INH DAILY [facility] Last Admin: 02/28/19 08:37 Dose: 1 cap Objective Vital Signs: Temp Pulse Resp BP Pulse Ox 98.0 F 100 18 129/92 95 02/28/19 07:31 02/28/19 08:38 02/28/19 11:15 02/28/19 07:31 02/28/19 08:38 Laboratory Results: 02/28/19 06:21 02/28/19 06:21 INR (Anticoag Therapy) 1.12 (0.82-1.09) H 02/28/19 11:06 Total Bilirubin 0.40 mg/dL (0.2-1.0) 02/24/19 06:58 AST 24 U/L (13-39) 02/24/19 06:58 ALT 24 U/L (7-52) 02/24/19 06:58 Alkaline Phosphatase 176 U/L (34-104) H 02/24/19 06:58 B-Natriuretic Peptide 733 pg/mL (<=100) H 02/21/19 04:11 Total Protein 6.0 g/dL (6.4-8.9) L 02/24/19 06:58 Albumin 2.4 g/dL (3.2-5.2) L 02/24/19 06:58 Globulin 3.6 g/dL (2-4) 02/24/19 06:58 Albumin/Globulin Ratio 0.7 (1-3) L 02/24/19 06:58 TSH 0.80 mcIU/mL (0.34-5.60) 02/19/19 06:22 02/18/19 14:09 Troponin I 0.02
[2019-02-28 11:31] LABS: INR 1.12 (0.82-1.09)
--- NOTE | 2019-02-28 11:37 | PN ---
Progress Note - Progress Note Date of Service: 02/28/19 SOAP: Subjective: CC: Abnormal chest CT - Lung mass vs pneumonia HPI: Mr. Vincent is a 63-year-old with past medical history significant for DM2, who is on oral antiglycemics at home; HTN; COPD; and chronic pain, who presented to the emergency room after having a low dose lung CT with abnormalities and noted to be hyperglycemic at his primary care provider's office. Denies fever, chills, shortness of breath, N/V/D. Reports improving cough and decreased sputum production. He is anxious to get home later today. Objective: Vital Signs - 8 hr 02/28/19 02/28/19 02/28/19 03:55 04:10 05:47 Temperature 98.3 F Pulse Rate 114 72 Respiratory 18 16 16 Rate Blood Pressure 136/95 (mmHg) O2 Sat by Pulse 93 92 Oximetry 02/28/19 02/28/19 02/28/19 07:31 08:00 08:38 Temperature 98.0 F Pulse Rate 126 100 100 Respiratory 16 18 18 Rate Blood Pressure 129/92 (mmHg) O2 Sat by Pulse 91 95 95 Oximetry Physical Exam: General: NAD, laying in bed Neurological: Alert and Oriented x 4 HEENT: Mosit MM, no thrush Cardiovascular: Heart rate irregular Respiratory: Lung sounds clear Abdominal: Bowel sounds present; ABD soft, non tender and non distended Skin: No rash Laboratory Results - last 24 hr 02/28/19 02/28/19 02/28/19 06:21 06:21 08:00 WBC 9.6 RBC 2.92 L Hgb 9.0 L Hct 27 L MCV 94 MCH 31 MCHC 33 RDW 14 Plt Count 628 H MPV 6.8 L Neut % (Auto) 77.7 Lymph % (Auto) 12.5 [place] % (Auto) 7.7 Eos % (Auto) 1.5 Baso % (Auto) 0.6 Absolute Neuts (auto) 7.5 Absolute Lymphs (auto) 1.2 Absolute Monos (auto) 0.7 Absolute Eos (auto) 0.1 Absolute Basos (auto) 0.1 Absolute Nucleated RBC 0.0 Nucleated RBC % 0.0 INR (Anticoag Therapy) Sodium 139 Potassium 3.4 L Chloride 102 Carbon Dioxide 25 Anion Gap 12 H BUN 5 L Creatinine 0.68 Est GFR ( Amer) 143.4 Est GFR (Non-Af Amer) 118.6 BUN/Creatinine Ratio 7.4 L Glucose 127 H POC Glucose (mg/dL) 143 H Calcium 8.3 L Phosphorus 4.0 Magnesium 1.6 L Microbiology 02/19/19 15:36 Gram Stain - Final Sputum Expectorated Sputum Culture - Final Streptococcus Constellatus YEAST Normal Abimbola 02/19/19 11:06 Aerobic Blood Culture - Final Blood Venous No Growth Day 5 Anaerobic Blood Culture - Final No Growth Day 5 02/20/19 17:53 Nasal Screen MRSA (PCR) - Final Nasal Mrsa Not Detected 02/19/19 16:40 Urine Culture - Final Urine 02/19/19 16:40 Legionella Urinary Antigen - Final Urine Negative Legionella Antigen Streptococcus pneumoniae Ag Screen - Final Negative S. pneumo Antigen Assessment: 1. Abnormal chest CT. The differential includes pneumonia vs tuberculosis vs neoplasm. Sputum culture showing yeast and streptococcus constellatus. The patient denies recent weight loss or night sweats. PPD read was negative yesterday. Afebrile and leukocytosis has resolved. Improving productive cough with yellow sputum. Plans for a CT guided lung biopsy later today. 2. Anemia. Labs show anemia of chronic disease. 3. Atrial Fibrillation. 4. COPD. 5. Chronic pain. 6. HTN. 7. DM2. Plan: Continue Zosyn while in the hospital. Plan to discharge on Levaquin to complete a total of 3 weeks of ABX. He will need followup imaging in about 6 weeks as an outpatient. He can followup with ID outpatient in 1-2 weeks.
--- NOTE | 2019-02-28 13:11 | PN ---
Progress Note - Progress Note Date of Service: 02/28/11 - Pulm f/u note Note: Pt seen and examined at bedside. Pt reports feeling better. Is anxious to have procedure and go home. Active Medications Generic Name Dose Route Start Last Admin Trade Name Freq PRN Reason Stop Dose Admin Acetaminophen 650 mg 02/18/19 16:32 02/22/19 16:48 Tylenol Tab* PO 650 mg Q4H PRN Administration FEVER/PAIN Atorvastatin Calcium 40 mg 02/19/19 09:00 02/28/19 10:23 Lipitor* PO 40 mg DAILY OLE Administration Benzonatate 100 mg 02/21/19 03:12 02/22/19 02:25 Tessalon Cap* PO 100 mg BID PRN Administration COUGH Calcium Carbonate 500 mg 02/21/19 21:00 02/28/19 10:23 Tums* PO 500 mg BID OLE Administration Dextrose 12.5 gm 02/18/19 17:00 D50w Syringe 50 Ml* IV PUSH .FOR FS < 60 - SS PRN FS < 60 Diltiazem HCl 240 mg 03/01/19 09:00 Cardizem Cd Cap* PO DAILY OLE Doxycycline Hyclate 100 mg 02/27/19 18:00 02/28/19 05:46 Vibramycin Cap(*) PO 100 mg 0600,1800 OLE Administration Folic Acid 1 mg 02/19/19 09:00 02/28/19 10:24 Folvite Tab* PO 1 mg DAILY OLE Administration Guaifenesin/Codeine Phosphate 5 ml 02/22/19 05:16 02/23/19 04:32 Robitussin Ac 100mg-10mg* PO 5 ml Q4H PRN Administration COUGH Piperacillin Sod/Tazobactam 100 mls @ 25 mls/hr 02/19/19 18:00 02/28/19 11:49 Sod 3.375 gm/ Sodium Chloride IVPB 03/05/19 13:00 25 mls/hr Q8H OLE Administration Insulin Human Lispro 0 units 02/18/19 21:00 02/28/19 11:51 Humalog* SUBCUT Not Given ACHS OLE Protocol Ipratropium Marcellus 0.5 mg 02/22/19 08:52 Atrovent 0.5 Mg Neb.Mavis* INH Q4H PRN SOB/WHEEZING Levalbuterol HCl 0.63 mg 02/22/19 08:51 Xopenex 0.63mg/3ml Neb* INH Q4H PRN SOB/WHEEZING Magnesium Oxide 400 mg 02/21/19 09:00 02/28/19 10:24 Magox 400 Tab* PO 400 mg BID OLE Administration Metoprolol Succinate 100 mg 02/21/19 21:00 02/28/19 10:24 Toprol Xl Tab* PO 100 mg BID OLE Administration Metoprolol Tartrate 5 mg 02/21/19 11:17 02/28/19 10:19 Lopressor Iv* IV 5 mg Q6H PRN Administration HEART RATE/PULSE Nicotine 1 patch 02/19/19 09:00 02/28/19 10:24 Nicotine Patch 14 Mg/24 Hr* TRANSDERM Not Given DAILY [facility] Ondansetron HCl 4 mg 02/18/19 16:32 Zofran Inj* IV Q4H PRN NAUSEA/VOMITING Oxycodone HCl 10 mg 02/18/19 16:39 02/18/19 23:24 Roxycodone Tab* PO 5 mg BEDTIME PRN Administration PAIN Oxycodone HCl 10 mg 02/18/19 16:41 02/28/19 11:15 Roxycodone Tab* PO 10 mg Q8H PRN Administration PAIN - SEVERE Oxycodone HCl 5 mg 02/26/19 18:54 Roxycodone Tab* PO Q4H PRN PAIN - MODERATE TO SEVERE Pantoprazole Sodium 40 mg 02/19/19 09:00 02/28/19 10:23 Protonix Tab* PO 40 mg DAILY [facility] Administration Pharmacy Consult 1 note 02/19/19 13:00 Zosyn Per Pharmacy* FOLLOW UP .ZOSYN PER PHARMACY [facility] Pharmacy Profile Note 1 note 02/18/19 21:00 02/27/19 20:31 Nicotine Patch Removal Note* PATCH OFF Not Given 2100 [facility] Polyethylene Glycol/Electrolytes 17 gm 02/22/19 09:00 02/28/19 10:24 Miralax* PO Not Given DAILY [facility] Thiamine HCl 100 mg 02/19/19 09:00 02/28/19 10:23 Vitamin B-1 Tab* PO 100 mg DAILY OLE Administration Tiotropium Marcellus 1 cap 02/19/19 09:00 02/28/19 08:37 Spiriva Cap.Inh* INH 1 cap DAILY OLE Administration Vital Signs Temp Pulse Resp BP Pulse Ox 97.9 F 114 18 148/80 95 02/28/19 11:13 02/28/19 11:13 02/28/19 11:15 02/28/19 11:13 02/28/19 11:13 O/E: Pt is anxious, agitated HEENT: PERRLA, no JVD Lungs: Diminished breath sounds on right side, inspiratory squeaks + CVS: S1, S2+ Abd: Soft, BS+ Ext: Normal ROM Skin: No rash Neuro: Alert, awake, no focal deficits Laboratory Results - last 24 hr 02/27/19 02/27/19 02/28/19 17:12 20:35 06:21 WBC 9.6 RBC 2.92 L Hgb 9.0 L Hct 27 L MCV 94 MCH 31 MCHC 33 RDW 14 Plt Count 628 H MPV 6.8 L Neut % (Auto) 77.7 Lymph % (Auto) 12.5 [place] % (Auto) 7.7 Eos % (Auto) 1.5 Baso % (Auto) 0.6 Absolute Neuts (auto) 7.5 Absolute Lymphs (auto) 1.2 Absolute Monos (auto) 0.7 Absolute Eos (auto) 0.1 Absolute Basos (auto) 0.1 Absolute Nucleated RBC 0.0 Nucleated RBC % 0.0 INR (Anticoag Therapy) Sodium Potassium Chloride Carbon Dioxide Anion Gap BUN Creatinine Est GFR ( Amer) Est GFR (Non-Af Amer) BUN/Creatinine Ratio Glucose POC Glucose (mg/dL) 124 H 168 H Calcium Phosphorus Magnesium 02/28/19 02/28/19 02/28/19 06:21 08:00 11:06 WBC RBC Hgb Hct MCV MCH MCHC RDW Plt Count MPV Neut % (Auto) Lymph % (Auto) [place] % (Auto) Eos % (Auto) Baso % (Auto) Absolute Neuts (auto) Absolute Lymphs (auto) Absolute Monos (auto) Absolute Eos (auto) Absolute Basos (auto) Absolute Nucleated RBC Nucleated RBC % INR (Anticoag Therapy) 1.12 H Sodium 139 Potassium 3.4 L Chloride 102 Carbon Dioxide 25 Anion Gap 12 H BUN 5 L Creatinine 0.68 Est GFR ( Amer) 143.4 Est GFR (Non-Af Amer) 118.6 BUN/Creatinine Ratio 7.4 L Glucose 127 H POC Glucose (mg/dL) 143 H Calcium 8.3 L Phosphorus 4.0 Magnesium 1.6 L 02/28/19 11:47 WBC RBC Hgb Hct MCV MCH MCHC RDW Plt Count MPV Neut % (Auto) Lymph % (Auto) [place] % (Auto) Eos % (Auto) Baso % (Auto) Absolute Neuts (auto) Absolute Lymphs (auto) Absolute Monos (auto) Absolute Eos (auto) Absolute Basos (auto) Absolute Nucleated RBC Nucleated RBC % INR (Anticoag Therapy) Sodium Potassium Chloride Carbon Dioxide Anion Gap BUN Creatinine Est GFR ( Amer) Est GFR (Non-Af Amer) BUN/Creatinine Ratio Glucose POC Glucose (mg/dL) 167 H Calcium Phosphorus Magnesium I/R: 63 year old male with hx of COPD and ETOH use that presented to the ER after being sent by his PCP for evaluation of abnormal findings on screening chest CT. CT chest rpt showed worsening findings Unclear etiology- Infectious versus inflammatory versus neoplastic Pt will need biopsy to delineate etiology- Will need to send tissue for pathology and cultures-bacterial, fungal and AFB Lovenox being held Pt NPO after midnight Pt wanting to be d/keshawn Plan for oral abx upon d/c Will f/u as out pt in 1 week D/w Dr Hernandez
[2019-02-28] MEDS ORDERED: fentaNYL* 50 MCG/ML 2 ML VIAL (100 MCG VIAL) ONE (13:58)
[2019-02-28 17:25] LABS: BUN/Creatinine Ratio 8.7 (8-20); Calcium 8.8 mg/dL (8.6-10.3); EGFR Non-African American 116.6 (>60); Potassium 3.9 mmol/L (3.5-5.0)
--- NOTE | 2019-02-28 19:01 | PN ---
Subjective Date of Service: 02/28/19 Interval History: Awake, alert. no acute distress. doing well. no fever or chills Past Medical History: Unchanged from Admission Objective Active Medications: Acetaminophen (Tylenol Tab*) 650 mg PO Q4H PRN PRN Reason: FEVER/PAIN Last Admin: 02/22/19 16:48 Dose: 650 mg Atorvastatin Calcium (Lipitor*) 40 mg PO DAILY [facility] Last Admin: 02/28/19 10:23 Dose: 40 mg Benzonatate (Tessalon Cap*) 100 mg PO BID PRN PRN Reason: COUGH Last Admin: 02/22/19 02:25 Dose: 100 mg Calcium Carbonate (Tums*) 500 mg PO BID [facility] Last Admin: 02/28/19 10:23 Dose: 500 mg Dextrose (D50w Syringe 50 Ml*) 12.5 gm IV PUSH .FOR FS < 60 - SS PRN PRN Reason: FS < 60 Diltiazem HCl (Cardizem Cd Cap*) 240 mg PO DAILY [facility] Doxycycline Hyclate (Vibramycin Cap(*)) 100 mg PO 0600,1800 [facility] Last Admin: 02/28/19 05:46 Dose: 100 mg Folic Acid (Folvite Tab*) 1 mg PO DAILY [facility] Last Admin: 02/28/19 10:24 Dose: 1 mg Guaifenesin/Codeine Phosphate (Robitussin Ac 100mg-10mg*) 5 ml PO Q4H PRN PRN Reason: COUGH Last Admin: 02/23/19 04:32 Dose: 5 ml Piperacillin Sod/Tazobactam (Sod 3.375 gm/ Sodium Chloride) 100 mls @ 25 mls/ hr IVPB Q8H [facility] Stop: 03/05/19 13:00 Last Admin: 02/28/19 11:49 Dose: 25 mls/hr Insulin Human Lispro (Humalog*) 0 units SUBCUT ACHS [facility]; Protocol Last Admin: 02/28/19 18:17 Dose: Not Given Ipratropium [place] (Atrovent 0.5 Mg Neb.Mavis*) 0.5 mg INH Q4H PRN PRN Reason: SOB/WHEEZING Levalbuterol HCl (Xopenex 0.63mg/3ml Neb*) 0.63 mg INH Q4H PRN PRN Reason: SOB/WHEEZING Magnesium Oxide (Magox 400 Tab*) 400 mg PO BID [facility] Last Admin: 02/28/19 10:24 Dose: 400 mg Metoprolol Succinate (Toprol Xl Tab*) 100 mg PO BID [facility] Last Admin: 02/28/19 10:24 Dose: 100 mg Metoprolol Tartrate (Lopressor Iv*) 5 mg IV Q6H PRN PRN Reason: HEART RATE/PULSE Last Admin: 02/28/19 10:19 Dose: 5 mg Nicotine (Nicotine Patch 14 Mg/24 Hr*) 1 patch TRANSDERM DAILY [facility] Last Admin: 02/28/19 10:24 Dose: Not Given Ondansetron HCl (Zofran Inj*) 4 mg IV Q4H PRN PRN Reason: NAUSEA/VOMITING Oxycodone HCl (Roxycodone Tab*) 10 mg PO BEDTIME PRN PRN Reason: PAIN Last Admin: 02/18/19 23:24 Dose: 5 mg Oxycodone HCl (Roxycodone Tab*) 10 mg PO Q8H PRN PRN Reason: PAIN - SEVERE Last Admin: 02/28/19 11:15 Dose: 10 mg Oxycodone HCl (Roxycodone Tab*) 5 mg PO Q4H PRN PRN Reason: PAIN - MODERATE TO SEVERE Pantoprazole Sodium (Protonix Tab*) 40 mg PO DAILY [facility] Last Admin: 02/28/19 10:23 Dose: 40 mg Pharmacy Consult (Zosyn Per Pharmacy*) 1 note FOLLOW UP .ZOSYN PER PHARMACY [facility] Pharmacy Profile Note (Nicotine Patch Removal Note*) 1 note PATCH OFF 2100 [facility] Last Admin: 02/27/19 20:31 Dose: Not Given Polyethylene Glycol/Electrolytes (Miralax*) 17 gm PO DAILY [facility] Last Admin: 02/28/19 10:24 Dose: Not Given Thiamine HCl (Vitamin B-1 Tab*) 100 mg PO DAILY [facility] Last Admin: 02/28/19 10:23 Dose: 100 mg Tiotropium [place] (Spiriva Cap.Inh*) 1 cap INH DAILY [facility] Last Admin: 02/28/19 08:37 Dose: 1 cap Vital Signs - 8 hr 02/28/19 02/28/19 02/28/19 11:13 11:15 15:30 Temperature 97.9 F 98.0 F Pulse Rate 114 83 Respiratory 14 18 17 Rate Blood Pressure 148/80 138/93 (mmHg) O2 Sat by Pulse 95 93 Oximetry 02/28/19 02/28/19 15:49 17:53 Temperature 98.1 F Pulse Rate 85 Respiratory 16 18 Rate Blood Pressure 131/96 (mmHg) O2 Sat by Pulse 94 Oximetry Oxygen Devices in Use Now: None Appearance: Awake. alert no distress eating well. he did have on episode of hemoptysis post procedure but no dsypnea Eyes: No Scleral Icterus, - Ears/Nose/Mouth/Throat: NL Teeth, Lips, Gums, Mucous Membranes Moist Neck: NL Appearance and Movements; NL JVP, Trachea Midline Respiratory: - - diminished breath sound at right base. expiratory wheezing Cardiovascular: NL Sounds; No Murmurs; No JVD Extremities: No Edema Neurological: Alert and Oriented x 3 Result Diagrams: 02/28/19 06:21 02/28/19 16:59 Additional Lab and Data: Laboratory Results - last 24 hr 02/25/19 02/25/19 02/26/19 19:39 21:30 06:24 WBC 12.2 H RBC 2.88 L Hgb 9.0 L Hct 27 L MCV 94 MCH 31 MCHC 33 RDW 14 Plt Count 636 H D MPV 7.1 L Neut % (Auto) 79.7 Lymph % (Auto) 9.4 [place] % (Auto) 7.4 Eos % (Auto) 2.3 Baso % (Auto) 1.2 Absolute Neuts (auto) 9.7 H Absolute Lymphs (auto) 1.1 Absolute Monos (auto) 0.9 H Absolute Eos (auto) 0.3 Absolute Basos (auto) 0.1 Absolute Nucleated RBC 0.0 Nucleated RBC % 0.0 Sodium Potassium Chloride Carbon Dioxide Anion Gap BUN Creatinine Est GFR ( Amer) Est GFR (Non-Af Amer) BUN/Creatinine Ratio Glucose POC Glucose (mg/dL) 122 H Calcium Magnesium Iron 17 L TIBC 130 L % Saturation 13 L Unsat Iron Binding < 115 Transferrin 93 L Ferritin 714.2 H C-Reactive Protein Vitamin B12 622 Folate 15.76 02/26/19 02/26/19 02/26/19 06:25 07:15 11:57 WBC RBC Hgb Hct MCV MCH MCHC RDW Plt Count MPV Neut % (Auto) Lymph % (Auto) [place] % (Auto) Eos % (Auto) Baso % (Auto) Absolute Neuts (auto) Absolute Lymphs (auto) Absolute Monos (auto) Absolute Eos (auto) Absolute Basos (auto) Absolute Nucleated RBC Nucleated RBC % Sodium 139 Potassium 3.6 Chloride 102 Carbon Dioxide 23 Anion Gap 14 H BUN 5 L Creatinine 0.65 L Est GFR ( Amer) 151.1 Est GFR (Non-Af Amer) 124.9 BUN/Creatinine Ratio 7.7 L Glucose 140 H POC Glucose (mg/dL) 160 H 89 Calcium 8.1 L Magnesium 1.7 L Iron TIBC % Saturation Unsat Iron Binding Transferrin Ferritin C-Reactive Protein 118.37 H Vitamin B12 Folate 02/26/19 17:08 WBC RBC Hgb Hct MCV MCH MCHC RDW Plt Count MPV Neut % (Auto) Lymph % (Auto) [place] % (Auto) Eos % (Auto) Baso % (Auto) Absolute Neuts (auto) Absolute Lymphs (auto) Absolute Monos (auto) Absolute Eos (auto) Absolute Basos (auto) Absolute Nucleated RBC Nucleated RBC % Sodium Potassium Chloride Carbon Dioxide Anion Gap BUN Creatinine Est GFR ( Amer) Est GFR (Non-Af Amer) BUN/Creatinine Ratio Glucose POC Glucose (mg/dL) 91 Calcium Magnesium Iron TIBC % Saturation Unsat Iron Binding Transferrin Ferritin C-Reactive Protein Vitamin B12 Folate Microbiology and Other Data: Microbiology 02/19/19 15:36 Sputum Expectorated Gram Stain - Final 02/19/19 15:36 Sputum Expectorated Sputum Culture - Final Streptococcus Constellatus YEAST Normal [place]imbola 02/19/19 11:06 Blood Venous Aerobic Blood Culture - Final No Growth Day 5 02/19/19 11:06 Blood Venous Anaerobic Blood Culture - Final No Growth Day 5 02/20/19 17:53 Nasal Nasal Screen MRSA (PCR) - Final Mrsa Not Detected 02/19/19 16:40 Urine Urine Culture - Final 02/19/19 16:40 Urine Legionella Urinary Antigen - Final Negative Legionella Antigen 02/19/19 16:40 Urine Streptococcus pneumoniae Ag Screen - Final Negative S. pneumo Antigen Diagnostic Imaging: . EKG Data: Afib Assess/Plan/Problems-Billing Assessment: This is a 63 year old male with hx of COPD and ETOH use that presented to the ER after being sent by his PCP for evaluation of abnormal findings on screening chest CT. - Patient Problems (1) Lung mass Current Visit: Yes Status: Acute Code(s): R91.8 - OTHER NONSPECIFIC ABNORMAL FINDING OF LUNG FIELD SNOMED Code(s): 195345570 Comment: - Repeat CT on 02/27/19 showed worsening "necrotizing pneumonia" - PPD placed (02/25) today read negative - s/p US guided biopsy today (2) Necrotizing pneumonia Current Visit: Yes Status: Acute Code(s): J85.0 - GANGRENE AND NECROSIS OF LUNG SNOMED Code(s): 7633658 Comment: - Consults with Dr. Singleton and Dr. Fatima appreciated who suspect less likely mass, continue to treat for pneumonia. - Sputum cultures resulted and abx changed accordingly. Now on Zosyn. ID consulting and recommends PO Levaquin at discharge for a total of 3 weeks of abx. - Negative urine strep antigen, negative legionella - Repeat CT on 02/27/19 showed worsening "necrotizing pneumonia" - PPD placed (02/25) today read negative - s/p US guided biopsy 02/28/19 (3) Anemia Current Visit: Yes Status: Acute Code(s): D64.9 - ANEMIA, UNSPECIFIED SNOMED Code(s): 006357300 Comment: - Anemic and stable since admission. - Iron studies consistent with anemia of chronic disease/inflammation. (4) Atrial fibrillation with rapid ventricular response Current Visit: Yes Status: Acute Code(s): I48.91 - UNSPECIFIED ATRIAL FIBRILLATION SNOMED Code(s): 891606806222389 Comment: - s/p Afib with RVR in setting of acute etoh withdrawal - s/p cardizem drip than transition to amiodorone on 02/22. NSR as of 02/23. Cardiology consulted and switched PO Cardizem 120 mg Daily (increased to 240 mg daily on 02/28/19 due to afib and RVR on 02/28/19. Continue his metoprolol 100 mg bid. - Will need anti coagulation at discharge. Currently on full dose Lovenox (on hold this evening for lung biopsy in am). - Electrolytes replaced - Post procedure he did have sinus pause for 3 secs... Will decrease metoprolol to 50 mg tonight and reassess in am (5) COPD (chronic obstructive pulmonary disease) Current Visit: Yes Status: Acute Code(s): J44.9 - CHRONIC OBSTRUCTIVE PULMONARY DISEASE, UNSPECIFIED SNOMED Code(s): 76521915 Comment: - History of tobacco use - Continue home inhalers (6) EtOH dependence Current Visit: Yes Status: Acute Code(s): F10.20 - ALCOHOL DEPENDENCE, UNCOMPLICATED SNOMED Code(s): 81564194 Comment: - Resolved. s/p ICU and precedex drip previously (7) Uncontrolled type 2 diabetes mellitus with hyperglycemia Current Visit: Yes Status: Acute Code(s): E11.65 - TYPE 2 DIABETES MELLITUS WITH HYPERGLYCEMIA SNOMED Code(s): 211124825 Comment: - A1c 14.9 - Hyperglycemic on admission. - Dr. Ring consulted - Initially on lantus, sliding scale, and AC insulin; but now only ss given hypoglycemic episodes. - Patient drinking chau daily which could have been attributing to poor blood sugar control as outpatient. - Will need follow up as outpatient as BG is controlled in this controlled setting (8) DVT prophylaxis Current Visit: Yes Status: Acute Code(s): JTQ7797 - SNOMED Code(s): 963419052 Comment: - lovenox for now full dose due to afib. Will need oral anticoagulation on discharge Status and Disposition: Inpatient. Discharge when medically stable
[2019-02-28] MEDS ORDERED: traZODone TAB* 50 MG TAB PO PRN (19:15)
[2019-02-28] MEDS: Metoprolol Succinate XL TAB* 50 MG PO SCH (21:39)
[2019-02-28] MEDS: Nicotine Patch Removal NOTE PATCH OFF SCH (21:46)
[2019-03-01] MEDS: ZOSYN 3.375 GM Q8H per EXTENDED INFUSION IVPB SCH ×2 (02:07)
[2019-03-01] MEDS: DOXYcycline CAP(*) 100 MG PO SCH (05:43)
[2019-03-01 06:10] LABS: BUN/Creatinine Ratio 9.9 (8-20); Calcium 8.4 mg/dL (8.6-10.3); EGFR African American 136.5 (>60); EGFR Non-African American 112.8 (>60); Magnesium 1.9 mg/dL (1.9-2.7); Phosphorus 3.7 mg/dL (2.5-5.0); Potassium 3.8 mmol/L (3.5-5.0)
[2019-03-01] MEDS: Tiotropium CAP.INH* CAP.INH/18 MCG (USE ORDER SET !) INH SCH (07:23)
[2019-03-01 08:20] VITALS: BP 140/88
[2019-03-01] MEDS: Magnesium Oxide TAB* 400 MG PO SCH (08:22)
[2019-03-01] MEDS: Atorvastatin* 40 MG TAB PO SCH (08:22)
[2019-03-01] MEDS: Pantoprazole TAB * 40 MG TAB PO SCH (08:22)
[2019-03-01] MEDS: oxyCODONE TAB* 5 MG TAB PO PRN (08:22)
[2019-03-01] MEDS: Folic Acid TAB* 1 MG PO SCH (08:22)
[2019-03-01] MEDS: Thiamine TAB* 100 MG TAB PO SCH (08:22)
[2019-03-01] MEDS: Metoprolol Succinate XL TAB* 50 MG PO SCH (08:22)
[2019-03-01] MEDS: Calcium Carbonate CHEW TAB* 500 MG (TUMS) PO SCH (08:24)
[2019-03-01] MEDS: Insulin LISPRO* 1 UNITS UNIT SUBCUT SCH (08:24)
[2019-03-01] MEDS: Nicotine PATCH 14 MG/24 HR* PATCH TRANSDERM SCH (08:30)
[2019-03-01] MEDS: Polyethylene Glycol 3350* 17 GM PACKET PO SCH (08:30)
[2019-03-01] MEDS ORDERED: Diltiazem CD CAP* 240 MG PO SCH (09:00)
--- NOTE | 2019-03-02 08:50 | DS ---
DISCHARGE SUMMARY: DATE OF ADMISSION: DATE OF DISCHARGE: 03/01/19. FINAL DISCHARGE DIAGNOSES: 1. Right lung mass versus necrotizing pneumonia. 2. Pneumonia most likely necrotizing. 3. Anemia suggestive of chronic anemia. 4. Atrial fibrillation with rapid ventricular response. 5. Chronic obstructive pulmonary disease with excess tobacco using. 6. History of alcohol dependence status post alcohol withdrawal. 7. Uncontrolled diabetes mellitus with A1c of 14.9. HOSPITAL COURSE: The patient presented to the emergency room after he was sent to the hospital at the discretion of his primary care provider for abnormal CT scan that was scheduled on an outpatient basis. The patient was admitted to the hospital through our facility and his CT scan showed right upper lobe mass suggestive of either malignancy versus necrotizing pneumonia. The patient was started on broad spectrum antibiotic, Infectious Disease consult obtained, and Hematology-Oncology with Dr. Singleton. At that time, they recommended to continue the treatment with antibiotic for 2 weeks, repeat CT scan in 3 weeks to make sure it was resolved. The patient was seen by me on the first encounter on 07/10. A CT scan of the chest was repeated that day to see if there was any improvement of his lung mass after at least a week of antibiotic treatment. Unfortunately, his CT scan shows worsening of his right upper lobe mass. Hence , had a long discussion with the patient and family and was able to convince him to remain in the hospital until further workup such as either bronchoalveolar lavage or CT guided biopsy. ID consulted test fixture assembler Dr. Fatima, who was in agreement in the plan and recommended to add doxycycline and then scheduled for CT guided biopsy. The patient's Lovenox was held and he underwent biopsy on 02/28/19, results are pending. That evening, he developed sinus pause on the therapy of diltiazem 240 and Lopressor 100 b.i.d., for which I held his Lopressor and downgraded to 50 b.i.d., and he has been in sinus rhythm. Today, he was seen, evaluated post biopsy, chest x-ray ordered post biopsy, it revealed no pneumothorax and he was deemed stable for discharge with him fully understanding that the results are still pending and he needs to follow up as outlined below with his outpatient appointment. PHYSICAL EXAM: Vital Signs: Temperature 97.9, pulse 65, respiratory 18, satting 93% on room air, blood pressure 140/88. General: He is awake, alert, and oriented. Head and Neck: Normocephalic and atraumatic. Lungs: Diminished breath sounds in right base and right middle lobe. Cardiovascular: S1 and S2. Regular rate and rhythm. Abdomen: Positive bowel sounds, soft, nontender, and nondistended. Extremities: No pedal edema. Positive clubbing. REGISTERED MIDWIFE: No motor, focal, or sensory deficits. DIAGNOSTIC IMPRESSION: He had multiple labs throughout the hospital course, most pronounced white count of 16,000 on admission it is down 9.6 yesterday. Hematocrit is 29, stable in the 27 on discharge. He presented with platelet of 445 up to 628 on the day of discharge. Chemistry, multiple: Sodium was as low as 118, secondary to his hyponatremia due to alcohol up to 138 on discharge. His Glucose is fluctuating, but his A1c was 14. Microbiology blood cultures were negative. Sputum grew Streptococcus constellatus. MRSA screen was negative. Tissue biopsy and tissue culture from the lung biopsy remain pending at the time of this dictation. PPD was done that was negative. IMAGING STUDY: Diagnostic CT chest on 02/18/19 shows right upper lobe mass negative for pulmonary embolism, enlarged mediastinal and right hilar lymph nodes. A 2D echo done on 02/26/19 revealed systolic function 55%-60%. Repeat CT 02/27/19 shows worsening metastatic like lung lesion of the right upper lobe and opacification suggestive of possible mass malignancy. Multiple chest x-ray and a CT biopsy on 02/28/19 pending. DISCHARGE MEDICATIONS: The patient was discharged on: 1. Nicotine patch. 2. Omeprazole 20 mg daily. 3. Oxycodone 5 mg at bedtime as per home. 4. Oxycodone 5-10 mg every 8 hours as per home. 5. Crestor 20 mg daily. 6. Janumet one tablet daily. 7. Spiriva one tablet 18 mcg daily. 8. Tylenol as needed. 9. Diltiazem 240 mg daily. 10. Folic acid 1 mg daily. 11. Insulin, we will discontinue it. 12. Levaquin 500 mg daily. 13. Magnesium 400 b.i.d. 14. Toprol XL 50 b.i.d., this one decreased from 100 b.i.d.. As on 02/28/19, the patient developed sinus pause after he received his metoprolol and the higher dose of diltiazem 240. Therefore, I decreased it to 50 b.i.d. given history of COPD. I kept his diltiazem at 240 and he has been in sinus rhythm since. 15. Potassium 20 mEq daily. 16. Xarelto 20 mg daily. 17. Thiamine daily. DISCHARGE RECOMMENDATION AND PLAN: For his right upper lobe lung mass, status post biopsy, result is pending. The patient is made aware to make an appointment follow up with Dr. Fatima in one week. For his necrotizing pneumonia, at this time he is to continue his Levaquin 500 mg daily for addition of 2 weeks. Follow up with Infectious Disease in 1-[address] Fatima in one week. For his atrial fibrillation, status post rapid ventricular response, he is converted into sinus rhythm. I discharged him on the diltiazem 240 mg daily; however, his metoprolol was decreased to 50 b.i.d., from 100 as he developed sinus pause right after his diltiazem was increased to 240. Continue Xarelto 20 mg daily. For his COPD, advised for smoking cessation, continue his inhalers per home. For alcohol dependency, advised for alcohol cessation. For his diabetes mellitus, which blood sugar has been in the 140s while in the hospital. I had him resume his previous medication Janumet and further medication adjustment outpatient as recommendation per his primary. DISCHARGE CONDITION: Stable. DISCHARGE DISPOSITION: To home. [id number]/CPS #: [id number] JAMEEL
== END 2019-03-01 10:40 | disposition home or self-care (01) | DRG 720 ==
LOC: ED 12:41 → MED 16:32 → OBSVTOIN 02-19 14:00 → MEDTELE 02-20 04:54 → ICU 02-20 12:01 → MEDTELE 02-23 11:18
PROVIDERS: ADMIT Hospitalist; ATTEND Internal Medicine
PROC: 0B9C3ZX Drainage of Right Upper Lung Lobe, Percutaneous Approach, Diagnostic (ICD-10-PCS; principal; 2019-02-28)
DX: A41.9 Sepsis, unspecified organism (principal); J85.0 Gangrene and necrosis of lung; R65.21 Severe sepsis with septic shock; J96.01 Acute respiratory failure with hypoxia; E87.1 Hypo-osmolality and hyponatremia; F10.231 Alcohol dependence with withdrawal delirium; E87.2 Acidosis; J90 Pleural effusion, not elsewhere classified; I10 Essential (primary) hypertension; E11.65 Type 2 diabetes mellitus with hyperglycemia; E86.0 Dehydration; K42.9 Umbilical hernia without obstruction or gangrene; F17.210 Nicotine dependence, cigarettes, uncomplicated; K59.00 Constipation, unspecified; J43.9 Emphysema, unspecified; Y90.9 Presence of alcohol in blood, level not specified; I95.9 Hypotension, unspecified; R00.0 Tachycardia, unspecified; K76.0 Fatty (change of) liver, not elsewhere classified; G89.4 Chronic pain syndrome; D63.8 Anemia in other chronic diseases classified elsewhere; I48.0 Paroxysmal atrial fibrillation; E87.6 Hypokalemia; E83.51 Hypocalcemia; E83.42 Hypomagnesemia; I49.5 Sick sinus syndrome; Z79.4 Long term (current) use of insulin; Z80.3 Family history of malignant neoplasm of breast; Z79.01 Long term (current) use of anticoagulants
CPT/HCPCS: 10005; 36415; 36600; 71045; 71046; 71250; 71275; 76604; 80048; 80053; 81003; 81015; 82010; 82607; 82728; 82746; 82803; 82947; 83036; 83540; 83550; 83605; 83735; 83880; 84100; 84443; 84484; 85025; 85027; 85610; 86140; 87040; 87070; 87077; 87086; 87102; 87116; 87186; 87205; 87206; 87641; 87899; 88172; 88173; 88177; 88305; 93005; 93306; 94640; 99284; A9270-GY; J0456; J1160; J1644; J1650; J1815; J2543; J3010; J3475; J3480; J3490; P9047; Q9967